=== PATIENT | female | born 1965 | race Caucasian/White ===

== ENCOUNTER 2018-10-17 04:33 | Inpatient (IN) | payer BC ==
[2018-10-17] MEDS ORDERED: SODIUM CHLORIDE 0.9% 1,000 ML IV STA (04:45)
[2018-10-17] MEDS ORDERED: ASPIRIN 81 MG PO STA (04:45)
--- NOTE | 2018-10-17 04:46 | ED ---
General Adult HPI - General Chief complaint: Chest Pain Stated complaint: chest pain Time Seen by Provider: 10/17/18 04:44 Source: patient Mode of arrival: ambulatory Limitations: no limitations - History of Present Illness Initial comments: Thao is a 53-year-old female who presents to the emergency department today for evaluation of sudden onset of abdominal pain, chest pain, nausea and vomiting. She reports she has been in her usual state of health, she woke suddenly this morning of severe stabbing epigastric abdominal pain which radiates through to her back and into her chest, is 10 out of 10 in intensity associated with nausea, vomiting and a sensation of shortness of breath due to pain with breathing. She has never experienced anything like this in the past. She has no known cardiac history. - Related Data Home Medications Medication Instructions Recorded Confirmed Escitalopram [Lexapro] 20 mg PO DAILY 10/17/18 10/17/18 Magnesium 200 mg PO DAILY 10/17/18 10/17/18 [place]-3 Fatty Acids/Fish Oil [Fish 1 tab PO DAILY 10/17/18 10/17/18 Oil 1,000 mg Softgel] Turmeric Root Extract [Turmeric] 500 mg PO DAILY 10/17/18 10/17/18 traZODone HCL 50 mg PO HS PRN 10/17/18 10/17/18 Allergies Allergy/AdvReac Type Severity Reaction Status Date / Time acetaminophen [From Percocet] AdvReac Vomiting Verified 10/17/18 08:24 oxycodone [From Percocet] AdvReac Vomiting Verified 10/17/18 08:24 Review of Systems ROS Statement: Those systems with pertinent positive or pertinent negative responses have been documented in the HPI. ROS Other: All systems not noted in ROS Statement are negative. Past Medical History Additional Past Medical History / Comment(s): cpap at night History of Any Multi-Drug Resistant Organisms: None Reported Past Surgical History: Adenoidectomy, Appendectomy, Orthopedic Surgery Additional Past Surgical History / Comment(s): finger surgery, Smoking Status: Current every day smoker Past Alcohol Use History: None Reported Past Drug Use History: None Reported General Exam - General Exam Comments Initial Comments: Physical Exam GENERAL: Patient in severe pain, hunched over, heaving HENT: Normocephalic, Atraumatic. EYES: PERRL, EOMI PULMONARY: Tachypnea CARDIOVASCULAR: There is a regular rate and rhythm without any murmurs gallops or rubs. ABDOMEN: Tenderness to palpation in the epigastrium and right upper quadrant SKIN: Skin is clear with no lesions or rashes and otherwise unremarkable. : Deferred NEUROLOGIC: Patient is alert and oriented x3. Moving all extremities spontaneously MUSCULOSKELETAL: Normal extremities with adequate strength and full range of motion. No lower extremity swelling or edema. No calf tenderness. PSYCHIATRIC: Normal psychiatric evaluation. Limitations: no limitations Limitations: no limitations Course Vital Signs 10/17/18 10/17/18 10/17/18 04:36 06:10 07:03 Pulse Rate 66 78 78 Respiratory 20 18 16 Rate Blood Pressure 111/67 118/87 129/83 O2 Sat by Pulse 95 99 96 Oximetry 10/17/18 07:50 Pulse Rate 74 Respiratory 18 Rate Blood Pressure 120/60 O2 Sat by Pulse 98 Oximetry EKG Findings - EKG Comments: EKG Findings:: EKG obtained therefore 30 9 AM, rate is 66, rhythm sinus, there is normal axis, normal intervals, WI 140, QRS 86, QTC is 434. There are no acute ST elevations or depressions there is no evidence of acute ischemia or infarction. Medical Decision Making - Medical Decision Making was seen and evaluated immediately upon arrival to the emergency department, patient is in acute distress, retching, holding her stomach, complains of pain from her epigastrium through her chest with associated nausea , vomiting and shortness of breath Cardiac as well as abdominal labs ordered Labs consistent with acute pancreatitis Additional IV fluids, IV narcotics, antiemetics ordered US was ordered and revealed no dilatation of the common bile duct and no evidence of acute cholecystitis Patient care was discussed with Dr. Rodriguez who accepts the admission for acute pancreatitis, requests lipid panel and triglycerides to be evaluated, holds statin medications, consult GI Winkelman orders placed - Lab Data Result diagrams: 10/17/18 04:47 10/17/18 05:51 Lab Results 10/17/18 10/17/18 10/17/18 Range/Units 04:47 04:47 04:47 WBC 14.7 H (3.8-10.6) k/uL RBC 5.20 (3.80-5.40) m/uL Hgb 14.7 (11.4-16.0) gm/dL Hct 45.9 (34.0-46.0) % MCV 88.2 (80.0-100.0) fL MCH 28.3 (25.0-35.0) pg MCHC 32.1 (31.0-37.0) g/dL RDW 14.3 (11.5-15.5) % Plt Count 334 (150-450) k/uL Neutrophils % 81 % Lymphocytes % 12 % Monocytes % 4 % Eosinophils % 1 % Basophils % 0 % Neutrophils # 11.9 H (1.3-7.7) k/uL Lymphocytes # 1.8 (1.0-4.8) k/uL Monocytes # 0.6 (0-1.0) k/uL Eosinophils # 0.2 (0-0.7) k/uL Basophils # 0.0 (0-0.2) k/uL PT 10.2 (9.0-12.0) sec INR 0.9 (<1.2) APTT 22.4 (22.0-30.0) sec D-Dimer 0.79 H (<0.60) mg/L FEU Sodium (137-145) mmol/L Potassium (3.5-5.1) mmol/L Chloride (98-107) mmol/L Carbon Dioxide (22-30) mmol/L Anion Gap mmol/L BUN (7-17) mg/dL Creatinine (0.52-1.04) mg/dL Est GFR (CKD-EPI)AfAm (>60 ml/min/1.73 sqM) Est GFR (CKD-EPI)NonAf (>60 ml/min/1.73 sqM) Glucose (74-99) mg/dL Calcium (8.4-10.2) mg/dL Magnesium (1.6-2.3) mg/dL Total Bilirubin (0.2-1.3) mg/dL AST (14-36) U/L ALT (9-52) U/L Alkaline Phosphatase (38-126) U/L Total Creatine Kinase (30-135) U/L CK-MB (CK-2) (0.0-2.4) ng/mL CK-MB (CK-2) Rel Index Troponin I (0.000-0.034) ng/mL NT-Pro-B Natriuret Pep 70 pg/mL Total Protein (6.3-8.2) g/dL Albumin (3.5-5.0) g/dL Triglycerides (<150) mg/dL Cholesterol (<200) mg/dL LDL Cholesterol, Calc (0-99) mg/dL HDL Cholesterol (40-60) mg/dL Amylase (30-110) U/L Lipase (23-300) U/L 10/17/18 10/17/18 10/17/18 Range/Units 05:51 05:51 05:51 WBC (3.8-10.6) k/uL RBC (3.80-5.40) m/uL Hgb (11.4-16.0) gm/dL Hct (34.0-46.0) % MCV (80.0-100.0) fL MCH (25.0-35.0) pg MCHC (31.0-37.0) g/dL RDW (11.5-15.5) % Plt Count (150-450) k/uL Neutrophils % % Lymphocytes % % Monocytes % % Eosinophils % % Basophils % % Neutrophils # (1.3-7.7) k/uL Lymphocytes # (1.0-4.8) k/uL Monocytes # (0-1.0) k/uL Eosinophils # (0-0.7) k/uL Basophils # (0-0.2) k/uL PT (9.0-12.0) sec INR (<1.2) APTT (22.0-30.0) sec D-Dimer (<0.60) mg/L FEU Sodium 141 (137-145) mmol/L Potassium (3.5-5.1) mmol/L Chloride 110 H (98-107) mmol/L Carbon Dioxide 24 (22-30) mmol/L Anion Gap 7 mmol/L BUN 17 (7-17) mg/dL Creatinine 0.56 (0.52-1.04) mg/dL Est GFR (CKD-EPI)AfAm >90 (>60 ml/min/1.73 sqM) Est GFR (CKD-EPI)NonAf >90 (>60 ml/min/1.73 sqM) Glucose 158 H (74-99) mg/dL Calcium 8.2 L (8.4-10.2) mg/dL Magnesium 1.8 (1.6-2.3) mg/dL Total Bilirubin 0.4 (0.2-1.3) mg/dL AST 38 H (14-36) U/L ALT 42 (9-52) U/L Alkaline Phosphatase 123 (38-126) U/L Total Creatine Kinase 75 (30-135) U/L CK-MB (CK-2) 0.5 (0.0-2.4) ng/mL CK-MB (CK-2) Rel Index 0.7 Troponin I <0.012 (0.000-0.034) ng/mL NT-Pro-B Natriuret Pep pg/mL Total Protein 6.7 (6.3-8.2) g/dL Albumin 3.6 (3.5-5.0) g/dL Triglycerides 69 (<150) mg/dL Cholesterol 156 (<200) mg/dL LDL Cholesterol, Calc 94 (0-99) mg/dL HDL Cholesterol 48 (40-60) mg/dL Amylase 3082 H* (30-110) U/L Lipase >68869 H (23-300) U/L Disposition Clinical Impression: Acute pancreatitis Disposition: ADMITTED IP TO THIS HOSP Referrals: Vera Laureano MD [Primary Care Provider] - 1-2 days
[2018-10-17] MEDS: ONDANSETRON 4 MG/2 ML VIAL IVP STA ×2 (04:56→07:54)
[2018-10-17 05:08] LABS: Basophils % (A) 0 %; Eosinophils # (A) 0.2 k/uL (0-0.7); Eosinophils % (A) 1 %; HCT 45.9 % (34.0-46.0); HGB 14.7 gm/dL (11.4-16.0); Lymphocytes # (A) 1.8 k/uL (1.0-4.8); Lymphocytes % (A) 12 %; MCH 28.3 pg (25.0-35.0); MCHC 32.1 g/dL (31.0-37.0); MCV 88.2 fL (80.0-100.0); Mean Platelet Volume 6.8; Monocytes # (A) 0.6 k/uL (0-1.0); Monocytes % (A) 4 %; Neutrophils # (A) 11.9 k/uL (1.3-7.7); Neutrophils % (A) 81 %; Platelet Count 334 k/uL (150-450); RDW 14.3 % (11.5-15.5); WBC 14.7 k/uL (3.8-10.6)
--- NOTE | 2018-10-17 05:17 | XR ---
EXAM: XR Chest, 2 Views CLINICAL HISTORY: ITS.REASON XR Reason: Chest Pain TECHNIQUE: Frontal and lateral views of the chest. COMPARISON: No relevant prior studies available. FINDINGS: Lungs: Unremarkable. No consolidation. Pleural space: Unremarkable. No pneumothorax. Heart: Unremarkable. No cardiomegaly. Mediastinum: Unremarkable. Bones/joints: Unremarkable. IMPRESSION: No acute radiographic findings.
[2018-10-17 05:47] LABS: INR 0.9 (<1.2); Partial Thromboplastin Time 22.4 sec (22.0-30.0); Prothrombin Time 10.2 sec (9.0-12.0)
[2018-10-17 06:05] LABS: D-Dimer 0.79 mg/L FEU (<0.60)
[2018-10-17] MEDS ORDERED: MORPHINE SULFATE 4 MG/ML SYRINGE IVP STA (06:05)
[2018-10-17 06:21] LABS: ALT 42 U/L (9-52); AST 38 U/L (14-36); Albumin 3.6 g/dL (3.5-5.0); Alkaline Phosphatase 123 U/L (38-126); Anion Gap 7 mmol/L; Blood Urea Nitrogen 17 mg/dL (7-17); Calcium 8.2 mg/dL (8.4-10.2); Carbon Dioxide 24 mmol/L (22-30); Chloride 110 mmol/L (98-107); Glucose 158 mg/dL (74-99); Magnesium 1.8 mg/dL (1.6-2.3); Sodium 141 mmol/L (137-145); Total Bilirubin 0.4 mg/dL (0.2-1.3); Total Protein 6.7 g/dL (6.3-8.2)
[2018-10-17 06:24] LABS: Creatine Kinase 75 U/L (30-135)
[2018-10-17 06:37] LABS: Creatine Kinase MB 0.5 ng/mL (0.0-2.4); Troponin I <0.012 ng/mL (0.000-0.034)
[2018-10-17 06:52] LABS: Amylase 3082 U/L (30-110); Lipase >20000 U/L (23-300)
[2018-10-17] MEDS ORDERED: SODIUM CHLORIDE 0.9% 2,000 ML IV ONE (07:03)
[2018-10-17] MEDS ORDERED: HYDROmorphone 1 MG/ML 1 ML SYRINGE IVP PRN (07:03)
--- NOTE | 2018-10-17 07:44 | US ---
EXAMINATION TYPE: US gallbladder DATE OF EXAM: 10/17/2018 COMPARISON: NONE CLINICAL HISTORY: Pain. chest heaviness, generalized abd pain EXAM MEASUREMENTS: Liver Length: 15.8 cm Gallbladder Wall: 0.3 cm CBD: 0.6 cm Right Kidney: 9.6 x 4.2 x 4.6 cm Technically difficult study due to midline bowel gas and body habitus. Pancreas: limited visualization due to midline bowel gas Liver: wnl Gallbladder: no obvious stones seen Evidence for sonographic Stapleton's sign: Yes CBD: wnl Right Kidney: No hydronephrosis or masses seen IMPRESSION: Suboptimal study but no shadowing mobile gallstones or ultrasound evidence for acute chol ecystitis.
[2018-10-17] MEDS ORDERED: NALOXONE 0.4 MG/ML 1 ML VIAL IV PRN (08:29)
[2018-10-17] MEDS ORDERED: ONDANSETRON 4 MG/2 ML VIAL IVP PRN (08:29)
[2018-10-17 08:30] LABS: Cholesterol 156 mg/dL (<200); HDL Cholesterol 48 mg/dL (40-60); LDL Cholesterol,Calculated 94 mg/dL (0-99); Triglycerides 69 mg/dL (<150)
[2018-10-17] MEDS: MORPHINE SULFATE 4 MG/ML SYRINGE IV PRN ×3 (10:47→18:40)
[2018-10-17] MEDS: SODIUM CHLORIDE 0.9% 1,000 ML IV SCH ×2 (10:49→13:16)
[2018-10-17] MEDS: PANTOPRAZOLE 40 MG/10 ML VIAL IV SCH (10:50)
[2018-10-17] MEDS ORDERED: IOPAMIDOL-300 CONTRAST 30 ML VIAL (ORAL USE) PO PRN (12:11)
[2018-10-17] MEDS ORDERED: INFLUENZA VACCINE (6 MOS+) 60 MCG/0.5 ML SYRINGE IM ONE (13:28)
[2018-10-17] MEDS ORDERED: PROCHLORPERAZINE SUPPOSITORY 25 MG SUPP RECTAL PRN (13:29)
--- NOTE | 2018-10-17 13:37 | P.CONS ---
History of Present Illness - Reason for Consult Consult date: 10/17/18 pancreatitis Requesting physician: Dahiana Rodriguez - Chief Complaint abdominal pain - History of Present Illness 53-year-old female with a past medical history of GERD, sleep apnea, anxiety, depression presents with acute chest epigastric abdominal pain that started earlier today. Patient describes it as "like a heart attack". Sharp in nature radiating to her backside and upper abdomen. No history of this type of pain. Denies fever chills hematemesis hematochezia or melena. Intermittent nausea and emesis. White count 14.7. Hemoglobin 14.7. BUN 17. Creatinine 0.5. D- dimer 0.7. Lipase greater than 20,000. Amylase 3082. LFTs within normal limits. Triglycerides 69. No changes in medications. No history of autoimmune disorders. No history of alcoholism. No history of peptic ulcer disease. Patient has been Nursing some mild indigestion for the last few weeks preceding this pain. EGD few years ago in [place] described as a possible esophageal dilation she is unsure. CT abdomen and pelvis has been ordered results are pending. Ultrasound of the abdomen no evidence of cholelithiasis. CBD 0.6 cm. Limited visualization of the pancreas due to midline bowel gas. Liver within normal limits. No evidence of acute cholecystitis. Review of Systems Constitutional: Denies fever, chills, sweats, weight gain, or loss. HEENT: Negative for migraines, blurred vision or loss, earaches, drainage, tinnitus, oral mucosal lesions, dysphagia, or odynophagia. CARDIAC: Negative for chest pain, arrhythmias, or palpitation. RESPIRATORY: Negative for shortness of breath, hemoptysis, cough, or sputum production. GI: See HPI for pertinent findings. : Negative for hematuria, urgency, frequency, polyuria, or dysuria. GYNc: Denies possibility of . Negative vaginal discharge. MUSCULOSKELETAL: Negative for muscle aches, swelling, arthritis, and arthralgias. NEUROLOGIC: Negative for stroke or TIA. ENDOCRINE: Negative for thyroid problems. SKIN: Negative for rash or itching. PSYCHIATRIC: Negative history for depression and anxiety Past Medical History Past Medical History: GERD/Reflux, Osteoarthritis (OA), Pneumonia, Sleep Apnea/ CPAP/BIPAP Additional Past Medical History / Comment(s): Cpap at night, occasional sinus problems, lungs have scar tissue thought d/t previous pneumonias, bronchitis,. dysphagia at times. History of Any Multi-Drug Resistant Organisms: None Reported Past Surgical History: Adenoidectomy, Appendectomy, Orthopedic Surgery Additional Past Surgical History / Comment(s): EGD, colonoscopies x 2-normal, D& C, R middle finger surgery, Past Anesthesia/Blood Transfusion Reactions: Motion Sickness Smoking Status: Never smoker - Past Family History Mother Family Medical History: Dementia Additional Family Medical History / Comment(s): Mother is . Father Family Medical History: Rheumatoid Arthritis (RA) Additional Family Medical History / Comment(s): Father is . He had pulmonary fibrosis. Medications and Allergies Home Medications Medication Instructions Recorded Confirmed Type Escitalopram [Lexapro] 20 mg PO DAILY 10/17/18 10/17/18 History Magnesium 200 mg PO DAILY 10/17/18 10/17/18 History [place]-3 Fatty Acids/Fish Oil [Fish 1 tab PO DAILY 10/17/18 10/17/18 History Oil 1,000 mg Softgel] Turmeric Root Extract [Turmeric] 500 mg PO DAILY 10/17/18 10/17/18 History traZODone HCL 50 mg PO HS PRN 10/17/18 10/17/18 History Allergies Allergy/AdvReac Type Severity Reaction Status Date / Time acetaminophen [From Percocet] AdvReac Vomiting Verified 10/17/18 08:24 oxycodone [From Percocet] AdvReac Vomiting Verified 10/17/18 08:24 Physical Exam Vitals: Vital Signs Temp Pulse Pulse Resp BP BP Pulse Ox 10/17/18 12:03 98.5 F 83 18 122/75 98 10/17/18 10:54 82 18 120/68 98 10/17/18 07:50 74 18 120/60 98 10/17/18 07:03 78 16 129/83 96 10/17/18 06:10 78 18 118/87 99 10/17/18 04:36 66 20 111/67 95 Intake and Output 10/16/18 10/17/18 10/17/18 22:59 06:59 14:59 Other: Voiding Method Toilet Weight 97.522 kg General appearance: The patient is alert, oriented, in no acute distress. HET: Head is normocephalic and atraumatic. Pupils are equal and reactive. Oropharynx is clear without lesions. Neck: Supple without lymphadenopathy. Trachea midline. Heart: S1 S2. Regular rate and rhythm. Lungs: No crackles or wheezes are heard. Abdomen: Soft, moderate tenderness in epigastrium and bilateral upper abdomen with mild guarding no rebound, nondistended with bowel sounds. No peritoneal signs. No palpable organomegaly or masses. Extremities: Normal skin color and turgor. No cyanosis, rash, ulceration, clubbing, or edema. Radial and pedal pulses are 2/4 bilaterally. Neurological: No focal deficits. Strength and sensation are grossly intact. Results CBC & Chem 7: 10/18/18 07:19 10/18/18 07:19 Labs: Abnormal Lab Results - Last 24 Hours (Table) 10/17/18 10/17/18 10/17/18 Range/Units 04:47 04:47 05:51 WBC 14.7 H (3.8-10.6) k/uL Neutrophils # 11.9 H (1.3-7.7) k/uL D-Dimer 0.79 H (<0.60) mg/L FEU Chloride 110 H (98-107) mmol/L Glucose 158 H (74-99) mg/dL Calcium 8.2 L (8.4-10.2) mg/dL AST 38 H (14-36) U/L Amylase 3082 H* (30-110) U/L Lipase >91272 H (23-300) U/L CT scan - abdomen: pending US - abdomen: report reviewed (Dr. Joseph) Assessment and Plan (1) Acute pancreatitis Narrative/Plan: Severe acute pancreatitis. First episode etiology unclear possible biliary pancreatitis possible peptic ulcer disease possible autoimmune. Current Visit: Yes Status: Acute Code(s): K85.90 - ACUTE PANCREATITIS WITHOUT NECROSIS OR INFECTION, UNSP SNOMED Code(s): 172479616 Plan: 1. CT abdomen and pelvis. IgG subclass 1-4. ENZO. 2. IV hydration 200 mL an hour. 3. GI prophylaxis Protonix 40 mg IV daily. Antiemetics. Nothing by mouth except medications. 4. Inpatient EGD discussed pending CT results and biochemical improvement of pancreatic enzymes. CBC CMP amylase lipase in a.m. Thank you for this kind referral and the opportunity to participate in the care of your patient. This consultation was discussed with Dr. Joseph. The impression and plan of care have been directed as dictated.
--- NOTE | 2018-10-17 18:20 | P.HPIM ---
History of Present Illness H&P Date: 10/17/18 Chief Complaint: Abdominal pain left flank This is a pleasant 53-year-old lady patient of Dr. Larueano for which she comes in from [place]. He is to establish a Dr. Laureano 11/17/2018. Patient was admitted to the emergency room secondary to abdominal pain, epigastric and left flank area for the past several hours. Pain started at 12:00 early this morning , accompanied by nausea, and vomiting, thereafter the abdominal pain started patient had no sick contacts, patient does not drink alcohol routinely, however she came from [place] first week of September, stayed there for 2 days. Patient was drinking alcohol beverages at that time, and was well when he came in. Patient felt weak when she came back from [place], however the abdominal pain started on the this morning. Patient denies any melena hematochezia, patient denies any history of previous gallbladder stones, no history of pancreatitis in the past. Patient was seen in the emergency room with evaluation significant for lipase over 20,000 liver function test shows normal alkaline phosphatase 123 AST slightly high at 38 ALT normal 40 to be early normal 0.4 triglyceride normal on 69 calcium of 8.2. Ultrasound of the abdomen suboptimal study, no gallbladder stones, negative positive for Stapleton sign, liver within normal limit , common bile duct 0.6 cm Review of Systems Constitutional: Reports as per HPI, Denies anorexia, Denies chills, Denies chronic headaches, Denies chronic pain, Denies daytime sleepiness, Denies fatigue, Denies fever, Denies lethargy, Denies malaise, Denies night sweats, Denies poor appetite, Denies sweats, Denies weakness, Denies weight gain, Denies weight loss Ears, nose, mouth and throat: Reports as per HPI, Denies ant. neck pain, Denies bleeding gums, Denies dental pain, Denies dysphagia, Denies epistaxis, Denies headache, Denies hoarseness, Denies mouth pain, Denies nasal congestion, Denies nasal discharge, Denies neck fullness/pressure, Denies neck lump, Denies nose pain, Denies odynophagia, Denies post-nasal drip, Denies sinus pain, Denies sinus pressure, Denies swelling in mouth, Denies swelling in throat, Denies sore throat, Denies vertigo, Denies voice changes Cardiovascular: Reports as per HPI, Denies chest pain, Denies claudication, Denies decreased exercise tolerance, Denies dyspnea on exertion, Denies edema, Denies high blood pressure, Denies irregular heart beat, Denies leg edema, Denies lightheadedness, Denies orthopnea, Denies palpitations, Denies paroxysmal nocturnal dyspnea, Denies phlebitis, Denies rapid heart beat, Denies shortness of breath, Denies syncope Respiratory: Reports as per HPI, Denies congestion, Denies cough, Denies cough with sputum, Denies dyspnea, Denies excessive sputum, Denies hemoptysis, Denies home oxygen, Denies pain, Denies pain on inspiration, Denies pleurisy, Denies respiratory infections, Denies sleep apnea, Denies snoring, Denies wheezing Gastrointestinal: Reports as per HPI, Reports abdominal pain, Reports bloating, Reports nausea, Reports vomiting, Denies belching, Denies BRBPR, Denies change in bowel habits, Denies coffee ground emesis, Denies constipation, Denies diarrhea, Denies dyspepsia, Denies early satiety, Denies excessive gas, Denies heartburn, Denies hematemesis, Denies hematochezia, Denies indigestion, Denies jaundice, Denies lactose intolerance, Denies loss of appetite, Denies melena Genitourinary: Reports as per HPI, Denies abnormal vaginal bleeding, Denies decreased libido, Denies difficulty conceiving, Denies difficulty voiding, Denies dysmenorrhea, Denies dyspareunia, Denies dysuria, Denies flank pain, Denies genital sores, Denies hematuria, Denies hot flashes, Denies incomplete emptying, Denies kidney stones, Denies menorrhagia, Denies mixed incontinence, Denies nocturia, Denies pelvic pain, Denies post void dribbling, Denies , Denies prolapse symptoms, Denies stress incontinence, Denies urge incontinence , Denies urgency, Denies urinary frequency, Denies vaginal discharge, Denies vaginal dryness, Denies vaginal itching, Denies vaginal odor Menstruation: Reports as per HPI, Denies amenorrhea, Denies amenorrhea on BC, Denies currently menstrual, Denies cycle < 21 days, Denies cycle > 35 days, Denies cycle variable, Denies menses 1-7 days, Denies menses 8 or > days, Denies menses variable, Denies period heavy, Denies period light, Denies period normal, Denies period spotting, Denies post hysterectomy, Denies postmenopausal , Denies premenarcheal Musculoskeletal: Reports as per HPI, Denies arm numbness/tingling, Denies atrophy, Denies fractures, Denies frequent falls, Denies gait dysfunction, Denies hot joints, Denies leg numbness/tingling, Denies limitation of motion, Denies loss of height, Denies low back pain, Denies morning stiffness, Denies muscle cramps, Denies muscle weakness, Denies myalgias, Denies neck pain, Denies neck stiffness, Denies prior amputations, Denies redness of joints, Denies shooting arm pain, Denies shooting leg pain Integumentary: Reports as per HPI, Denies acne, Denies boils, Denies brittle nails, Denies change in hair/nails, Denies color changes, Denies darkening of skin, Denies depigmentation, Denies dryness, Denies foot/leg ulcers, Denies growths, Denies hirsutism, Denies lesions, Denies onychomycosis, Denies pruritus , Denies rash, Denies sores, Denies striae, Denies unusual bruising, Denies wounds Neurological: Reports as per HPI, Denies aphasia, Denies ataxia, Denies balance difficulties, Denies burning pain, Denies change in mentation, Denies change in smell/taste, Denies change in speech, Denies confusion, Denies convulsions, Denies double vision, Denies gait dysfunction, Denies head injury, Denies headaches, Denies hearing difficulties, Denies lack of coordination, Denies loss of vision, Denies memory loss, Denies migraines, Denies motor disturbance, Denies numbness, Denies paralysis, Denies paresthesias, Denies seizures, Denies sensory deficit, Denies spasticity, Denies syncope, Denies tic, Denies tingling , Denies transient paralysis, Denies tremors, Denies vertigo, Denies weakness, Denies visual changes Psychiatric: Reports as per HPI Endocrine: Reports as per HPI Hematologic/Lymphatic: Reports as per HPI Allergic/Immunologic: Reports as per HPI Past Medical History Past Medical History: GERD/Reflux, Osteoarthritis (OA), Pneumonia, Sleep Apnea/ CPAP/BIPAP Additional Past Medical History / Comment(s): Cpap at night, occasional sinus problems, lungs have scar tissue thought d/t previous pneumonias, bronchitis,. dysphagia at times. History of Any Multi-Drug Resistant Organisms: None Reported Past Surgical History: Adenoidectomy, Appendectomy, Orthopedic Surgery Additional Past Surgical History / Comment(s): EGD, colonoscopies x 2-normal, D& C, R middle finger surgery, Past Anesthesia/Blood Transfusion Reactions: Motion Sickness Smoking Status: Never smoker - Past Family History Mother Family Medical History: Dementia Additional Family Medical History / Comment(s): Mother is . Father Family Medical History: Rheumatoid Arthritis (RA) Additional Family Medical History / Comment(s): Father is . He had pulmonary fibrosis. Medications and Allergies Home Medications Medication Instructions Recorded Confirmed Type Escitalopram [Lexapro] 20 mg PO DAILY 10/17/18 10/17/18 History Magnesium 200 mg PO DAILY 10/17/18 10/17/18 History [place]-3 Fatty Acids/Fish Oil [Fish 1 tab PO DAILY 10/17/18 10/17/18 History Oil 1,000 mg Softgel] Turmeric Root Extract [Turmeric] 500 mg PO DAILY 10/17/18 10/17/18 History traZODone HCL 50 mg PO HS PRN 10/17/18 10/17/18 History Allergies Allergy/AdvReac Type Severity Reaction Status Date / Time acetaminophen [From Percocet] AdvReac Vomiting Verified 10/17/18 08:24 oxycodone [From Percocet] AdvReac Vomiting Verified 10/17/18 08:24 Physical Exam Vitals: Vital Signs Temp Pulse Pulse Pulse Resp BP BP 10/17/18 15:00 97.8 F 83 16 10/17/18 12:03 98.5 F 83 18 122/75 10/17/18 10:54 82 18 120/68 10/17/18 07:50 74 18 120/60 10/17/18 07:03 78 16 129/83 10/17/18 06:10 78 18 118/87 10/17/18 04:36 66 20 111/67 BP Pulse Ox 10/17/18 15:00 105/66 93 L 10/17/18 12:03 98 10/17/18 10:54 98 10/17/18 07:50 98 10/17/18 07:03 96 10/17/18 06:10 99 10/17/18 04:36 95 Intake and Output 10/17/18 10/17/18 10/17/18 06:59 14:59 22:59 Other: Voiding Method Toilet # Voids 0 # Bowel Movements 0 Weight 97.522 kg - Constitutional General appearance: average body habitus, cooperative, no acute distress, obese - EENT Eyes: anicteric sclerae, EOMI, PERRLA ENT: NA/AT, normal oropharynx - Neck Neck: no lymphadenopathy, normal ROM, no other, no rigidity, no stridor, no thyromegaly - Respiratory Respiratory: bilateral: CTA - Cardiovascular Rhythm: regular Heart sounds: normal: S1, S2 Abnormal Heart Sounds: no systolic murmur, no diastolic murmur, no rub, no S3 Gallop, no S4 Gallop, no click, no other - Gastrointestinal General gastrointestinal: normal bowel sounds, soft - Integumentary Integumentary: decreased turgor, normal - Neurologic Neurologic: CNII-XII intact - Musculoskeletal Musculoskeletal: gait normal, strength equal bilaterally - Psychiatric Psychiatric: A&O x's 3, appropriate affect, intact judgment & insight Results CBC & Chem 7: 10/17/18 04:47 10/17/18 05:51 Labs: Abnormal Lab Results - Last 24 Hours (Table) 10/17/18 10/17/18 10/17/18 Range/Units 04:47 04:47 05:51 WBC 14.7 H (3.8-10.6) k/uL Neutrophils # 11.9 H (1.3-7.7) k/uL D-Dimer 0.79 H (<0.60) mg/L FEU Chloride 110 H (98-107) mmol/L Glucose 158 H (74-99) mg/dL Calcium 8.2 L (8.4-10.2) mg/dL AST 38 H (14-36) U/L Amylase 3082 H* (30-110) U/L Lipase >06015 H (23-300) U/L Laboratory Results WBC 14.7 k/uL (3.8-10.6) H 10/17/18 04:47 RBC 5.20 m/uL (3.80-5.40) 10/17/18 04:47 Hgb 14.7 gm/dL (11.4-16.0) 10/17/18 04:47 Hct 45.9 % (34.0-46.0) 10/17/18 04:47 MCV 88.2 fL (80.0-100.0) 10/17/18 04:47 MCH 28.3 pg (25.0-35.0) 10/17/18 04:47 MCHC 32.1 g/dL (31.0-37.0) 10/17/18 04:47 RDW 14.3 % (11.5-15.5) 10/17/18 04:47 Plt Count 334 k/uL (150-450) 10/17/18 04:47 Neutrophils % 81 % 10/17/18 04:47 Lymphocytes % 12 % 10/17/18 04:47 Monocytes % 4 % 10/17/18 04:47 Eosinophils % 1 % 10/17/18 04:47 Basophils % 0 % 10/17/18 04:47 Neutrophils # 11.9 k/uL (1.3-7.7) H 10/17/18 04:47 Lymphocytes # 1.8 k/uL (1.0-4.8) 10/17/18 04:47 Monocytes # 0.6 k/uL (0-1.0) 10/17/18 04:47 Eosinophils # 0.2 k/uL (0-0.7) 10/17/18 04:47 Basophils # 0.0 k/uL (0-0.2) 10/17/18 04:47 PT 10.2 sec (9.0-12.0) 10/17/18 04:47 INR 0.9 (<1.2) 10/17/18 04:47 APTT 22.4 sec (22.0-30.0) 10/17/18 04:47 D-Dimer 0.79 mg/L FEU (<0.60) H 10/17/18 04:47 Sodium 141 mmol/L (137-145) 10/17/18 05:51 Potassium mmol/L (3.5-5.1) 10/17/18 05:51 Chloride 110 mmol/L (98-107) H 10/17/18 05:51 Carbon Dioxide 24 mmol/L (22-30) 10/17/18 05:51 Anion Gap 7 mmol/L 10/17/18 05:51 BUN 17 mg/dL (7-17) 10/17/18 05:51 Creatinine 0.56 mg/dL (0.52-1.04) 10/17/18 05:51 Est GFR (CKD-EPI)AfAm >90 (>60 ml/min/1.73 sqM) 10/17/18 05:51 Est GFR (CKD-EPI)NonAf >90 (>60 ml/min/1.73 sqM) 10/17/18 05:51 Glucose 158 mg/dL (74-99) H 10/17/18 05:51 Calcium 8.2 mg/dL (8.4-10.2) L 10/17/18 05:51 Magnesium 1.8 mg/dL (1.6-2.3) 10/17/18 05:51 Total Bilirubin 0.4 mg/dL (0.2-1.3) 10/17/18 05:51 AST 38 U/L (14-36) H 10/17/18 05:51 ALT 42 U/L (9-52) 10/17/18 05:51 Alkaline Phosphatase 123 U/L (38-126) 10/17/18 05:51 Total Creatine Kinase 75 U/L (30-135) 10/17/18 05:51 CK-MB (CK-2) 0.5 ng/mL (0.0-2.4) 10/17/18 05:51 CK-MB (CK-2) Rel Index 0.7 10/17/18 05:51 Troponin I <0.012 ng/mL (0.000-0.034) 10/17/18 05:51 NT-Pro-B Natriuret Pep 70 pg/mL 10/17/18 04:47 Total Protein 6.7 g/dL (6.3-8.2) 10/17/18 05:51 Albumin 3.6 g/dL (3.5-5.0) 10/17/18 05:51 Triglycerides 69 mg/dL (<150) 10/17/18 05:51 Cholesterol 156 mg/dL (<200) 10/17/18 05:51 LDL Cholesterol, Calc 94 mg/dL (0-99) 10/17/18 05:51 HDL Cholesterol 48 mg/dL (40-60) 10/17/18 05:51 Amylase 3082 U/L (30-110) H* 10/17/18 05:51 Lipase >77571 U/L (23-300) H 10/17/18 05:51 Thrombosis Risk Factor Assmnt - DVT/VTE Prophylaxis DVT/VTE Prophylaxis: Low risk, early ambulation encouraged - Choose All That Apply Any of the Below Risk Factors Present?: Yes Each Factor Represents 1 point: Age 41-60 years, Obesity (BMI >25) Other Risk Factors: No Other congenital or acquired thrombophilia - If yes, enter type in comment: No Thrombosis Risk Factor Assessment Total Risk Factor Score: 2 Thrombosis Risk Factor Assessment Level: Low Risk Assessment and Plan Plan: 1. Acute pancreatitis, with first episode, no history of gallbladder stones to pass, common bile duct is not dilated, etiology could be finalized and spontaneous [id number] however passage of gallbladder stone cannot be ruled out. Patient is not on any statin, lipid panel is normal Patient was in consultation by Dr. Whitaker GI, CAT scan of the abdomen and pelvis to be done, follow-up lipase, and patient would be made nothing by mouth. Patient will be screened also for coxsackievirus as well as CMV virus for viral etiology of pancreatitis. 2. Obstructive sleep apnea on CPAP machine 3. Obesity, BMI 32 4. Mild elevation of liver function tests, possibly related to IBARRA patient would need hepatitis panel for completion of workup GI prophylaxis omeprazole IV DVT prophylaxis early ambulation Dysthymia on Celexa no changes made
--- NOTE | 2018-10-17 18:38 | CT ---
EXAMINATION TYPE: CT abdomen pelvis w con DATE OF EXAM: 10/17/2018 COMPARISON: None HISTORY: Nausea, vomiting and epigastric pain. CT DLP: 1661.7 mGycm Automated exposure control for dose reduction was used. TECHNIQUE: Helical acquisition of images was performed from the lung bases through the pelvis. CONTRAST: Performed without Oral Contrast and with IV Contrast, patient injected with 100ml mL of Isovue 300. FINDINGS: There is subsegmental atelectasis at the lung bases. There is mild pleural thickening at the lung bas es. Heart size is normal. There is no pericardial effusion. Liver and spleen appear normal. Bile ducts are not dilated. Gallbladder measures 4 cm. There is fat s tranding in the upper abdomen around the pancreas. There is small amount of fluid in the right anteri or pararenal space. There is no adrenal mass. Kidneys show satisfactory contrast opacification. There is no hydronephrosi s. Ureters are not dilated. There is no retroperitoneal adenopathy. There is no intestinal wall thick ening. There are no dilated loops. Bladder distends smoothly. There is no inguinal hernia. There is no free fluid in the pelvis. There is no mesenteric edema or adenopathy. The bony structures show 15% anterior wedging of L1 that appears old. I see no acute fracture. The [place] pelvis is intact. IMPRESSION: THERE IS PLEURAL THICKENING AND ATELECTASIS AT THE LUNG BASES. FLUID AND FAT STRANDING AROUND THE ENTIRE PANCREAS CONSISTENT WITH PANCREATITIS.
[2018-10-17] MEDS: HYDROmorphone 1 MG/ML 1 ML SYRINGE IVP PRN (21:55)
[2018-10-18] MEDS: SODIUM CHLORIDE 0.9% 1,000 ML IV SCH ×3 (00:35→20:06)
[2018-10-18] MEDS: HYDROmorphone 1 MG/ML 1 ML SYRINGE IVP PRN ×4 (02:02→12:22)
[2018-10-18] MEDS: ONDANSETRON 4 MG/2 ML VIAL IVP PRN ×2 (02:18→20:12)
[2018-10-18 07:39] LABS: Basophils % (A) 0 %; Eosinophils # (A) 0.2 k/uL (0-0.7); Eosinophils % (A) 1 %; HCT 38.9 % (34.0-46.0); HGB 12.2 gm/dL (11.4-16.0); Hypochromasia Slight; Lymphocytes % (A) 7 %; MCH 28.7 pg (25.0-35.0); MCHC 31.4 g/dL (31.0-37.0); MCV 91.4 fL (80.0-100.0); Mean Platelet Volume 6.3; Monocytes # (A) 0.9 k/uL (0-1.0); Monocytes % (A) 7 %; Neutrophils # (A) 12.1 k/uL (1.3-7.7); Neutrophils % (A) 84 %; Platelet Count 273 k/uL (150-450); RBC 4.25 m/uL (3.80-5.40); RDW 14.4 % (11.5-15.5); WBC 14.3 k/uL (3.8-10.6)
[2018-10-18 07:50] LABS: ALT 29 U/L (9-52); AST 29 U/L (14-36); Albumin 2.8 g/dL (3.5-5.0); Alkaline Phosphatase 65 U/L (38-126); Anion Gap 6 mmol/L; Blood Urea Nitrogen 7 mg/dL (7-17); Carbon Dioxide 23 mmol/L (22-30); Chloride 112 mmol/L (98-107); Glucose 107 mg/dL (74-99); Potassium 4.4 mmol/L (3.5-5.1); Sodium 141 mmol/L (137-145); Total Bilirubin 0.7 mg/dL (0.2-1.3); Total Protein 5.7 g/dL (6.3-8.2)
[2018-10-18] MEDS: ESCITALOPRAM 20 MG TAB PO SCH (07:51)
[2018-10-18] MEDS: PANTOPRAZOLE 40 MG/10 ML VIAL IV SCH (07:51)
[2018-10-18 08:03] LABS: Amylase 555 U/L (30-110); Lipase 2985 U/L (23-300)
--- NOTE | 2018-10-18 11:27 | P.PN ---
Subjective Progress Note Date: 10/18/18 Principal diagnosis: Acute severe pancreatitis Feels much better today. Lipase decreased to 2000 range. Afebrile. Abdominal pain improved. CT reported pancreatitis no evidence of biliary tree abnormalities. LFTs normal. Objective - Vital Signs Vital signs: Vital Signs Temp 96.1 F L 10/18/18 06:39 Pulse 82 10/18/18 06:39 Resp 14 10/18/18 06:39 BP 108/58 10/18/18 06:39 Pulse Ox 92 L 10/18/18 06:39 Intake & Output 10/17/18 10/18/18 10/18/18 18:59 06:59 18:59 Other: Voiding Method Toilet Toilet # Voids 0 1 # Bowel Movements 0 0 - Exam General appearance: The patient is alert, oriented, in no acute distress. HET: Head is normocephalic and atraumatic. Pupils are equal and reactive. Oropharynx is clear without lesions. Neck: Supple without lymphadenopathy. Trachea midline. Heart: S1 S2. Regular rate and rhythm. Lungs: No crackles or wheezes are heard. Abdomen: Soft, mild tenderness in the bilateral upper abdomen, nondistended with bowel sounds. No peritoneal signs. No palpable organomegaly or masses. Extremities: Normal skin color and turgor. No cyanosis, rash, ulceration, clubbing, or edema. Radial and pedal pulses are 2/4 bilaterally. Neurological: No focal deficits. Strength and sensation are grossly intact. - Labs CBC & Chem 7: 10/18/18 07:19 10/18/18 07:19 Labs: Abnormal Lab Results - Last 24 Hours (Table) 10/18/18 10/18/18 Range/Units 07:19 07:19 WBC 14.3 H (3.8-10.6) k/uL Neutrophils # 12.1 H (1.3-7.7) k/uL Chloride 112 H (98-107) mmol/L Creatinine 0.48 L (0.52-1.04) mg/dL Glucose 107 H (74-99) mg/dL Calcium 8.0 L (8.4-10.2) mg/dL Total Protein 5.7 L (6.3-8.2) g/dL Albumin 2.8 L (3.5-5.0) g/dL Amylase 555 H* (30-110) U/L Lipase 2985 H (23-300) U/L Assessment and Plan (1) Acute pancreatitis Narrative/Plan: Severe acute pancreatitis with clinical improvement. First episode etiology unclear. Current Visit: Yes Status: Acute Code(s): K85.90 - ACUTE PANCREATITIS WITHOUT NECROSIS OR INFECTION, UNSP SNOMED Code(s): 668336554 Plan: 1. CT abdomen and pelvis result reviewed by Dr. Joseph. IgG subclass 1-4. ENZO pending. CMV negative. 2. Continue IV hydration.. 3. GI prophylaxis Protonix 40 mg IV daily. Antiemetics. Will allow ice chips and popsicles Jell-O. 4. CBC amylase lipase in a.m. We'll continue to follow. Assessment and plan a care discussed with Dr. Joseph
--- NOTE | 2018-10-18 12:22 | P.PN ---
Subjective Progress Note Date: 10/18/18 This is a pleasant 53-year-old lady patient of Dr. Laureano for which she comes in from [place]. He is to establish a Dr. Laureano 11/17/2018. Patient was admitted to the emergency room secondary to abdominal pain, epigastric and left flank area for the past several hours. Pain started at 12:00 early this morning , accompanied by nausea, and vomiting, thereafter the abdominal pain started patient had no sick contacts, patient does not drink alcohol routinely, however she came from [place] first week of September, stayed there for 2 days. Patient was drinking alcohol beverages at that time, and was well when he came in. Patient felt weak when she came back from [place], however the abdominal pain started on the this morning. Patient denies any melena hematochezia, patient denies any history of previous gallbladder stones, no history of pancreatitis in the past. Patient was seen in the emergency room with evaluation significant for lipase over 20,000 liver function test shows normal alkaline phosphatase 123 AST slightly high at 38 ALT normal 40 to be early normal 0.4 triglyceride normal on 69 calcium of 8.2. Ultrasound of the abdomen suboptimal study, no gallbladder stones, negative positive for Stapleton sign, liver within normal limit , common bile duct 0.6 cm 10/18, abdominal pain is significantly better, some nausea no vomiting, no fever no melena hematochezia no bowel movement today. okay no fever no chills lipase level 3000 Clear liquid diet today. Objective - Vital Signs Vital signs: Vital Signs Temp 96.1 F L 10/18/18 06:39 Pulse 82 10/18/18 06:39 Resp 14 10/18/18 06:39 BP 108/58 10/18/18 06:39 Pulse Ox 92 L 10/18/18 06:39 Intake & Output 10/17/18 10/18/18 10/18/18 18:59 06:59 18:59 Other: Voiding Method Toilet Toilet # Voids 0 1 1 # Bowel Movements 0 0 - Constitutional General appearance: Present: cooperative, no acute distress, obese - EENT Eyes: Present: anicteric sclerae, EOMI, PERRLA, dentition normal ENT: Present: NA/AT, normal oropharynx - Neck Neck: Present: normal ROM - Respiratory Respiratory: bilateral: CTA, negative: diminished, dullness, rales, rhonchi, wheezing - Cardiovascular Rhythm: regular Heart sounds: normal: S1, S2 Abnormal Heart Sounds: Absent: systolic murmur, diastolic murmur, rub, S3 Gallop , S4 Gallop, click, other - Gastrointestinal General gastrointestinal: Present: soft, tenderness (The gastric left upper) Localized gastrointestinal: tender: RLQ, guarding: RLQ - Neurologic Neurologic: Present: CNII-XII intact - Musculoskeletal Musculoskeletal: Present: gait normal, strength equal bilaterally - Labs CBC & Chem 7: 10/18/18 07:19 10/18/18 07:19 Labs: Abnormal Lab Results - Last 24 Hours (Table) 10/18/18 10/18/18 Range/Units 07:19 07:19 WBC 14.3 H (3.8-10.6) k/uL Neutrophils # 12.1 H (1.3-7.7) k/uL Chloride 112 H (98-107) mmol/L Creatinine 0.48 L (0.52-1.04) mg/dL Glucose 107 H (74-99) mg/dL Calcium 8.0 L (8.4-10.2) mg/dL Total Protein 5.7 L (6.3-8.2) g/dL Albumin 2.8 L (3.5-5.0) g/dL Amylase 555 H* (30-110) U/L Lipase 2985 H (23-300) U/L Laboratory Results WBC 14.3 k/uL (3.8-10.6) H 10/18/18 07:19 RBC 4.25 m/uL (3.80-5.40) 10/18/18 07:19 Hgb 12.2 gm/dL (11.4-16.0) 10/18/18 07:19 Hct 38.9 % (34.0-46.0) 10/18/18 07:19 MCV 91.4 fL (80.0-100.0) 10/18/18 07:19 MCH 28.7 pg (25.0-35.0) 10/18/18 07:19 MCHC 31.4 g/dL (31.0-37.0) 10/18/18 07:19 RDW 14.4 % (11.5-15.5) 10/18/18 07:19 Plt Count 273 k/uL (150-450) 10/18/18 07:19 Neutrophils % 84 % 10/18/18 07:19 Lymphocytes % 7 % 10/18/18 07:19 Monocytes % 7 % 10/18/18 07:19 Eosinophils % 1 % 10/18/18 07:19 Basophils % 0 % 10/18/18 07:19 Neutrophils # 12.1 k/uL (1.3-7.7) H 10/18/18 07:19 Lymphocytes # 1.0 k/uL (1.0-4.8) 10/18/18 07:19 Monocytes # 0.9 k/uL (0-1.0) 10/18/18 07:19 Eosinophils # 0.2 k/uL (0-0.7) 10/18/18 07:19 Basophils # 0.0 k/uL (0-0.2) 10/18/18 07:19 Hypochromasia Slight 10/18/18 07:19 PT 10.2 sec (9.0-12.0) 10/17/18 04:47 INR 0.9 (<1.2) 10/17/18 04:47 APTT 22.4 sec (22.0-30.0) 10/17/18 04:47 D-Dimer 0.79 mg/L FEU (<0.60) H 10/17/18 04:47 Sodium 141 mmol/L (137-145) 10/18/18 07:19 Potassium 4.4 mmol/L (3.5-5.1) 10/18/18 07:19 Chloride 112 mmol/L (98-107) H 10/18/18 07:19 Carbon Dioxide 23 mmol/L (22-30) 10/18/18 07:19 Anion Gap 6 mmol/L 10/18/18 07:19 BUN 7 mg/dL (7-17) 10/18/18 07:19 Creatinine 0.48 mg/dL (0.52-1.04) L 10/18/18 07:19 Est GFR (CKD-EPI)AfAm >90 (>60 ml/min/1.73 sqM) 10/18/18 07:19 Est GFR (CKD-EPI)NonAf >90 (>60 ml/min/1.73 sqM) 10/18/18 07:19 Glucose 107 mg/dL (74-99) H 10/18/18 07:19 Calcium 8.0 mg/dL (8.4-10.2) L 10/18/18 07:19 Magnesium 1.8 mg/dL (1.6-2.3) 10/17/18 05:51 Total Bilirubin 0.7 mg/dL (0.2-1.3) 10/18/18 07:19 AST 29 U/L (14-36) 10/18/18 07:19 ALT 29 U/L (9-52) 10/18/18 07:19 Alkaline Phosphatase 65 U/L (38-126) 10/18/18 07:19 Total Creatine Kinase 75 U/L (30-135) 10/17/18 05:51 CK-MB (CK-2) 0.5 ng/mL (0.0-2.4) 10/17/18 05:51 CK-MB (CK-2) Rel Index 0.7 10/17/18 05:51 Troponin I <0.012 ng/mL (0.000-0.034) 10/17/18 05:51 NT-Pro-B Natriuret Pep 70 pg/mL 10/17/18 04:47 Total Protein 5.7 g/dL (6.3-8.2) L 10/18/18 07:19 Albumin 2.8 g/dL (3.5-5.0) L 10/18/18 07:19 Triglycerides 69 mg/dL (<150) 10/17/18 05:51 Cholesterol 156 mg/dL (<200) 10/17/18 05:51 LDL Cholesterol, Calc 94 mg/dL (0-99) 10/17/18 05:51 HDL Cholesterol 48 mg/dL (40-60) 10/17/18 05:51 Amylase 555 U/L (30-110) H* 10/18/18 07:19 Lipase 2985 U/L (23-300) H 10/18/18 07:19 CMV IgG Ab Non-Reactive (Non-Reactive) 10/17/18 05:51 CMV IgM Ab Non-Reactive (Non-Reactive) 10/17/18 05:51 Assessment and Plan Plan: 1. Acute pancreatitis, with first episode, no history of gallbladder stones to pass, common bile duct is not dilated, etiology could be finalized and spontaneous [id number] however passage of gallbladder stone cannot be ruled out. Patient is not on any statin, lipid panel is normal Patient was in consultation by Dr. Whitaker GI, CAT scan of the abdomen and pelvis to be done, follow-up lipase, and patient would be made nothing by mouth. Patient will be screened also for coxsackievirus as well as CMV virus for viral etiology of pancreatitis. Clear liquid diet started October 18 CMV titer negative 2. Obstructive sleep apnea on CPAP machine 3. Obesity, BMI 32 4. Mild elevation of liver function tests, possibly related to IBARRA patient would need hepatitis panel for completion of workup GI prophylaxis omeprazole IV DVT prophylaxis early ambulation Dysthymia on Celexa no changes made
[2018-10-18] MEDS: MORPHINE SULFATE 4 MG/ML SYRINGE IV PRN ×2 (16:10→20:12)
[2018-10-18 16:39] LABS: Hepatitis A Antibody IgM Non-Reactive (Non-Reactive); Hepatitis B Core IgM Non-Reactive (Non-Reactive)
[2018-10-18] MEDS: traZODone HCL 50 MG TAB PO PRN (22:40)
[2018-10-19] MEDS: MORPHINE SULFATE 4 MG/ML SYRINGE IV PRN ×3 (00:20→09:10)
[2018-10-19] MEDS: SODIUM CHLORIDE 0.9% 1,000 ML IV SCH ×2 (03:13→14:46)
[2018-10-19] MEDS: ONDANSETRON 4 MG/2 ML VIAL IVP PRN ×3 (03:13→19:21)
[2018-10-19 08:08] LABS: Basophils % (A) 0 %; Eosinophils # (A) 0.2 k/uL (0-0.7); Eosinophils % (A) 1 %; HGB 11.7 gm/dL (11.4-16.0); Lymphocytes # (A) 1.3 k/uL (1.0-4.8); Lymphocytes % (A) 8 %; MCH 28.6 pg (25.0-35.0); MCHC 31.6 g/dL (31.0-37.0); MCV 90.5 fL (80.0-100.0); Mean Platelet Volume 6.6; Monocytes # (A) 0.9 k/uL (0-1.0); Monocytes % (A) 5 %; Neutrophils # (A) 13.6 k/uL (1.3-7.7); Neutrophils % (A) 84 %; Platelet Count 259 k/uL (150-450); RBC 4.09 m/uL (3.80-5.40); RDW 14.4 % (11.5-15.5); WBC 16.2 k/uL (3.8-10.6)
[2018-10-19 08:27] LABS: ALT 25 U/L (9-52); AST 21 U/L (14-36); Albumin 2.6 g/dL (3.5-5.0); Alkaline Phosphatase 66 U/L (38-126); Amylase 141 U/L (30-110); Anion Gap 5 mmol/L; Blood Urea Nitrogen 7 mg/dL (7-17); Calcium 8.1 mg/dL (8.4-10.2); Carbon Dioxide 25 mmol/L (22-30); Chloride 108 mmol/L (98-107); Glucose 109 mg/dL (74-99); Lipase 374 U/L (23-300); Potassium 3.9 mmol/L (3.5-5.1); Sodium 138 mmol/L (137-145); Total Bilirubin 0.7 mg/dL (0.2-1.3); Total Protein 5.4 g/dL (6.3-8.2)
[2018-10-19] MEDS: ESCITALOPRAM 20 MG TAB PO SCH (09:10)
[2018-10-19] MEDS: PANTOPRAZOLE 40 MG/10 ML VIAL IV SCH (09:10)
[2018-10-19 10:46] LABS: IgG Subclass 4 10.6 mg/dL (3.0-175.0)
--- NOTE | 2018-10-19 12:28 | P.PN ---
Subjective This is a pleasant 53-year-old lady patient of Dr. Laureano for which she comes in from [place]. He is to establish a Dr. Laureano 11/17/2018. Patient was admitted to the emergency room secondary to abdominal pain, epigastric and left flank area for the past several hours. Pain started at 12:00 early this morning , accompanied by nausea, and vomiting, thereafter the abdominal pain started patient had no sick contacts, patient does not drink alcohol routinely, however she came from [place] first week of September, stayed there for 2 days. Patient was drinking alcohol beverages at that time, and was well when he came in. Patient felt weak when she came back from [place], however the abdominal pain started on the this morning. Patient denies any melena hematochezia, patient denies any history of previous gallbladder stones, no history of pancreatitis in the past. Patient was seen in the emergency room with evaluation significant for lipase over 20,000 liver function test shows normal alkaline phosphatase 123 AST slightly high at 38 ALT normal 40 to be early normal 0.4 triglyceride normal on 69 calcium of 8.2. Ultrasound of the abdomen suboptimal study, no gallbladder stones, negative positive for Stapleton sign, liver within normal limit , common bile duct 0.6 cm 10/18, abdominal pain is significantly better, some nausea no vomiting, no fever no melena hematochezia no bowel movement today. okay no fever no chills lipase level 3000 Clear liquid diet today. 10/19: Patient evaluated today, still having some abdominal pain, but reports is better. Denies any nausea or vomiting, is tolerating a clear liquid diet, advance to full liquids today. Amylase 141, lipase 374 down significantly from yesterday, hepatitis panel and ENZO are negative. Will discontinue Dilaudid and switch to oral [place] with morphine for severe pain. Objective - Vital Signs Vital signs: Vital Signs Temp 98.9 F 10/19/18 06:35 Pulse 79 10/19/18 06:35 Resp 16 10/19/18 06:35 BP 116/56 10/19/18 06:35 Pulse Ox 91 L 10/19/18 06:35 Intake & Output 10/18/18 10/19/18 10/19/18 18:59 06:59 18:59 Other: Voiding Method Toilet # Voids 1 2 - Exam - Constitutional General appearance: Present: cooperative, no acute distress, obese - EENT Eyes: Present: anicteric sclerae, EOMI, PERRLA, dentition normal ENT: Present: NA/AT, normal oropharynx - Neck Neck: Present: normal ROM - Respiratory Respiratory: bilateral: CTA, negative: diminished, dullness, rales, rhonchi, wheezing - Cardiovascular Rhythm: regular Heart sounds: normal: S1, S2 Abnormal Heart Sounds: Absent: systolic murmur, diastolic murmur, rub, S3 Gallop , S4 Gallop, click, other - Gastrointestinal General gastrointestinal: Present: soft, tenderness (The gastric left upper) Localized gastrointestinal: tender: RLQ, guarding: RLQ - Neurologic Neurologic: Present: CNII-XII intact - Musculoskeletal Musculoskeletal: Present: gait normal, strength equal bilaterally - Labs CBC & Chem 7: 10/19/18 07:46 10/19/18 07:46 Labs: Abnormal Lab Results - Last 24 Hours (Table) 10/19/18 10/19/18 Range/Units 07:46 07:46 WBC 16.2 H (3.8-10.6) k/uL Neutrophils # 13.6 H (1.3-7.7) k/uL Chloride 108 H (98-107) mmol/L Creatinine 0.49 L (0.52-1.04) mg/dL Glucose 109 H (74-99) mg/dL Calcium 8.1 L (8.4-10.2) mg/dL Total Protein 5.4 L (6.3-8.2) g/dL Albumin 2.6 L (3.5-5.0) g/dL Amylase 141 H (30-110) U/L Lipase 374 H (23-300) U/L Assessment and Plan Plan: 1. Acute pancreatitis, with first episode, no history of gallbladder stones to pass, common bile duct is not dilated, etiology could be finalized and spontaneous [id number] however passage of gallbladder stone cannot be ruled out. Patient is not on any statin, lipid panel is normal Patient was in consultation by Dr. Whitaker GI, CAT scan of the abdomen and pelvis to be done, follow-up lipase, and patient would be made nothing by mouth. Patient will be screened also for coxsackievirus as well as CMV virus for viral etiology of pancreatitis. Clear liquid diet started [place] 21 CMV titer negative 2. Obstructive sleep apnea on CPAP machine 3. Obesity, BMI 32 4. Mild elevation of liver function tests, possibly related to IBARRA patient would need hepatitis panel for completion of workup GI prophylaxis omeprazole IV DVT prophylaxis early ambulation Dysthymia on Celexa no changes made The above impression and plan of care have been discussed and directed by signing physician. Viry Knox nurse practitioner acting as scribe for signing physician.
[2018-10-19] MEDS: HYDROcodone/APAP 7.5-325MG 1 EACH TAB PO PRN ×2 (13:38→19:21)
--- NOTE | 2018-10-19 14:09 | CONS ---
CONSULTATION DATE OF DICTATION: October 19, 2018 The patient is a 53-year-old white female admitted to the hospital with acute severe pancreatitis. She presents with severe epigastric pain for the last 1 week duration. Noted to have elevated amylase and lipase consistent with acute pancreatitis. She was noted to have normal serum transaminases. Ultrasound of the abdomen and gallbladder did not show any evidence of gallstones and CBD was within normal limits. Amylase and lipase are gradually improving. She still complains of epigastric pain, able to tolerate ice chips, some nausea but no emesis. No fever, chills, or night sweats. PHYSICAL EXAMINATION: She appears comfortable in no apparent distress. Vital signs stable. Blood pressure 112/65, pulse rate 87, temperature 98.7. HEENT examination unremarkable. Conjunctivae pink. Sclerae anicteric. Oral cavity no lesions. NECK: No jugular venous distention or lymph node enlargement. Chest was clear to auscultation. HEART: Regular rate and rhythm. ABDOMEN: Soft. There was tenderness in the epigastric area. Bowel sounds are positive. Extremities: No pedal edema. Skin no rashes. NEUROLOGIC: Alert and oriented x3. No focal deficits. LABS: From today WBC 10.2, hemoglobin 11.7, platelets are normal. Amylase is 141 and lipase is 374. ALT, AST, T-bilirubin and alkaline phosphatase are within normal limits. ENZO is negative. Fasting triglycerides are 69. IMPRESSION: 1. Acute pancreatitis, first episode, etiology unclear. No history of gallstones. No history of alcoholism. ENZO as well as IgG4 levels are normal. Serum amylase and lipase are gradually improving and clinically patient is also improving. 2. Leukocytosis, probably related to acute pancreatitis. No evidence of . RECOMMENDATIONS: 1. Start with a clear liquid diet. 2. Continue with pain management. 3. Repeat labs in the morning and will follow her closely during the hospital stay. Thank you for this consultation. MMODL / IJN: [id number] /
[2018-10-19 15:00] LABS: Appearance,Urine Clear (Clear); Bilirubin,Urine Negative (Negative); Blood,Urine Negative (Negative); Color,Urine Yellow; Glucose,Urine (UA) Negative (Negative); Ketones,Urine 3+ (Negative); Leukocyte Esterase,Urine Negative (Negative); Nitrite,Urine Negative (Negative); PH, Urine 5.5 (5.0-8.0); Protein,Urine Trace (Negative); Specific Gravity,Urine 1.017 (1.001-1.035); Urobilinogen,Urine <2.0 mg/dL (<2.0)
[2018-10-20] MEDS: ONDANSETRON 4 MG/2 ML VIAL IVP PRN ×3 (00:55→18:54)
[2018-10-20] MEDS: traZODone HCL 50 MG TAB PO PRN ×2 (00:55→22:08)
[2018-10-20] MEDS: HYDROcodone/APAP 7.5-325MG 1 EACH TAB PO PRN ×4 (00:55→22:06)
[2018-10-20] MEDS: SODIUM CHLORIDE 0.9% 1,000 ML IV SCH ×2 (00:56→10:56)
[2018-10-20] MEDS: MORPHINE SULFATE 4 MG/ML SYRINGE IV PRN (05:47)
[2018-10-20 07:21] LABS: Basophils % (A) 0 %; Eosinophils # (A) 0.1 k/uL (0-0.7); Eosinophils % (A) 1 %; HCT 36.8 % (34.0-46.0); HGB 11.1 gm/dL (11.4-16.0); Lymphocytes # (A) 1.2 k/uL (1.0-4.8); Lymphocytes % (A) 7 %; MCH 27.1 pg (25.0-35.0); MCHC 30.3 g/dL (31.0-37.0); MCV 89.7 fL (80.0-100.0); Mean Platelet Volume 6.3; Monocytes # (A) 1.1 k/uL (0-1.0); Monocytes % (A) 6 %; Neutrophils # (A) 14.2 k/uL (1.3-7.7); Neutrophils % (A) 84 %; Platelet Count 308 k/uL (150-450); RDW 14.2 % (11.5-15.5); WBC 16.9 k/uL (3.8-10.6)
[2018-10-20 07:28] LABS: ALT 24 U/L (9-52); AST 20 U/L (14-36); Albumin 2.6 g/dL (3.5-5.0); Alkaline Phosphatase 86 U/L (38-126); Amylase 46 U/L (30-110); Anion Gap 5 mmol/L; Blood Urea Nitrogen 7 mg/dL (7-17); Calcium 8.3 mg/dL (8.4-10.2); Carbon Dioxide 29 mmol/L (22-30); Chloride 106 mmol/L (98-107); Glucose 95 mg/dL (74-99); Lipase 123 U/L (23-300); Potassium 3.9 mmol/L (3.5-5.1); Sodium 140 mmol/L (137-145); Total Bilirubin 0.8 mg/dL (0.2-1.3); Total Protein 5.5 g/dL (6.3-8.2)
[2018-10-20] MEDS: ESCITALOPRAM 20 MG TAB PO SCH (08:28)
[2018-10-20] MEDS: PANTOPRAZOLE 40 MG/10 ML VIAL IV SCH (08:29)
[2018-10-20] MEDS ORDERED: MORPHINE SULFATE 2 MG/ML SYRINGE IV PRN (11:34)
--- NOTE | 2018-10-20 13:41 | P.PN ---
Subjective This is a pleasant 53-year-old lady patient of Dr. Laureano for which she comes in from [place]. He is to establish a Dr. Laureano 11/17/2018. Patient was admitted to the emergency room secondary to abdominal pain, epigastric and left flank area for the past several hours. Pain started at 12:00 early this morning , accompanied by nausea, and vomiting, thereafter the abdominal pain started patient had no sick contacts, patient does not drink alcohol routinely, however she came from [place] first week of September, stayed there for 2 days. Patient was drinking alcohol beverages at that time, and was well when he came in. Patient felt weak when she came back from [place], however the abdominal pain started on the this morning. Patient denies any melena hematochezia, patient denies any history of previous gallbladder stones, no history of pancreatitis in the past. Patient was seen in the emergency room with evaluation significant for lipase over 20,000 liver function test shows normal alkaline phosphatase 123 AST slightly high at 38 ALT normal 40 to be early normal 0.4 triglyceride normal on 69 calcium of 8.2. Ultrasound of the abdomen suboptimal study, no gallbladder stones, negative positive for Stapleton sign, liver within normal limit , common bile duct 0.6 cm 10/18, abdominal pain is significantly better, some nausea no vomiting, no fever no melena hematochezia no bowel movement today. okay no fever no chills lipase level 3000 Clear liquid diet today. 10/19: Patient evaluated today, still having some abdominal pain, but reports is better. Denies any nausea or vomiting, is tolerating a clear liquid diet, advance to full liquids today. Amylase 141, lipase 374 down significantly from yesterday, hepatitis panel and ENZO are negative. Will discontinue Dilaudid and switch to oral [place] with morphine for severe pain. 10/20: Patient reports abdominal pain is better, but is still requiring morphine every 4 hours with [place]. She denies any nausea vomiting, she is tolerating a full liquid diet, does not want to advanced today. Will decrease morphine to 2 mg every 6 hours and increase [place] to every 4 hours. She was encouraged to ambulate in the halls today. Amylase 46, lipase 123. Objective - Vital Signs Vital signs: Vital Signs Temp 98.6 F 10/20/18 06:15 Pulse 76 10/20/18 06:15 Resp 18 10/20/18 06:15 BP 136/80 10/20/18 06:15 Pulse Ox 92 L 10/20/18 06:15 Intake & Output 10/19/18 10/20/18 10/20/18 18:59 06:59 18:59 Intake Total 1200 240 Balance 1200 240 Intake: Oral 1200 240 Other: # Voids 2 1 - Exam - Constitutional General appearance: Present: cooperative, no acute distress, obese - EENT Eyes: Present: anicteric sclerae, EOMI, PERRLA, dentition normal ENT: Present: NA/AT, normal oropharynx - Neck Neck: Present: normal ROM - Respiratory Respiratory: bilateral: CTA, negative: diminished, dullness, rales, rhonchi, wheezing - Cardiovascular Rhythm: regular Heart sounds: normal: S1, S2 Abnormal Heart Sounds: Absent: systolic murmur, diastolic murmur, rub, S3 Gallop , S4 Gallop, click, other - Gastrointestinal General gastrointestinal: Present: soft, tenderness (The gastric left upper) Localized gastrointestinal: tender: RLQ, guarding: RLQ - Neurologic Neurologic: Present: CNII-XII intact - Musculoskeletal Musculoskeletal: Present: gait normal, strength equal bilaterally - Labs CBC & Chem 7: 10/20/18 06:48 10/20/18 06:48 Labs: Abnormal Lab Results - Last 24 Hours (Table) 10/19/18 10/20/18 10/20/18 Range/Units 14:04 06:48 06:48 WBC 16.9 H (3.8-10.6) k/uL Hgb 11.1 L (11.4-16.0) gm/dL MCHC 30.3 L (31.0-37.0) g/dL Neutrophils # 14.2 H (1.3-7.7) k/uL Monocytes # 1.1 H (0-1.0) k/uL Calcium 8.3 L (8.4-10.2) mg/dL Total Protein 5.5 L (6.3-8.2) g/dL Albumin 2.6 L (3.5-5.0) g/dL Urine Protein Trace H (Negative) Urine Ketones 3+ H (Negative) Assessment and Plan Plan: 1. Acute pancreatitis, with first episode, no history of gallbladder stones to pass, common bile duct is not dilated, etiology could be finalized and spontaneous [id number] however passage of gallbladder stone cannot be ruled out. Patient is not on any statin, lipid panel is normal Patient was in consultation by Dr. Whitaker GI, CAT scan of the abdomen and pelvis to be done, follow-up lipase, and patient would be made nothing by mouth. Patient will be screened also for coxsackievirus as well as CMV virus for viral etiology of pancreatitis. Full liquid diet 2. Obstructive sleep apnea on CPAP machine 3. Obesity, BMI 32 4. Mild elevation of liver function tests, possibly related to IBARRA patient would need hepatitis panel for completion of workup GI prophylaxis omeprazole IV DVT prophylaxis early ambulation Dysthymia on Celexa no changes made The above impression and plan of care have been discussed and directed by signing physician. Viry Knox nurse practitioner acting as scribe for signing physician.
--- NOTE | 2018-10-20 14:15 | PN ---
PROGRESS NOTE DATE OF SERVICE: October 20, 2018 Patient is a 53-year-old pleasant white female admitted to hospital with acute pancreatitis. She presented with abdominal pain, nausea, vomiting, and elevated amylase and lipase. The etiology of pancreatitis is unclear. Ultrasound showed no gallstones and she has no history of alcohol use. She is doing better. Still has some epigastric discomfort. Still nauseated. On a clear liquid diet, tolerating well. No fever, chills. PHYSICAL EXAMINATION: Blood pressure 126/76, pulse 76, temperature 98.6. HEENT examination unremarkable. Conjunctivae pink. Sclerae anicteric. Oral cavity no lesions. Neck: No jugular venous distention or lymph node enlargement. Chest was clear to auscultation. HEART: Regular rate and rhythm. ABDOMEN: Soft. There was tenderness in the epigastric area. Bowel sounds are positive. EXTREMITIES: No pedal edema. Skin no rashes. NEUROLOGIC: Alert and oriented x3. No focal deficits. LABS: WBC 16.9, hemoglobin 11.1, platelets normal. AST, ALT, total bilirubin and alkaline phosphatase are all within normal limits. Amylase and lipase normalized at 46 and 123. IMPRESSION: 1. Acute pancreatitis, first episode. Unclear etiology, gradually improving. Still has some epigastric pain. 2. Persistent leukocytosis, probably related to inflammation from acute pancreatitis. RECOMMENDATION: 1. Continue with clear liquids today. 2. Decrease pain medications as tolerated. 3. Repeat CBC in the morning. 4. If her labs improve tomorrow, we can advance diet as tolerated and hopefully she can be discharged home in 1-2 days. Thank you for this consultation. MMODL / IJN: [id number] /
[2018-10-21] MEDS: HYDROcodone/APAP 7.5-325MG 1 EACH TAB PO PRN ×5 (04:52→21:44)
[2018-10-21] MEDS: ONDANSETRON 4 MG/2 ML VIAL IVP PRN ×2 (04:52→21:44)
[2018-10-21] MEDS: PANTOPRAZOLE 40 MG/10 ML VIAL IV SCH (08:25)
[2018-10-21] MEDS: ESCITALOPRAM 20 MG TAB PO SCH (08:25)
[2018-10-21 11:42] LABS: HCT 34.1 % (34.0-46.0); HGB 10.8 gm/dL (11.4-16.0); MCH 28.3 pg (25.0-35.0); MCHC 31.7 g/dL (31.0-37.0); MCV 89.4 fL (80.0-100.0); Mean Platelet Volume 6.7; Platelet Count 360 k/uL (150-450); RBC 3.81 m/uL (3.80-5.40); RDW 14.3 % (11.5-15.5); WBC 14.5 k/uL (3.8-10.6)
[2018-10-21 11:54] LABS: ALT 26 U/L (9-52); AST 24 U/L (14-36); Albumin 2.7 g/dL (3.5-5.0); Alkaline Phosphatase 103 U/L (38-126); Amylase 31 U/L (30-110); Anion Gap 6 mmol/L; Blood Urea Nitrogen 7 mg/dL (7-17); Calcium 8.5 mg/dL (8.4-10.2); Carbon Dioxide 32 mmol/L (22-30); Chloride 102 mmol/L (98-107); Glucose 102 mg/dL (74-99); Lipase 122 U/L (23-300); Potassium 4.1 mmol/L (3.5-5.1); Sodium 140 mmol/L (137-145); Total Bilirubin 0.8 mg/dL (0.2-1.3); Total Protein 5.5 g/dL (6.3-8.2)
--- NOTE | 2018-10-21 11:58 | PN ---
PROGRESS NOTE DATE OF SERVICE: 10/21/2018 Patient is a 53-year-old pleasant white female admitted to the hospital with acute severe pancreatitis. She is gradually improving. Her abdominal pain is improving. Nausea is better. On a full liquid diet, tolerating well. She states that she had a low-grade fever last time, however, it was not documented. This morning, temperature was 98.4. PHYSICAL EXAMINATION: On physical examination, appears comfortable, in no apparent distress. Vital signs are stable. Temperature 97.7, blood pressure 120/75, pulse rate 78. HEENT examination unremarkable. Conjunctivae pink. Sclerae anicteric. Oral cavity, no lesions. NECK; No JVD or lymph node enlargement. CHEST: Clear to auscultation. HEART: Regular rate and rhythm. ABDOMEN: Soft. There was still mild tenderness noted, but much improved since yesterday. The rest of the abdomen was benign. EXTREMITIES: No pedal edema. SKIN: No rashes. NEURO: Alert and oriented x3. No focal deficits. LABS: No labs are available from today. IMPRESSION: 1. Acute severe pancreatitis, gradually improving. 2. Leukocytosis. Repeat CBC still pending from today. RECOMMENDATIONS: 1. Continue to advance diet as tolerated. 2. Ambulate patient. 3. If her labs have improved and leukocytosis resolved, she can be discharged home in 1 to 2 days with an outpatient followup. Thank you for this consultation. ZACH / LAKSHMI: [id number] /
--- NOTE | 2018-10-21 14:33 | P.PN ---
Subjective Progress Note Date: 10/21/18 This is a pleasant 53-year-old lady patient of Dr. Laureano for which she comes in from [place]. He is to establish a Dr. Laureano 11/17/2018. Patient was admitted to the emergency room secondary to abdominal pain, epigastric and left flank area for the past several hours. Pain started at 12:00 early this morning , accompanied by nausea, and vomiting, thereafter the abdominal pain started patient had no sick contacts, patient does not drink alcohol routinely, however she came from [place] first week of September, stayed there for 2 days. Patient was drinking alcohol beverages at that time, and was well when he came in. Patient felt weak when she came back from [place], however the abdominal pain started on the this morning. Patient denies any melena hematochezia, patient denies any history of previous gallbladder stones, no history of pancreatitis in the past. Patient was seen in the emergency room with evaluation significant for lipase over 20,000 liver function test shows normal alkaline phosphatase 123 AST slightly high at 38 ALT normal 40 to be early normal 0.4 triglyceride normal on 69 calcium of 8.2. Ultrasound of the abdomen suboptimal study, no gallbladder stones, negative positive for Stapleton sign, liver within normal limit , common bile duct 0.6 cm 10/18, abdominal pain is significantly better, some nausea no vomiting, no fever no melena hematochezia no bowel movement today. okay no fever no chills lipase level 3000 Clear liquid diet today. 10/19: Patient evaluated today, still having some abdominal pain, but reports is better. Denies any nausea or vomiting, is tolerating a clear liquid diet, advance to full liquids today. Amylase 141, lipase 374 down significantly from yesterday, hepatitis panel and ENZO are negative. Will discontinue Dilaudid and switch to oral [place] with morphine for severe pain. 10/20: Patient reports abdominal pain is better, but is still requiring morphine every 4 hours with [place]. She denies any nausea vomiting, she is tolerating a full liquid diet, does not want to advanced today. Will decrease morphine to 2 mg every 6 hours and increase [place] to every 4 hours. She was encouraged to ambulate in the halls today. Amylase 46, lipase 123. patient states abdominal pain is better but continues to take [place] every 3- 4 hours with morphine intermittently. Patient would like to try advancing her diet. Since leukocytosis is still elevated would like to get a repeat CT to rule out necrotizing pancreatitis. Patient had a low-grade fever last night with night sweats. We will advance to low-fat diet continue [place] at the current dose ROS Constitutional: Denies chills, endorses fever, Denies lethargy, Denies malaise, Denies poor appetite, Denies weakness, Denies weight loss Eyes: denies decreased vision, denies diplopia, denies discharge, denies pain Ears: deny: decreased hearing Ears, nose, mouth and throat: Denies dental pain, Denies headache, Denies nasal discharge, Denies nose pain Cardiovascular: Denies chest pain, Denies decreased exercise tolerance, Denies edema, Denies high blood pressure, Denies irregular heart beat, Denies palpitations, Denies paroxysmal nocturnal dyspnea, Denies rapid heart beat, Denies shortness of breath Respiratory: Denies congestion, Denies cough, Denies cough with sputum, Denies dyspnea, Denies home oxygen, Denies wheezing Gastrointestinal: endorses abdominal pain, Denies change in bowel habits, Denies coffee ground emesis, Denies early satiety, Denies excessive gas, Denies heartburn, Denies hematemesis, Denies hematochezia, Denies loss of appetite, Denies nausea, Denies vomiting Neurological: Denies balance difficulties, Denies change in speech, Denies double vision, Denies gait dysfunction, Denies loss of vision, Denies motor disturbance, Denies numbness, Denies paralysis, Denies paresthesias, Denies seizures Objective - Vital Signs Vital signs: Vital Signs Temp 97.7 F 10/21/18 08:23 Pulse 70 10/21/18 08:23 Resp 18 10/21/18 08:23 BP 120/75 10/21/18 08:23 Pulse Ox 91 L 10/21/18 08:23 Intake & Output 10/20/18 10/21/18 10/21/18 18:59 06:59 18:59 Intake Total 240 100 Balance 240 100 Weight 97.522 kg Intake: Oral 240 100 Other: Voiding Method Toilet # Voids 2 1 - Exam - Exam - Constitutional General appearance: Present: cooperative, no acute distress, obese - EENT Eyes: Present: anicteric sclerae, EOMI, PERRLA, dentition normal ENT: Present: NA/AT, normal oropharynx - Neck Neck: Present: normal ROM - Respiratory Respiratory: bilateral: CTA, negative: diminished, dullness, rales, rhonchi, wheezing - Cardiovascular Rhythm: regular Heart sounds: normal: S1, S2 Abnormal Heart Sounds: Absent: systolic murmur, diastolic murmur, rub, S3 Gallop , S4 Gallop, click, other - Gastrointestinal General gastrointestinal: Present: soft, tenderness (The gastric left upper) Localized gastrointestinal: tender: RLQ, guarding: RLQ - Neurologic Neurologic: Present: CNII-XII intact - Musculoskeletal Musculoskeletal: Present: gait normal, strength equal bilaterally - Labs CBC & Chem 7: 10/21/18 10:58 10/21/18 10:58 Labs: Abnormal Lab Results - Last 24 Hours (Table) 10/21/18 10/21/18 Range/Units 10:58 10:58 WBC 14.5 H (3.8-10.6) k/uL Hgb 10.8 L (11.4-16.0) gm/dL Carbon Dioxide 32 H (22-30) mmol/L Glucose 102 H (74-99) mg/dL Total Protein 5.5 L (6.3-8.2) g/dL Albumin 2.7 L (3.5-5.0) g/dL Assessment and Plan Plan: 1. Acute pancreatitis, with first episode, no history of gallbladder stones to pass, common bile duct is not dilated, etiology could be finalized and spontaneous [id number] however passage of gallbladder stone cannot be ruled out. Patient is not on any statin, lipid panel is normal Patient was in consultation by Dr. Whitaker GI, CAT scan of the abdomen and pelvis beat ordered. Advance diet as tolerated continue fluids. Lipase normalized. Pain control with [place] and morphine no cause identified for pancreatitis 2. Obstructive sleep apnea on CPAP machine 3. Obesity, BMI 32 4. Mild elevation of liver function tests, possibly related to IBARRA patient would need hepatitis panel for completion of workup GI prophylaxis omeprazole IV DVT prophylaxis early ambulation Dysthymia on Celexa no changes made
[2018-10-21] MEDS: IOPAMIDOL-300 CONTRAST 30 ML VIAL (ORAL USE) PO PRN ×2 (14:59→15:55)
--- NOTE | 2018-10-21 16:55 | CT ---
EXAMINATION TYPE: CT abdomen pelvis w con DATE OF EXAM: 10/21/2018 COMPARISON: 10/17/2018 HISTORY: 53-year-old female Generalized abdominal pain. TECHNIQUE: Contiguous axial scanning of the abdomen and pelvis following administration of 100 ml Iso gerry 300 IV contrast. Delayed images through the kidneys and coronal/sagittal reconstructions perform ed. CT DLP: 1791.4 mGycm Automated exposure control for dose reduction was used. FINDINGS: Heart normal size without pericardial effusion. [id number] effusions with adjacent atelectasis . Liver enlarged measuring 20.8 cm. No focal liver lesion. Gallbladder mildly hydropic measuring 4.1 cm wide likely due to fasting state. No surrounding inflamm ation. No biliary ductal dilatation. Portal venous system appears grossly patent though the phase of imaging causes some limitation in assessment. No arterial pseudoaneurysm is identified. Adrenal glands, kidneys, spleen appear within normal limits. There is adequate enhancement of the pancreatic parenchyma with moderate to severe surrounding fat st randing and edematous change, 10/17/2018. No focal fluid collection has formed at this time. Scattered mildly enlarged mesenteric lymph nodes measuring up to 9 mm likely reactive. No dilated small bowel, free fluid, or free air. Mild to moderate bilateral flank edema is noted. Oral contrast has progressed to the mid transverse colon. Mild to moderate stool burden. No pericolon ic inflammatory change. Bladder not distended. Pelvic phleboliths. Uterus and ovaries are visualized. Trace pelvic free fluid . No pelvic lymphadenopathy. Bones: Mild degenerative changes of the hips and left SI joint. Superior endplate Schmorl's node and endplate deformity of L1 has a chronic appearance. IMPRESSION: 1. CONTINUED ACUTE INTERSTITIAL PANCREATITIS NOW WITH INCREASED, MODERATE TO SEVERE SURROUNDING INFLA MMATORY CHANGES. NO DEVITALIZATION OF THE PANCREATIC PARENCHYMA TO SUGGEST NECROSIS AND NO FOCAL FLUI D COLLECTION FORMATION AT THIS TIME. FOLLOW-UP RECOMMENDED. 2. MILD TO MODERATE BILATERAL FLANK EDEMA AND NEW SMALL TO MODERATE PLEURAL EFFUSIONS. SOME SCATTERED MILDLY ENLARGED MESENTERIC LYMPH NODES MEASURING UP TO 9 MM ARE LIKELY REACTIVE. 3. HEPATOMEGALY (20.8 CM).
[2018-10-21] MEDS: traZODone HCL 50 MG TAB PO PRN (21:44)
[2018-10-22 00:34] VITALS: RESP 20; TEMP 98.2
[2018-10-22] MEDS: HYDROcodone/APAP 7.5-325MG 1 EACH TAB PO PRN ×3 (03:17→12:49)
[2018-10-22 06:31] VITALS: BP 112/74; PULSE 69
[2018-10-22] MEDS: ESCITALOPRAM 20 MG TAB PO SCH (07:41)
[2018-10-22] MEDS: PANTOPRAZOLE 40 MG/10 ML VIAL IV SCH (07:41)
[2018-10-22 10:36] LABS: Basophils % (A) 0 %; Eosinophils # (A) 0.3 k/uL (0-0.7); Eosinophils % (A) 2 %; HCT 38.5 % (34.0-46.0); HGB 12.3 gm/dL (11.4-16.0); Lymphocytes # (A) 1.3 k/uL (1.0-4.8); Lymphocytes % (A) 10 %; MCHC 32.1 g/dL (31.0-37.0); MCV 90.3 fL (80.0-100.0); Mean Platelet Volume 6.4; Monocytes % (A) 7 %; Neutrophils # (A) 10.9 k/uL (1.3-7.7); Neutrophils % (A) 80 %; Platelet Count 361 k/uL (150-450); RBC 4.26 m/uL (3.80-5.40); RDW 14.1 % (11.5-15.5); WBC 13.7 k/uL (3.8-10.6)
[2018-10-22 10:55] LABS: ALT 31 U/L (9-52); AST 32 U/L (14-36); Albumin 2.9 g/dL (3.5-5.0); Alkaline Phosphatase 127 U/L (38-126); Anion Gap 6 mmol/L; Blood Urea Nitrogen 6 mg/dL (7-17); Calcium 8.5 mg/dL (8.4-10.2); Carbon Dioxide 35 mmol/L (22-30); Chloride 100 mmol/L (98-107); Glucose 103 mg/dL (74-99); Potassium 3.8 mmol/L (3.5-5.1); Sodium 141 mmol/L (137-145); Total Bilirubin 0.8 mg/dL (0.2-1.3); Total Protein 6.1 g/dL (6.3-8.2)
--- NOTE | 2018-10-22 13:27 | PN ---
PROGRESS NOTE Patient is a 50-year-old pleasant white female admitted to hospital with acute pancreatitis. She is gradually improving. This morning she states that her abdominal pain has improved. She is taking Dime Box every 5 hours. No nausea, no vomiting. Tolerating liquids and tolerating low-fat diet reasonably well. She still has some discomfort in the epigastric area. Last night she did have a repeat CT scan of the abdomen and pelvis to rule out necrotizing pancreatitis. The CT of the abdomen did show continued acute interstitial pancreatitis which was slightly increased from the prior CT scan, but no evidence of necrosis or focal fluid collections. Moderate bilateral pleural effusions also seen. PHYSICAL EXAMINATION: She appears comfortable, no apparent distress. Vital signs stable. Blood pressure 132/76, pulse is 75, temperature 98.2. HEENT examination unremarkable. Conjunctivae pink. Sclerae anicteric. Oral cavity no lesions. No JVD or lymph node enlargement. Chest was clear to auscultation. Heart revealed regular rate and rhythm. Abdomen is soft. Mild tenderness in the epigastric area. Bowel sounds are positive. No organomegaly. Extremities: No pedal edema or skin rashes. Neuro: Alert and oriented x3. No focal deficits. LABS: From today are still pending. Yesterday the white count was 14.9. IMPRESSION: Acute moderate to severe pancreatitis, which is gradually improving. Repeat CT scan done last night showed interstitial pancreatitis. No evidence of necrotizing pancreatitis or focal fluid collection. The patient has been getting pain medications every 5 hours, but overall she is gradually improving. RECOMMENDATIONS: 1. Repeat labs from today are still pending. We will await the results. 2. Continue with low-fat diet. 3. Increase ambulation. 4. Discussed with the patient the CT scan findings. 5. If white count is normal, she can be discharged home today or tomorrow with outpatient follow up in a week. Thank you for this consultation. MMODL / IJN: [id number] /
--- NOTE | 2018-10-22 15:10 | P.DS ---
Providers Date of admission: 10/17/18 08:31 Attending physician: Dahiana Rodriguez Consults: 10/17/18 08:29 Consult Physician Urgent Consulting Provider: Radhika Nava Consult Reason/Comments: acute pancreatitis Do you want consulting provider notified?: Yes Primary care physician: Vera Laureano [facility] Course: This is a pleasant 53-year-old lady patient of Dr. Laureano for which she comes in from [place]. He is to establish a Dr. Laureano 11/17/2018. Patient was admitted to the emergency room secondary to abdominal pain, epigastric and left flank area for the past several hours. Pain started at 12:00 early this morning , accompanied by nausea, and vomiting, thereafter the abdominal pain started patient had no sick contacts, patient does not drink alcohol routinely, however she came from [place] first week of September, stayed there for 2 days. Patient was drinking alcohol beverages at that time, and was well when he came in. Patient felt weak when she came back from [place], however the abdominal pain started on the this morning. Patient denies any melena hematochezia, patient denies any history of previous gallbladder stones, no history of pancreatitis in the past. Patient was seen in the emergency room with evaluation significant for lipase over 20,000 liver function test shows normal alkaline phosphatase 123 AST slightly high at 38 ALT normal 40 to be early normal 0.4 triglyceride normal on 69 calcium of 8.2. Ultrasound of the abdomen suboptimal study, no gallbladder stones, negative positive for Stapleton sign, liver within normal limit , common bile duct 0.6 cm 10/18, abdominal pain is significantly better, some nausea no vomiting, no fever no melena hematochezia no bowel movement today. okay no fever no chills lipase level 3000 Clear liquid diet today. 10/19: Patient evaluated today, still having some abdominal pain, but reports is better. Denies any nausea or vomiting, is tolerating a clear liquid diet, advance to full liquids today. Amylase 141, lipase 374 down significantly from yesterday, hepatitis panel and ENZO are negative. Will discontinue Dilaudid and switch to oral [place] with morphine for severe pain. 10/20: Patient reports abdominal pain is better, but is still requiring morphine every 4 hours with [place]. She denies any nausea vomiting, she is tolerating a full liquid diet, does not want to advanced today. Will decrease morphine to 2 mg every 6 hours and increase [place] to every 4 hours. She was encouraged to ambulate in the halls today. Amylase 46, lipase 123. /24 patient states abdominal pain is better but continues to take [place] every 3- 4 hours with morphine intermittently. Patient would like to try advancing her diet. Since leukocytosis is still elevated would like to get a repeat CT to rule out necrotizing pancreatitis. Patient had a low-grade fever last night with night sweats. We will advance to low-fat diet continue [place] at the current dose 10/22 patient examined at bedside is able to mobilize without any difficulty continuous [address] [place] [address] abdomen assessed suggestive of severe inflammation of the pancreas but no necrotic pancreas or abscesses seen no fluid collection seen. Patient is tolerating low-fat diet. would like to be discharged home with follow-up with Dr. Bentley PINEDA Constitutional: Denies chills, Denies fever, Denies lethargy, Denies malaise, Denies poor appetite, Denies weakness, Denies weight loss Cardiovascular: Denies chest pain, Denies decreased exercise tolerance, Denies edema, Denies high blood pressure, Denies irregular heart beat, Denies palpitations, Denies paroxysmal nocturnal dyspnea, Denies rapid heart beat, Denies shortness of breath Respiratory: Denies congestion, Denies cough, Denies cough with sputum, Denies dyspnea, Denies home oxygen, Denies wheezing Gastrointestinal: Endorses abdominal pain, Denies change in bowel habits, Denies coffee ground emesis, Denies early satiety, Denies excessive gas, Denies heartburn, Denies hematemesis, Denies hematochezia, Denies loss of appetite, Denies nausea, Denies vomiting Neurological: Denies balance difficulties, Denies change in speech, Denies double vision, Denies gait dysfunction, Denies loss of vision, Denies motor disturbance, Denies numbness, Denies paralysis, Denies paresthesias, Denies seizures Endocrine: Denies excessive sweating, Denies excessive thirst, Denies high blood sugars, Denies palpitations Discharge diagnosis 1. Acute pancreatitis, unknown etiology 2. Obstructive sleep apnea on CPAP machine 3. Obesity, BMI 32 4. Mild elevation of liver function tests, possibly related to IBARRA Position home with self-care CC a copy of discharge to Dr. Laureano Patient Condition at Discharge: Fair Plan - Discharge Summary Discharge Rx Participant: No New Discharge Prescriptions: New HYDROcodone/APAP 5-325MG [[place] 5] 1 each PO Q8HR PRN #9 tab PRN Reason: Pain Continue Turmeric Root Extract [Turmeric] 500 mg PO DAILY Magnesium 200 mg PO DAILY traZODone HCL 50 mg PO HS PRN PRN Reason: SLEEP Escitalopram [Lexapro] 20 mg PO DAILY [place]-3 Fatty Acids/Fish Oil [Fish Oil 1,000 mg Softgel] 1 tab PO DAILY Discharge Medication List Escitalopram [Lexapro] 20 mg PO DAILY 10/17/18 [History] Magnesium 200 mg PO DAILY 10/17/18 [History] [place]-3 Fatty Acids/Fish Oil [Fish Oil 1,000 mg Softgel] 1 tab PO DAILY [History] Turmeric Root Extract [Turmeric] 500 mg PO DAILY 10/17/18 [History] traZODone HCL 50 mg PO HS PRN 10/17/18 [History] HYDROcodone/APAP 5-325MG [[place] 5] 1 each PO Q8HR PRN #9 tab 10/22/18 [Rx] Follow up Appointment(s)/Referral(s): Vera Larueano MD [Primary Care Provider] - 1-2 days Radhika Nava MD [STAFF PHYSICIAN] - 1 Week Patient Instructions/Handouts: Pancreatitis (DC) Discharge Disposition: HOME SELF-CARE
== END 2018-10-22 14:12 | disposition home or self-care (01) | DRG 439 ==
LOC: EC 04:33 → 4MS4W 08:31
PROVIDERS: ADMIT Family Medicine; ATTEND Family Medicine
DX: K85.90 Acute pancreatitis without necrosis or infection, unspecified (principal); J90 Pleural effusion, not elsewhere classified; K75.81 Nonalcoholic steatohepatitis (NASH); R13.10 Dysphagia, unspecified; Z23 Encounter for immunization; G47.33 Obstructive sleep apnea (adult) (pediatric); F34.1 Dysthymic disorder; K21.9 Gastro-esophageal reflux disease without esophagitis; M19.90 Unspecified osteoarthritis, unspecified site; E66.9 Obesity, unspecified; Z68.32 Body mass index [BMI] 32.0-32.9, adult; Z79.899 Other long term (current) drug therapy; Z99.89 Dependence on other enabling machines and devices; Z87.01 Personal history of pneumonia (recurrent); Z90.49 Acquired absence of other specified parts of digestive tract; Z88.5 Allergy status to narcotic agent; Z81.8 Family history of other mental and behavioral disorders; Z82.61 Family history of arthritis
CPT/HCPCS: 36415; 71046; 74177; 76705; 80053; 80061; 80074; 81003; 82150; 82550; 82553; 82787; 83690; 83735; 83880; 84484; 85025; 85027; 85379; 85610; 85730; 86038; 86644; 86645; 86658; 93005; 96361; 96374; 96375; 96376; 99285

== ENCOUNTER → 2018-10-31 | Outpatient (CLI) | payer BC ==
--- NOTE | 2018-11-01 11:44 | ECHOF ---
Referral Reason:Pericardial effusion I31.3 MEASUREMENTS -------- HEIGHT: 170.2 cm WEIGHT: 98.0 kg BP: 159/91 RVIDd: 3.1 cm (< 3.3) IVSd: 1.1 cm (0.6 - 1.1) LVIDd: 4.4 cm (3.9 - 5.3) LVPWd: 1.1 cm (0.6 - 1.1) IVSs: 1.5 cm LVIDs: 2.9 cm LVPWs: 1.5 cm LA Diam: 3.3 cm (2.7 - 3.8) LAESV Index (A-L): 21.18 ml/m Ao Diam: 2.7 cm (2.0 - 3.7) AV Cusp: 2.1 cm (1.5 - 2.6) MV EXCURSION: 19.132 mm (> 18.000) MV EF SLOPE: 117 mm/s (70 - 150) EPSS: 0.2 cm MV E Wil: 0.99 m/s MV DecT: 257 ms MV A Wil: 0.78 m/s MV E/A Ratio: 1.27 RAP: 5.00 mmHg RVSP: 22.99 mmHg FINDINGS -------- Sinus rhythm. This was a technically good study. The left ventricular size is normal. There is borderline concentric left ventricular hypertrophy. Overall left ventricular systolic function is normal with, an EF between 60 - 65 %. The right ventricle is normal in size. Normal LA size by volume 22+/-6 ml/m2. The right atrium is normal in size. There is mild aortic valve sclerosis. There is trace mitral regurgitation. Mild tricuspid regurgitation present. Right ventricular systolic pressure is normal at < 35 mmHg. Trace/mild (physiologic) pulmonic regurgitation. The aortic root size is normal. Normal inferior vena cava with normal inspiratory collapse consistent with estimated right atrial pre ssure of 5 mmHg. There is no pericardial effusion. CONCLUSIONS -------- 1. Sinus rhythm. 2. This was a technically good study. 3. The left ventricular size is normal. 4. There is borderline concentric left ventricular hypertrophy. 5. Overall left ventricular systolic function is normal with, an EF between 60 - 65 %. 6. The right ventricle is normal in size. 7. Normal LA size by volume 22+/-6 ml/m2. 8. The right atrium is normal in size. 9. There is mild aortic valve sclerosis. 10. There is trace mitral regurgitation. 11. Mild tricuspid regurgitation present. 12. Right ventricular systolic pressure is normal at < 35 mmHg. 13. Trace/mild (physiologic) pulmonic regurgitation. 14. The aortic root size is normal. 15. Normal inferior vena cava with normal inspiratory collapse consistent with estimated right atrial pressure of 5 mmHg. 16. There is no pericardial effusion. SHREDDING FLOOR EQUIPMENT OPERATOR: Mimi Bustamante RDCS
== END ==
LOC: RADECHMAIN 14:51
PROVIDERS: ATTEND Family Medicine
DX: I07.1 Rheumatic tricuspid insufficiency (principal); I37.1 Nonrheumatic pulmonary valve insufficiency
CPT/HCPCS: 93306

== ENCOUNTER → 2018-12-16 | Outpatient (CLI) | payer BC ==
[2018-12-16 14:35] LABS: HCT 41.9 % (34.0-46.0); HGB 13.5 gm/dL (11.4-16.0); MCH 28.6 pg (25.0-35.0); MCHC 32.3 g/dL (31.0-37.0); MCV 88.5 fL (80.0-100.0); Mean Platelet Volume 6.4; Platelet Count 281 k/uL (150-450); RBC 4.73 m/uL (3.80-5.40); WBC 5.5 k/uL (3.8-10.6)
[2018-12-16 14:46] LABS: ALT 27 U/L (9-52); AST 24 U/L (14-36); Alkaline Phosphatase 78 U/L (38-126); Anion Gap 6 mmol/L; Blood Urea Nitrogen 11 mg/dL (7-17); Calcium 9.4 mg/dL (8.4-10.2); Carbon Dioxide 29 mmol/L (22-30); Chloride 101 mmol/L (98-107); Glucose 85 mg/dL (74-99); Potassium 4.9 mmol/L (3.5-5.1); Sodium 136 mmol/L (137-145); Total Bilirubin 0.6 mg/dL (0.2-1.3)
--- NOTE | 2018-12-19 00:45 | MR ---
MR scan of the abdomen. History pancreatitis. Comparison CT scan 10/21/2018. FINDINGS: Multiplanar multi echo imaging of the abdomen was performed without and with IV contrast. The contras t was gadolinium 10 milliliters. FINDINGS: There is a 1 cm cyst in the posterior right lobe of the liver. The bile ducts are not dilated. Gallbl adder appears normal. Pancreas has normal signal pattern. Pancreatic duct appears normal. There is no evidence of a pancreatic mass. Spleen appears normal. There are very small bilateral pleural effusio ns. There is no pericardial effusion. There is no adrenal mass. Kidneys show satisfactory contrast opacification. There is no hydronephrosi s. There is no retroperitoneal adenopathy. There is no sign of ascites. There is normal contrast enha ncement of the portal vein and splenic and superior mesenteric vein. IMPRESSION: Normal pancreas. The pleural effusions evident on the old CT scan are essentially clear. There is jamey aring of the fluid around the pancreas compared to old exam. No evidence of pancreatitis.
== END | disposition home or self-care (01) ==
LOC: RADMRIMAIN 12:31
PROVIDERS: ATTEND Internal Medicine
DX: Z09 Encounter for follow-up examination after completed treatment for conditions other than malignant neoplasm (principal); Z87.19 Personal history of other diseases of the digestive system
CPT/HCPCS: 80053; 85027; 74183; A9585

== ENCOUNTER → 2019-04-05 | Outpatient (CLI) | payer BC ==
[2019-04-05 08:59] LABS: Basophils # (A) 0.1 k/uL (0-0.2); Basophils % (A) 1 %; Eosinophils # (A) 0.1 k/uL (0-0.7); Eosinophils % (A) 2 %; HCT 42.7 % (34.0-46.0); HGB 13.6 gm/dL (11.4-16.0); Lymphocytes # (A) 1.8 k/uL (1.0-4.8); Lymphocytes % (A) 31 %; MCH 28.4 pg (25.0-35.0); MCHC 31.9 g/dL (31.0-37.0); MCV 88.7 fL (80.0-100.0); Monocytes # (A) 0.4 k/uL (0-1.0); Monocytes % (A) 7 %; Neutrophils # (A) 3.2 k/uL (1.3-7.7); Neutrophils % (A) 57 %; Platelet Count 353 k/uL (150-450); RBC 4.81 m/uL (3.80-5.40); RDW 14.9 % (11.5-15.5); WBC 5.6 k/uL (3.8-10.6)
[2019-04-05 13:02] LABS: Erythrocyte Sedimentation Rate 21 mm/hr (0-20)
[2019-04-05 16:50] LABS: Iron Saturation 17.72 (12.00-45.00); Rheumatoid Factor 6 IU/mL (0-15)
[2019-04-05 16:52] LABS: Albumin/Globulin Ratio 1.6 (1.60-3.17); Anion Gap 5.7 mmol/L (4.00-12.00); Calcium 9.1 mg/dL (8.7-10.3); Carbon Dioxide 29.3 mmol/L (21.6-31.8); Globulin 2.5 g/dL (1.6-3.3); LDL Cholesterol,Calculated 84.6 mg/dL (0.0-131.0); Potassium 4.6 mmol/L (3.5-5.5); Total Bilirubin 0.4 mg/dL (0.2-1.2); Total Protein 6.5 g/dL (6.2-8.2); VLDL Calculation 31.4 mg/dL (5.00-40.00)
[2019-04-05 16:59] LABS: T4, Free (Free Thyroxine) 1.1 ng/dL (0.80-1.80); Vitamin D 25 Hydroxy 38.7 ng/mL (30.0-100.0)
[2019-04-05 17:00] LABS: Folate, Serum 6.4 ng/mL
[2019-04-05 21:43] LABS: Hemoglobin A1C 5.8 % (4.0-6.0)
[2019-04-08 12:58] LABS: Lyme IgG/IgM 0.05 Index
== END | disposition home or self-care (01) ==
LOC: LABWHC1 08:07
PROVIDERS: ATTEND Internal Medicine
DX: I31.3 Pericardial effusion (noninflammatory) (principal); F33.9 Major depressive disorder, recurrent, unspecified; G47.33 Obstructive sleep apnea (adult) (pediatric)
CPT/HCPCS: 36415; 80053; 80061; 82306; 82550; 82607; 82728; 82746; 83036; 83540; 83550; 84439; 84443; 85025; 85652; 86038; 86431; 86618

== ENCOUNTER 2019-04-24 09:00 | Day surgery (SDC) | payer BC ==
[2019-04-22 13:11] VITALS: BMI 32.6
[~2019-04-24 09:00] MED LIST: LACTATED RINGERS 1,000 ML IV SCH; LIDOCAINE 1% 20 ML VIAL (10MG/ML) FOR IV START INTRADERMA PRN
[2019-04-24 09:34] VITALS: TEMP 98.3
[2019-04-24] MEDS ORDERED: MIDAZOLAM 2 MG/2 ML VIAL ONE (10:08)
[2019-04-24] MEDS ORDERED: fentaNYL (PF) 50 MCG/ML 2 ML AMP ONE (10:08)
[2019-04-24] MEDS ORDERED: PROPOFOL 10 MG/ML 20 ML VIAL IV ONE (10:08)
[2019-04-24 10:33] VITALS: RESP 16
--- NOTE | 2019-04-24 10:34 | P.PCN ---
Date of Procedure: 04/24/19 Description of Procedure: BRIEF HISTORY: 54-year-old female who presents for outpatient EGD. Patient was initially seen in the hospital when she presented with acute uncomplicated pancreatitis. Ultrasound abdomen and gallbladder that time did not show any evidence of gallstones or CBD abnormality. She underwent MRI of the abdomen and follow-up which was negative for any abnormalities. After the episode she continued to have frequent nausea which she is still complaining of. She will use Zofran as needed for breakthrough nausea and is on omeprazole daily with ranitidine at night. She intermittently has episodes of abdominal pain described as burning in sensation without radiation. PROCEDURE PERFORMED: Esophagogastroduodenoscopy with biopsy. PREOPERATIVE DIAGNOSIS: GERD, nausea and vomiting. ESTIMATED BLOOD LOSS: Minimal. IV sedation per anesthesia. PROCEDURE: After informed consent was obtained, the patient was brought into the endoscopy unit. IV sedation was administered by Anesthesia under continuous monitoring. Initially the Olympus GIF-190 video endoscope was inserted into the mouth. Esophagus intubated without any difficulty. It was gradually advanced into the stomach and duodenum and carefully examined. The bulb and the second part of the duodenum appeared grossly normal, there were focal patches of erythema in the bulb suggestive of mild to moderate duodenitis with biopsies taken. The scope at this time was withdrawn to the stomach, adequately insufflated with air, and upon careful examination, mucosa of the antrum, body, cardia and the fundus appeared normal, except for some patchy erythema in the antrum and body suggestive of mild gastritis with biopsies. The scope was then withdrawn into the esophagus. The GE junction was located at 37 cm from the incisors and biopsy. The esophagus appeared normal. There were no erosions or ulcerations seen and the patient tolerated the procedure well. IMPRESSION: 1. Mild to moderate duodenitis, biopsied. 2. Mild gastritis antrum and body, biopsied. 3. GE junction biopsies. RECOMMENDATIONS: The findings of this examination were discussed with the patient and her friend. We'll continue treatment of GERD with omeprazole daily and Zantac at night. Await pathology from biopsies. Follow up with gastroenterology in 2-4 weeks for further symptom management. Continue Zofran as needed for nausea. Avoid NSAID use.
[2019-04-24 10:50] VITALS: BP 109/66; PULSE 53
== END 2019-04-24 11:35 | disposition home or self-care (01) ==
LOC: ORWHC2ENDO 09:00
PROVIDERS: ATTEND Internal Medicine
DX: K29.80 Duodenitis without bleeding (principal); K29.50 Unspecified chronic gastritis without bleeding; K31.9 Disease of stomach and duodenum, unspecified; K21.9 Gastro-esophageal reflux disease without esophagitis; G47.33 Obstructive sleep apnea (adult) (pediatric); Z87.19 Personal history of other diseases of the digestive system; Z79.891 Long term (current) use of opiate analgesic; Z79.899 Other long term (current) drug therapy; Z88.5 Allergy status to narcotic agent; Z90.89 Acquired absence of other organs; Z98.890 Other specified postprocedural states
CPT/HCPCS: 88305; 43239; J2250; J3010; J2704

== ENCOUNTER → 2019-10-30 | Outpatient (CLI) | payer BC ==
--- NOTE | 2019-10-30 09:15 | BD ---
EXAMINATION TYPE: Axial Bone Density DATE OF EXAM: 10/30/2019 COMPARISON: NONE CLINICAL HISTORY: M 85.9 Height: 67.75 Weight: 221 FRAX RISK QUESTIONS: Alcohol (3 or more units per day): no Family History (Parent hip fracture): no Glucocorticoids (More than 3mos): no (Ex: prednisone, prednisolone, methylprednisolone, dexamethasone, and hydrocortisone). History of Fracture in Adulthood: no Secondary Osteoporosis: 1. Type 1 Diabetes: no 2. Hyperthyroidism: no 3. Menopause before 45: no 4. Malnutrition: no 5. Chronic liver disease: no Rheumatoid Arthritis: no Current Tobacco Use: no RISK FACTORS HISTORY OF: Family History of Osteoporosis: not to knowledge of patient Active: yes Diet low in dairy products/other sources of calcium: no Postmenopausal woman: yes Take estrogen and/or progesterone medications: no How long: hormonal contraceptives for 6 months Lost more than 2 inches in height since high school: no Frequent falls: no Poor Health: no, fair health Hyperparathyroidism: no Adrenal Insufficiency: no MEDICATIONS: Prednisone or other steroids: no Thyroid Medications: no Osteoporosis Medications: no Additional Medications: none to note Additional History: pancreatitis one year ago EXAM MEASUREMENTS: Bone mineral densitometry was performed using the Moven System. Bone mineral density as measured about the Lumbar spine is: ----- L1-L4(G/cm2): 1.067 T Score Values are as follows: ----- L2: -0.5 ----- L3: -1.4 ----- L4: -0.7 ----- L1-L4: -0.9 Bone mineral density BASELINE Bone mineral density about the R hip (g/cm2): 0.787 Bone mineral density about the L hip (g/cm2): 0.766 T Score values are as follows: -----R Neck: -1.8 -----L Neck: -2.0 -----R Total: -1.5 -----L Total: -1.7 Bone mineral density BASELINE IMPRESSION: Osteopenia (T Score between -2.5 and -1). There is slightly increased risk of fracture and the patient may be considered for treatment. Re-Screen 2-5 years. NOTE: T-SCORE=SD OF THE YOUNG ADULT MEAN.
--- NOTE | 2019-11-17 09:38 | MM ---
Reason for exam: screening (asymptomatic). Last mammogram was performed 2 years and 5 months ago. History: Patient is postmenopausal and is nulliparous. Took hormonal contraceptives for 6 months. Physical Findings: A clinical breast exam by your physician is recommended on an annual basis and results should be correlated with mammographic findings. MG Screening Mammo w CAD Bilateral CC and MLO view(s) were taken. Prior study comparison: May 25, 2017, mammogram, performed at [place]. May 04, 2015, mammogram, performed at [place]. There are scattered fibroglandular densities. There is no discrete abnormality. No significant changes when compared with prior studies. ASSESSMENT: Negative, BI-RAD 1 RECOMMENDATION: Routine screening mammogram of both breasts in 1 year.
== END | disposition home or self-care (01) ==
LOC: RADMAMWWP 07:33
PROVIDERS: ATTEND Internal Medicine
DX: Z12.31 Encounter for screening mammogram for malignant neoplasm of breast (principal); M85.80 Other specified disorders of bone density and structure, unspecified site
CPT/HCPCS: 77067; 77080

== ENCOUNTER → 2019-12-18 | Outpatient (CLI) | payer BC ==
--- NOTE | 2019-12-19 07:38 | CT ---
EXAMINATION TYPE: CT abdomen w con DATE OF EXAM: 12/18/2019 COMPARISON: 10/21/18 HISTORY: Other chronic pancreatitis CT DLP: 1410 mGycm CONTRAST: CT scan of the abdomen is performed without Oral Contrast and with IV Contrast, patient injected with 100 ml mL of Isovue 370. FINDINGS: LUNG BASES-: No visible nodule. No infiltrate. LIVER/GB: No calcified gallstones. Hepatic steatosis. Stable hyperdense lesion measuring 1.2 cm pos terior segment right hepatic lobe medially is felt to reflect hemangioma. No space occupying hepatic lesion. Biliary tree is of normal caliber. PANCREAS: No inflammation. No distinct mass. SPLEEN: No splenic enlargement. No lesion seen. ADRENALS: No nodule. No thickening. KIDNEYS/BLADDER: No hydronephrosis. No nephrolithiasis. No distinct renal mass. Urinary bladder g rossly unremarkable. BOWEL: Visualized bowel loops are of normal caliber. LYMPH NODES: No greater than 1cm abdominal or pelvic lymph nodes are appreciated. AORTA: No significant abnormality. OSSEOUS STRUCTURES: No significant abnormality is seen. OTHER: No significant additional abnormality is seen. IMPRESSION: 1. No evidence of pancreatitis at this time. 2. Hepatic steatosis. 3. Stable hemangioma of the liver.
== END | disposition home or self-care (01) ==
LOC: RADCTMAIN 12:47
PROVIDERS: ATTEND Internal Medicine
DX: K76.0 Fatty (change of) liver, not elsewhere classified (principal); D18.03 Hemangioma of intra-abdominal structures
CPT/HCPCS: 74160; Q9967

== ENCOUNTER → 2020-11-10 | Outpatient (CLI) | payer OTHER ==
--- NOTE | 2020-11-11 14:12 | MM ---
Reason for exam: screening (asymptomatic). Last mammogram was performed 1 year ago. History: Patient is postmenopausal and is nulliparous. Took hormonal contraceptives for 6 months. Physical Findings: A clinical breast exam by your physician is recommended on an annual basis and results should be correlated with mammographic findings. MG Screening Mammo w CAD Bilateral CC and MLO view(s) were taken. Prior study comparison: October 30, 2019, bilateral MG screening mammo w CAD. May 25, 2017, mammogram, performed at [place]. There are scattered fibroglandular densities. No significant changes when compared with prior studies. ASSESSMENT: Negative, BI-RAD 1 RECOMMENDATION: Routine screening mammogram of both breasts in 1 year.
== END | disposition home or self-care (01) ==
LOC: RADMAMWWP 11:10
PROVIDERS: ATTEND Internal Medicine
DX: Z12.31 Encounter for screening mammogram for malignant neoplasm of breast (principal)
CPT/HCPCS: 77067

== ENCOUNTER → 2021-02-25 | Outpatient (CLI) | payer OTHER ==
--- NOTE | 2021-02-25 11:45 | XR ---
EXAMINATION TYPE: XR pelvis AP view DATE OF EXAM: 02/25/2021 CLINICAL HISTORY: pain TECHNIQUE: Single view the pelvis is submitted. FINDINGS: No evidence for fracture, dislocation or bony lesion. Joint spaces are well-preserved. S I joints appear symmetric. IMPRESSION: 1. No acute fracture or dislocation seen. ICD 10 NO FRACTURE, INITIAL EVALUATION
--- NOTE | 2021-02-25 11:50 | XR ---
EXAMINATION TYPE: XR lumbosacral spine min 4V DATE OF EXAM: 02/25/2021 CLINICAL HISTORY: pain COMPARISON: NONE TECHNIQUE: Frontal, lateral, and oblique images of the lumbar spine are obtained. FINDINGS: There are 5 lumbar type vertebral bodies identified. The lumbar spine shows satisfactory alignment without evidence of acute fracture or dislocation. Vertebral body heights are within normal limits. Moderate degenerative narrowing L4-5 and L5-S1. The overlying soft tissue appears unremark able. IMPRESSION: No acute fracture or dislocation is seen in the lumbar spine.ICD 10 NO FRACTURE, INITIAL EVALUATION
== END | disposition home or self-care (01) ==
LOC: RADXRMAIN 10:08
PROVIDERS: ATTEND Internal Medicine
DX: M54.5 Low back pain (principal)
CPT/HCPCS: 72110; 72170

== ENCOUNTER 2021-06-12 10:24 | Inpatient (IN) | payer OTHER ==
[2021-06-12] MEDS ORDERED: KETOROLAC 15 MG/ML 1 ML VIAL IVP STA (10:53)
[2021-06-12] MEDS ORDERED: SODIUM CHLORIDE 0.9% 2,000 ML IV STA (10:53)
[2021-06-12] MEDS ORDERED: HYDROmorphone 0.5 MG/0.5 ML SYRINGE IVP STA (10:53)
[2021-06-12] MEDS ORDERED: ONDANSETRON 4 MG/2 ML VIAL IVP STA (10:53)
[2021-06-12 11:08] LABS: Basophils # (A) 0.1 k/uL (0-0.2); Basophils % (A) 1 %; Eosinophils # (A) 0.1 k/uL (0-0.7); Eosinophils % (A) 1 %; HCT 43.9 % (34.0-46.0); HGB 14.1 gm/dL (11.4-16.0); Lymphocytes # (A) 1.1 k/uL (1.0-4.8); Lymphocytes % (A) 9 %; MCH 29.1 pg (25.0-35.0); MCHC 32.2 g/dL (31.0-37.0); MCV 90.6 fL (80.0-100.0); Mean Platelet Volume 6.9; Monocytes # (A) 0.6 k/uL (0-1.0); Monocytes % (A) 5 %; Neutrophils # (A) 9.8 k/uL (1.3-7.7); Neutrophils % (A) 83 %; Platelet Count 403 k/uL (150-450); RBC 4.85 m/uL (3.80-5.40); RDW 14.3 % (11.5-15.5); WBC 11.8 k/uL (3.8-10.6)
[2021-06-12 11:19] LABS: ALT 24 U/L (4-34); AST 35 U/L (14-36); African American GFR (CKD) >90 (>60 ml/min/1.73 sqM); Albumin 4.2 g/dL (3.5-5.0); Alkaline Phosphatase 139 U/L (38-126); Anion Gap 9 mmol/L; Blood Urea Nitrogen 11 mg/dL (7-17); Carbon Dioxide 26 mmol/L (22-30); Chloride 106 mmol/L (98-107); Glucose 114 mg/dL (74-99); Non-African American GFR(CKD) >90 (>60 ml/min/1.73 sqM); Sodium 141 mmol/L (137-145); Total Bilirubin 0.2 mg/dL (0.2-1.3); Total Protein 7.1 g/dL (6.3-8.2)
[2021-06-12 11:40] LABS: Amylase 1378 U/L (30-110)
[2021-06-12 11:53] LABS: Potassium 4.6 mmol/L (3.5-5.1)
[2021-06-12 11:56] LABS: Lipase 14668 U/L (23-300)
[2021-06-12] MEDS ORDERED: ONDANSETRON 4 MG/2 ML VIAL IVP PRN (12:36)
[2021-06-12] MEDS ORDERED: NALOXONE 0.4 MG/ML 1 ML VIAL IV PRN (12:36)
--- NOTE | 2021-06-12 12:36 | ED ---
Abdominal Pain HPI - General Chief Complaint: Abdominal Pain Stated Complaint: pancreatitis pain Time Seen by Provider: 06/12/21 10:41 Source: patient, RN notes reviewed Mode of arrival: ambulatory Limitations: no limitations - History of Present Illness Initial Comments: This a 56-year-old female presents emergency Department chief complaint abdominal pain. Patient states started last night has greatly worsened. She states the mid abdomen does admit to nausea vomiting. Patient states that she has a history of pancreatitis feels very similar. She's had no prior cholecystectomy. No fevers or chills no chest pain she states that they were unsure what causing the past. - Related Data Home Medications Medication Instructions Recorded Confirmed DULoxetine HCL [Cymbalta] 90 mg PO HS 04/24/19 06/12/21 Alendronate Sodium [Fosamax] 70 mg PO FR 06/12/21 06/12/21 Bladderwrack 1 tab PO DAILY 06/12/21 06/12/21 Calcium Carbonate 500 mg PO DAILY 06/12/21 06/12/21 Cholecalciferol [Vitamin D3 (25 25 mcg PO DAILY 06/12/21 06/12/21 Mcg = 1000 Iu)] Cod Liver Oil 1 cap PO DAILY 06/12/21 06/12/21 Cyanocobalamin (Vitamin B-12) 1,000 mcg PO DAILY 06/12/21 06/12/21 [Vitamin B-12] Cyclobenzaprine [Flexeril] 5 mg PO HS PRN 06/12/21 06/12/21 Docusate [Colace] 100 mg PO HS 06/12/21 06/12/21 Famotidine 40 mg PO HS 06/12/21 06/12/21 Folic Acid 0.8 mg PO DAILY 06/12/21 06/12/21 Niacin 500 mg PO DAILY 06/12/21 06/12/21 Omeprazole 40 mg PO DAILY 06/12/21 06/12/21 Zolpidem [Ambien] 5 mg PO HS PRN 06/12/21 06/12/21 Allergies Allergy/AdvReac Type Severity Reaction Status Date / Time oxycodone [From Percocet] AdvReac Vomiting Verified 06/12/21 11:57 Review of Systems ROS Statement: Those systems with pertinent positive or pertinent negative responses have been documented in the HPI. ROS Other: All systems not noted in ROS Statement are negative. Past Medical History Past Medical History: GERD/Reflux, Osteoarthritis (OA), Pneumonia, Sleep A pnea/CPAP/BIPAP Additional Past Medical History / Comment(s): Cpap at night, occasional sinus problems, lungs have scar tissue thought d/t previous pneumonias, bronchitis,. dysphagia at times, hx acute pancreatitis. History of Any Multi-Drug Resistant Organisms: None Reported Past Surgical History: Adenoidectomy, Appendectomy, Orthopedic Surgery Additional Past Surgical History / Comment(s): EGD, colonoscopies x 2-normal, D&C, R middle finger surgery, Past Anesthesia/Blood Transfusion Reactions: Motion Sickness Past Psychological History: Anxiety, Depression Smoking Status: Never smoker Past Alcohol Use History: None Reported Past Drug Use History: None Reported - Past Family History Mother Family Medical History: Dementia Additional Family Medical History / Comment(s): Mother is hx alzheimers Father Family Medical History: Respiratory Disorder, Rheumatoid Arthritis (RA) Additional Family Medical History / Comment(s): Father is . He had pulmonary fibrosis. General Exam Limitations: no limitations General appearance: alert, in no apparent distress Head exam: Present: atraumatic, normocephalic, normal inspection Respiratory exam: Present: normal lung sounds bilaterally. Absent: respiratory distress, wheezes, rales, rhonchi, stridor Cardiovascular Exam: Present: regular rate, normal rhythm, normal heart sounds. Absent: systolic murmur, diastolic murmur, rubs, gallop, clicks GI/Abdominal exam: Present: soft, tenderness, normal bowel sounds. Absent: distended, guarding, rebound, rigid Back exam: Absent: CVA tenderness (R), CVA tenderness (L) Neurological exam: Present: alert Skin exam: Present: warm, dry, intact, normal color. Absent: rash Course Vital Signs 06/12/21 06/12/21 10:33 12:25 Temperature 98.1 F Pulse Rate 74 79 Respiratory 18 18 Rate Blood Pressure 119/63 118/70 O2 Sat by Pulse 96 98 Oximetry Medical Decision Making - Medical Decision Making Patient has evidence of acute pancreatitis. Case discussed with Dr. Laureano who requests GI and surgery consult along with CT of abdomen and pelvis. - Lab Data Result diagrams: 06/12/21 10:57 06/12/21 10:57 Lab Results 06/12/21 06/12/2121 Range/Units 10:57 10:57 10:57 WBC 11.8 H (3.8-10.6) k/uL RBC 4.85 (3.80-5.40) m/uL Hgb 14.1 (11.4-16.0) gm/dL Hct 43.9 (34.0-46.0) % MCV 90.6 (80.0-100.0) fL MCH 29.1 (25.0-35.0) pg MCHC 32.2 (31.0-37.0) g/dL RDW 14.3 (11.5-15.5) % Plt Count 403 (150-450) k/uL MPV 6.9 Neutrophils % 83 % Lymphocytes % 9 % Monocytes % 5 % Eosinophils % 1 % Basophils % 1 % Neutrophils # 9.8 H (1.3-7.7) k/uL Lymphocytes # 1.1 (1.0-4.8) k/uL Monocytes # 0.6 (0-1.0) k/uL Eosinophils # 0.1 (0-0.7) k/uL Basophils # 0.1 (0-0.2) k/uL Sodium 141 (137-145) mmol/L Potassium 4.6 (3.5-5.1) mmol/L Chloride 106 (98-107) mmol/L Carbon Dioxide 26 (22-30) mmol/L Anion Gap 9 mmol/L BUN 11 (7-17) mg/dL Creatinine 0.63 (0.52-1.04) mg/dL Est GFR (CKD-EPI)AfAm >90 (>60 ml/min/1.73 sqM) Est GFR (CKD-EPI)NonAf >90 (>60 ml/min/1.73 sqM) Glucose 114 H (74-99) mg/dL Plasma Lactic Acid Ebenezer 1.3 (0.7-2.0) mmol/L Calcium 9.0 (8.4-10.2) mg/dL Total Bilirubin 0.2 (0.2-1.3) mg/dL AST 35 (14-36) U/L ALT 24 (4-34) U/L Alkaline Phosphatase 139 H (38-126) U/L Total Protein 7.1 (6.3-8.2) g/dL Albumin 4.2 (3.5-5.0) g/dL Amylase 1378 H* (30-110) U/L Lipase 27366 H (23-300) U/L Disposition Clinical Impression: Acute pancreatitis Disposition: ADMITTED IP TO THIS HOSP Condition: Fair Referrals: Vera Laureano MD [Primary Care Provider] - 1-2 days
[2021-06-12 12:37] LABS: Appearance,Urine Cloudy (Clear); Bacteria,Urine Rare /hpf; Bilirubin,Urine Negative (Negative); Blood,Urine Negative (Negative); Color,Urine Yellow; Glucose,Urine (UA) Negative (Negative); Ketones,Urine Negative (Negative); Leukocyte Esterase,Urine Trace (Negative); Mucus,Urine Rare /hpf; Nitrite,Urine Negative (Negative); PH, Urine 7.5 (5.0-8.0); Protein,Urine Trace (Negative); RBC,Urine 1 /hpf (0-5); Specific Gravity,Urine 1.024 (1.001-1.035); Squamous Epithelial Cell,Urine 3 /hpf (0-4); Urobilinogen,Urine <2.0 mg/dL (<2.0); WBC,Urine 3 /hpf (0-5)
[2021-06-12] MEDS: SODIUM CHLORIDE 0.9% 1,000 ML IV SCH (12:59)
--- NOTE | 2021-06-12 14:17 | CT ---
EXAMINATION TYPE: CT abdomen pelvis w con DATE OF EXAM: 06/12/2021 HISTORY: acute pancreatitis CT DLP: 1556.4mGycm Automated Exposure Control for Dose Reduction was Utilized. CONTRAST: CT scan of the abdomen and pelvis is performed with IV Contrast, patient injected with 100 mL of Isov ue 300. COMPARISON: 12/18/2019 FINDINGS: LUNG BASES: No significant abnormality is appreciated. INCLUDED CARDIAC STRUCTURES: Unremarkable LIVER: No significant abnormality is appreciated. GALLBLADDER : No significant abnormality is appreciated. BILIARY TREE: No abnormal biliary tree dilation. PANCREAS: Mild heterogeneous appearance to the pancreatic parenchyma in the head. Mild fat stranding around the pancreatic head and body. Mild fat stranding around the second segment of the duodenum. Mi ldly prominent main pancreatic duct. Small amount of fluid in the right anterior pararenal space, no loculated fluid collection around the pancreas. Prominent retroperitoneal lymph nodes SPLEEN: No significant abnormality is seen. ADRENALS: No significant abnormality is seen. KIDNEYS AND URETERS: No significant abnormality is seen. URINARY BLADDER: No significant abnormality is appreciated. ESOPHAGUS: No significant abnormality is seen. STOMACH: No significant abnormality is seen. SMALL BOWEL: Fluid-filled distended proximal small bowel the upper abdomen. LARGE BOWEL: No intestinal obstruction. No diverticulosis or evidence of acute diverticulitis. APPENDIX: Not definitely identified. No secondary evidence of acute appendicitis. HERNIAS: No significant abnormality is seen. UTERUS/ADNEXA: No gross abnormality seen. PERITONEUM/MESENTRY: No pneumoperitoneum or ascites. LYMPH NODES: Prominent retroperitoneal lymph nodes likely reactive. MAJOR VASCULAR STRUCTURES: Nonaneurysmal aorta. Unremarkable inferior vena cava. OSSEOUS STRUCTURES: Stable fracture deformity L1 vertebral body. No acute osseous abnormality. No agg ressive osseous lesion. Severe narrowing of the intervertebral spaces at L4-5 and L5-S1. Mild facet j oint arthropathy in the lumbar spine. IMPRESSION: 1. Findings suspicious for acute pancreatitis, clinical correlation for necrotizing pancreatitis uday mmended. No loculated peripancreatic fluid collection at this time. There is nonloculated small amoun t of fluid in the retroperitoneum likely reactive. Prominent retroperitoneal lymph nodes likely react maximilian as well appear 2. Mild distention of the upper abdomen small bowel likely reactive and likely suggests ileus.
[2021-06-12] MEDS ORDERED: CYCLOBENZAPRINE 5 MG TAB PO PRN (15:46)
[2021-06-12] MEDS ORDERED: ZOLPIDEM 5 MG TAB PO PRN (15:46)
--- NOTE | 2021-06-12 15:59 | P.HPIM ---
History of Present Illness H&P Date: 06/12/21 Chief Complaint: Acute pancreatitis. HISTORY OF PRESENT ILLNESS: This is a 56-year-old female one of my patient with a previous medical history significant for recurrent pancreatitis, history of GERD with esophagitis, history of possible necrosis, degenerative disc disease of lumbar spine, insomnia, major depressive disorder, patient presented to the emergency d [facility] today after she woke up at around 4:00 in the morning with increased abdominal pain located in the epigastric area radiating to the back associated with nausea but no vomiting patient has not had a bowel movement in quite sometimes, patient is aware of her symptoms and she knew that she is having another flareup of her pancreatitis patient has not been drinking any alcohol at this time, however she did have a birthday cake yesterday with a lot of frosting, patient also did have popcorn which was a bit greasy according to her, patient was seen in the ER and had a laboratory evaluation that showed an elevated white count and significantly elevated lipase at 14,000, amylase is elevated as well, patient underwent computed tomography scan of the abdomen with contrast that suggest pancreatitis could not rule out necrotizing pancreatitis at this time, patient was admitted to the floor she was kept on nothing per mouth GI consultation as well as surgical consultation, started the patient on IV fluid in the form of normal saline at 120 5C an hour, ultrasound of the abdomen, we will follow-up with the patient very closely. REVIEW OF SYSTEMS: Constitutional: No documented fever, no chills, no night sweats. No weight change. No weakness, fatigue or lethargy. No daytime sleepiness. HEENT: No headache. No blurred vision or double vision, no loss of vision. No loss of Hearing, no ringing in the ears, no dizziness. No nasal drainage or congestion. No epistaxis. No sore throat. Lungs: No shortness of breath, no cough, no sputum production. No wheezing. Reports dyspnea with activity. Cardiovascular: No chest pain, no lower extremity edema. No palpitations. No paroxysmal nocturnal dyspnea. No orthopnea. No lightheadedness or dizziness. No syncopal episodes. Abdominal: Reports abdominal pain. positive for nausea,no vomiting. No diarr hea. positive for constipation. No bloody or tarry stools reports no loss of appetite. Genitourinary: No dysuria, increased frequency, urgency. No urinary retention. Musculoskeletal: No myalgias. No muscle weakness, no gait dysfunction, no frequent falls. No back pain. No neck pain. Integumentary: No wounds, no lesions. No rash or pruritus. No unusual bruising. No change in hair or nails. Neurologic: No aphasia. No facial droop. No change in mentation. No head injury. No headache. No paralysis. No paresthesia. Psychiatric: positive for depression. No anxiety. No mood swings. Endocrine: No abnormal blood sugars. No weight change. PAST MEDICAL HISTORY: Recurrent pancreatitis. GERD. Depression. Osteoporosis Degenerative disc disease of the lumbar spine. Obesity with obstructive sleep apnea. PAST SURGICAL HISTORY: Adenoidectomy. EGD with with colonoscopy. Right middle finger surgery. Appendectomy. D&C. SOCIAL HISTORY: Patient denies a history of smoking, she denies any history of drinking at this time, she has no drug use or abuse. FAMILY HISTORY: father at age of 82 from old age and he also had history of hypertension, mother at age of 80 from dementia, patient has 2 brothers and one sister no major medical problems. PHYSICAL EXAMINATION: General: 56-year-old female laying down in bed in mild distress. HEENT: Head is atraumatic, normocephalic, pupils were equal round reactive to light and recommendation, extraocular muscle movement were intact, sclera nonicteric, conjunctivae were pale, mucous membranes of the mouth are somewhat dry. Neck: Supple, no JVP, normal carotid upstroke bilaterally, no lymphadenopathy. Chest: Decreased breath sounds at the bases, few rhonchi, no expiratory wheezes, no chest wall tenderness, no intercostal retractions. Heart: First heart sound is normal, second heart sounds normal there is no gallop or murmur. Abdomen: Soft, moderate tenderness in the right upper quadrant and midepigastric area positive bowel sounds. No unusual bruising. Extremities: There is no edema no calf tenderness DP +2 bilaterally. Neurologic examination: Patient is awake alert and oriented X3, cranial nerves II-12 appear grossly intact, muscle power were 5 out of 5 in upper extremities and 5 out of 5 in bilateral lower extremities, deep tendon reflexes normal bilaterally. ASSESSMENT AND PLAN: 1. Acute pancreatitis this is a second episode of acute pancreatitis a computed tomography scan of the abdomen with contrast did show evidence of changes suggestive of pancreatitis and rule out necrotizing pancreatitis, keep the patient nothing per mouth, continue IV fluid resuscitation, continue Dilaudid 0.5 mg 1 mg IV push every 3 hours as needed, GI consultation, ultrasound of the abdomen, general surgery consultation, continue patient on nothing per mouth for now, follow-up with the patient very closely, repeat labs tomorrow morning per 2. Leukocytosis likely related to acute pancreatitis repeat CBC tomorrow morning. 3. GERD with esophagitis. Continue Protonix 40 mg IV push every 24 hours, continue Pepcid 40 mg at bedtime. 4. Osteoporosis. Discontinue alendronate for now. 5. Depressive disorder. Continue Cymbalta 90 mg at bedtime. 6. Insomnia. Continue zolpidem 5 mg at the time. 7. DVT prophylaxis. Continue patient on heparin 5000 units subcutaneously every 8 hours, continue with bilateral knee-high DANIKA hose. 8. GI prophylaxis. Continue patient on Protonix 40 mg IV push every 24 hours along with Pepcid. 9. Admit to inpatient. Estimated length of stay 2 midnights. 10. Patient is full code. Past Medical History Past Medical History: GERD/Reflux, Osteoarthritis (OA), Pneumonia, Sleep Apnea/CPAP/BIPAP Additional Past Medical History / Comment(s): Cpap at night, occasional sinus problems, lungs have scar tissue thought d/t previous pneumonias, bronchitis,. dysphagia at times, hx acute pancreatitis. History of Any Multi-Drug Resistant Organisms: None Reported Past Surgical History: Adenoidectomy, Appendectomy, Orthopedic Surgery Additional Past Surgical History / Comment(s): EGD, colonoscopies x 2-normal, D&C, R middle finger surgery, Past Anesthesia/Blood Transfusion Reactions: Motion Sickness Past Psychological History: Anxiety, Depression Smoking Status: Never smoker Past Alcohol Use History: None Reported Past Drug Use History: None Reported - Past Family History Mother Family Medical History: Dementia Additional Family Medical History / Comment(s): Mother is hx alzheimers Father Family Medical History: Respiratory Disorder, Rheumatoid Arthritis (RA) Additional Family Medical History / Comment(s): Father is . He had pulmonary fibrosis. Medications and Allergies Home Medications Medication Instructions Recorded Confirmed Type DULoxetine HCL [Cymbalta] 90 mg PO HS 04/24/19 06/12/21 History Alendronate Sodium [Fosamax] 70 mg PO FR 06/12/21 06/12/21 History Bladderwrack 1 tab PO DAILY 06/12/21 06/12/21 History Calcium Carbonate 500 mg PO DAILY 06/12/21 06/12/21 History Cholecalciferol [Vitamin D3 (25 25 mcg PO DAILY 06/12/21 06/12/21 History Mcg = 1000 Iu)] Cod Liver Oil 1 cap PO DAILY 06/12/21 06/12/21 History Cyanocobalamin (Vitamin B-12) 1,000 mcg PO DAILY 06/12/21 06/12/21 History [Vitamin B-12] Cyclobenzaprine [Flexeril] 5 mg PO HS PRN 06/12/21 06/12/21 History Docusate [Colace] 100 mg PO HS 06/12/21 06/12/21 History Famotidine 40 mg PO HS 06/12/21 06/12/21 History Folic Acid 0.8 mg PO DAILY 06/12/21 06/12/21 History Niacin 500 mg PO DAILY 06/12/21 06/12/21 History Omeprazole 40 mg PO DAILY 06/12/21 06/12/21 History Zolpidem [Ambien] 5 mg PO HS PRN 06/12/21 06/12/21 History Allergies Allergy/AdvReac Type Severity Reaction Status Date / Time oxycodone [From Percocet] AdvReac Vomiting Verified 06/12/21 13:56 Physical Exam Vitals: Vital Signs Temp Pulse Resp BP Pulse Ox 06/12/21 12:25 79 18 118/70 98 06/12/21 10:33 98.1 F 74 18 119/63 96 Intake and Output 06/11/21 06/12/21 06/12/21 22:59 06:59 14:59 Other: Weight 97.522 kg Results CBC & Chem 7: 06/12/21 10:57 06/12/21 10:57 Labs: Abnormal Lab Results - Last 24 Hours (Table) 06/12/21 06/12/21 06/12/21 Range/Units 10:57 10:57 10:57 WBC 11.8 H (3.8-10.6) k/uL Neutrophils # 9.8 H (1.3-7.7) k/uL Glucose 114 H (74-99) mg/dL Alkaline Phosphatase 139 H (38-126) U/L Amylase 1378 H* (30-110) U/L Lipase 56199 H (23-300) U/L Urine Appearance Cloudy H (Clear) Urine Protein Trace H (Negative) Ur Leukocyte Esterase Trace H (Negative) Urine Bacteria Rare H (None) /hpf Urine Mucus Rare H (None) /hpf
[2021-06-12] MEDS: HEPARIN SODIUM,PORCINE/PF 5,000 UNIT/0.5 ML SYRINGE SQ SCH ×2 (17:45→23:45)
[2021-06-12] MEDS: ONDANSETRON 4 MG/2 ML VIAL IVP PRN (17:45)
--- NOTE | 2021-06-12 17:45 | P.GSCN ---
History of Present Illness Consult date: 06/12/21 History of present illness: CHIEF COMPLAINT: Pancreatitis HISTORY OF PRESENT ILLNESS: The patient is a 56-year-old female presented acutely to the emergency room last night due to severe epigastric abdominal pain. She reports past history of pancreatitis 4 years ago. She had not seen any general surgeons prior for this event. No reports of prior cholecystectomy. She reports eating cake with heavy frosting prior to her abdominal pain. Since admission, abdominal pain has improved but still moderate. General surgery is consulted for her pancreatitis and abdominal pain. PAST MEDICAL HISTORY: See list and reviewed PAST SURGICAL HISTORY: See list and reviewed MEDICATIONS: See list and reviewed ALLERGIES: See list and reviewed SOCIAL HISTORY: See list and reviewed FAMILY HISTORY: See list and reviewed REVIEW OF ORGAN SYSTEMS: CONSTITUTIONAL: No fevers or chills. No recent weight loss. BMI 34.1 EYES: Denies any trouble with vision. No glasses. HEENT: No difficulties with hearing. No nosebleeds. No difficulty swallowing. RESPIRATORY: Denies pneumonia. Denies any troubles with breathing or dyspnea on exertion. CARDIOVASCULAR: Denies any chest pain, palpitations, or recent heart attacks. GASTROINTESTINAL: Has gastroesophageal reflux disease. Has chronic constipation. GENITOURINARY: Denies any blood in urine or increased urinary frequency. NEUROLOGICAL: Denies any numbness or tingling along the distal extremities. No seizure disorders or headaches. MUSCULOSKELETAL: Denies any back pain, stiffness or joint arthritis. SKIN: No current skin cancer. No rash. PSYCHIATRIC: Has depressive disorder. ENDOCRINE: Denies current thyroid disorders. Denies any blood sugar glucose intolerance. HEME/LYMPHATIC: Denies any lumps and bumps around the neck. No recent deep venous thrombosis. ALLERGY/IMMUNOLOGY: No immunoglobulin therapy. No immune deficiencies. BREAST: Denies current breast lumps, pain or nipple discharge. PHYSICAL EXAM: VITALS: Reviewed CONSTITUTIONAL: Well developed and in no acute distress. EYES: Conjuctivae without sclera icterus. Extraocular movements grossly intact. HEAD, EARS, NOSE, THROAT: Moist buccal mucosa. Head is atraumatic, normocephalic. Hears conversational speech. No nasal drainage. NECK: Supple. No gross JV distention. No thyroidomegaly. RESPIRATORY: Non-labored respirations and equal bilateral excursions. No gross wheezes. CARDIOVASCULAR: Regular rate and rhythm. Extremities without moderate edema. Palpable 2+ radial pulses. ABDOMEN: LYMPH: No gross neck lymphadenopathy. MUSCULOSKELETAL: Nail and fingers with good capillary refill. SKIN: Warm and well perfused with good skin turgor. NEUROLOGIC: Cranial nerves II through XII grossly intact. Sensation upper and extremities intact. No focal or lateralizing signs. PSYCH: Appropriate affect. Alert and oriented to person, place and time. Displays appropriate insight. CLINCAL LABS: Reviewed. WBC elevated 11.8. Lipase elevated at 14,000. Amylase elevated at over 1300. IMAGING: Independently reviewed CT of the abdomen and pelvis with inflammatory changes along the head of the pancreas including inflammatory changes about the gallbladder. This is my independent interpretation. RADIOLOGY: Report reviewed of the CT of the abdomen and pelvis confirms inflammatory changes along the head and body of the pancreas with questionable necrotizing pancreatitis. Additionally features of ileus. RECORDS: Gallbladder ultrasound from 2018 independent review demonstrates less than 1 cm gallstone along the dependent portion of the gallbladder. This is my independent interpretation. ASSESSMENT: 1. Acute pancreatitis PLAN: 1. Recommend nothing by mouth at this time except ice chips 2. Recommend bowel rest 3. Recommend right upper quadrant ultrasound for recent assessment of gallstones. 4. Care plan described in detail for which all questions were addressed. 5. For gallstone induced pancreatitis, inpatient cholecystectomy described. Thank you for this kind consultation. Past Medical History Past Medical History: GERD/Reflux, Osteoarthritis (OA), Pneumonia, Sleep Apnea/CPAP/BIPAP Additional Past Medical History / Comment(s): Cpap at night, occasional sinus problems, lungs have scar tissue thought d/t previous pneumonias, bronchitis,. dysphagia at times, hx acute pancreatitis. History of Any Multi-Drug Resistant Organisms: None Reported Past Surgical History: Adenoidectomy, Appendectomy, Orthopedic Surgery Additional Past Surgical History / Comment(s): EGD, colonoscopies x 2-normal, D&C, R middle finger surgery, Past Anesthesia/Blood Transfusion Reactions: Motion Sickness Past Psychological History: Anxiety, Depression Smoking Status: Never smoker Past Alcohol Use History: None Reported Past Drug Use History: None Reported - Past Family History Mother Family Medical History: Dementia Additional Family Medical History / Comment(s): Mother is hx alzheimers Father Family Medical History: Respiratory Disorder, Rheumatoid Arthritis (RA) Additional Family Medical History / Comment(s): Father is . He had pulmonary fibrosis. Medications and Allergies Home Medications Medication Instructions Recorded Confirmed Type DULoxetine HCL [Cymbalta] 90 mg PO HS 04/24/19 06/12/21 History Alendronate Sodium [Fosamax] 70 mg PO FR 06/12/21 06/12/21 History Bladderwrack 1 tab PO DAILY 06/12/21 06/12/21 History Calcium Carbonate 500 mg PO DAILY 06/12/21 06/12/21 History Cholecalciferol [Vitamin D3 (25 25 mcg PO DAILY 06/12/21 06/12/21 History Mcg = 1000 Iu)] Cod Liver Oil 1 cap PO DAILY 06/12/21 06/12/21 History Cyanocobalamin (Vitamin B-12) 1,000 mcg PO DAILY 06/12/21 06/12/21 History [Vitamin B-12] Cyclobenzaprine [Flexeril] 5 mg PO HS PRN 06/12/21 06/12/21 History Docusate [Colace] 100 mg PO HS 06/12/21 06/12/21 History Famotidine 40 mg PO HS 06/12/21 06/12/21 History Folic Acid 0.8 mg PO DAILY 06/12/21 06/12/21 History Niacin 500 mg PO DAILY 06/12/21 06/12/21 History Omeprazole 40 mg PO DAILY 06/12/21 06/12/21 History Zolpidem [Ambien] 5 mg PO HS PRN 06/12/21 06/12/21 History Allergies Allergy/AdvReac Type Severity Reaction Status Date / Time oxycodone [From Percocet] AdvReac Vomiting Verified 06/12/21 13:56 Surgical - Exam Vital Signs Temp Pulse Resp BP Pulse Ox 98.1 F 74 18 119/63 96 06/12/21 10:33 06/12/21 10:33 06/12/21 10:33 06/12/21 10:33 06/12/21 10:33 Results - Labs 06/12/21 10:57 06/12/21 10:57 Abnormal Lab Results - Last 24 Hours (Table) 06/12/21 06/12/21 06/12/21 Range/Units 10:57 10:57 10:57 WBC 11.8 H (3.8-10.6) k/uL Neutrophils # 9.8 H (1.3-7.7) k/uL Glucose 114 H (74-99) mg/dL Alkaline Phosphatase 139 H (38-126) U/L Amylase 1378 H* (30-110) U/L Lipase 82989 H (23-300) U/L Urine Appearance Cloudy H (Clear) Urine Protein Trace H (Negative) Ur Leukocyte Esterase Trace H (Negative) Urine Bacteria Rare H (None) /hpf Urine Mucus Rare H (None) /hpf Diabetes panel 06/12/21 Range/Units 10:57 Sodium 141 (137-145) mmol/L Potassium 4.6 (3.5-5.1) mmol/L Chloride 106 (98-107) mmol/L Carbon Dioxide 26 (22-30) mmol/L BUN 11 (7-17) mg/dL Creatinine 0.63 (0.52-1.04) mg/dL Glucose 114 H (74-99) mg/dL Calcium 9.0 (8.4-10.2) mg/dL AST 35 (14-36) U/L ALT 24 (4-34) U/L Alkaline Phosphatase 139 H (38-126) U/L Total Protein 7.1 (6.3-8.2) g/dL Albumin 4.2 (3.5-5.0) g/dL Calcium panel 06/12/21 Range/Units 10:57 Calcium 9.0 (8.4-10.2) mg/dL Albumin 4.2 (3.5-5.0) g/dL Pituitary panel 06/12/21 Range/Units 10:57 Sodium 141 (137-145) mmol/L Potassium 4.6 (3.5-5.1) mmol/L Chloride 106 (98-107) mmol/L Carbon Dioxide 26 (22-30) mmol/L BUN 11 (7-17) mg/dL Creatinine 0.63 (0.52-1.04) mg/dL Glucose 114 H (74-99) mg/dL Calcium 9.0 (8.4-10.2) mg/dL Adrenal panel 06/12/21 Range/Units 10:57 Sodium 141 (137-145) mmol/L Potassium 4.6 (3.5-5.1) mmol/L Chloride 106 (98-107) mmol/L Carbon Dioxide 26 (22-30) mmol/L BUN 11 (7-17) mg/dL Creatinine 0.63 (0.52-1.04) mg/dL Glucose 114 H (74-99) mg/dL Calcium 9.0 (8.4-10.2) mg/dL Total Bilirubin 0.2 (0.2-1.3) mg/dL AST 35 (14-36) U/L ALT 24 (4-34) U/L Alkaline Phosphatase 139 H (38-126) U/L Total Protein 7.1 (6.3-8.2) g/dL Albumin 4.2 (3.5-5.0) g/dL Assessment and Plan (1) Acute pancreatitis Current Visit: Yes Status: Acute Code(s): K85.90 - ACUTE PANCREATITIS WITHOUT NECROSIS OR INFECTION, UNSP SNOMED Code(s): 637391043
[2021-06-12] MEDS: HYDROmorphone 1 MG/ML 1 ML SYRINGE IVP PRN ×3 (17:46→23:49)
--- NOTE | 2021-06-12 17:54 | US ---
EXAMINATION TYPE: US abdomen complete DATE OF EXAM: 06/12/2021 COMPARISON: NONE CLINICAL HISTORY: Acute pancreatitis. pancreatitis, and pain EXAM MEASUREMENTS: Liver Length: 17.6 cm Gallbladder Wall: 0.2 cm CBD: 0.6 cm Spleen: N/A Right Kidney: 9.1 x 3.8 x 4.3 cm Left Kidney: N/A patient is full of bowel gas and in pain when any pressure applied to abdomen, this all limits exam . Pancreas: areas seen appear wnl Liver: difficult to penetrate due to bowel gas and habitus, intercostal imagaing only Gallbladder: wnl Evidence for sonographic Stapleton's sign: no CBD: wnl Spleen: obscured by bowel gas, limited by patient's pain with pressure Right Kidney: wnl Left Kidney: obscured by bowel gas, limited by patient's pain with pressure Upper IVC: wnl Abd Aorta: distal portion obscured by bowel IMPRESSION: Left kidney not seen. No evidence of renal obstruction. No gallstones or dilated ducts.
[2021-06-12] MEDS: FAMOTIDINE 20 MG TAB PO SCH (20:43)
[2021-06-12] MEDS: DOCUSATE 100 MG CAP PO SCH (20:43)
[2021-06-12] MEDS: DULoxetine HCL 30 MG CAPSULE.DR PO SCH (20:43)
[2021-06-13] MEDS: SODIUM CHLORIDE 0.9% 1,000 ML IV SCH ×3 (03:01→21:00)
[2021-06-13] MEDS: HYDROmorphone 1 MG/ML 1 ML SYRINGE IVP PRN ×4 (04:27→22:50)
[2021-06-13 06:08] LABS: Basophils % (A) 0 %; Eosinophils % (A) 1 %; HCT 39.2 % (34.0-46.0); HGB 12.8 gm/dL (11.4-16.0); Lymphocytes # (A) 1.1 k/uL (1.0-4.8); Lymphocytes % (A) 13 %; MCH 29.6 pg (25.0-35.0); MCHC 32.6 g/dL (31.0-37.0); MCV 90.7 fL (80.0-100.0); Mean Platelet Volume 6.4; Monocytes # (A) 0.4 k/uL (0-1.0); Monocytes % (A) 5 %; Neutrophils # (A) 6.7 k/uL (1.3-7.7); Neutrophils % (A) 80 %; Platelet Count 363 k/uL (150-450); RBC 4.32 m/uL (3.80-5.40); RDW 14.8 % (11.5-15.5); WBC 8.3 k/uL (3.8-10.6)
[2021-06-13 06:36] LABS: ALT 19 U/L (4-34); AST 27 U/L (14-36); African American GFR (CKD) >90 (>60 ml/min/1.73 sqM); Albumin 3.3 g/dL (3.5-5.0); Alkaline Phosphatase 78 U/L (38-126); Anion Gap 4 mmol/L; Blood Urea Nitrogen 7 mg/dL (7-17); Calcium 7.7 mg/dL (8.4-10.2); Carbon Dioxide 24 mmol/L (22-30); Chloride 111 mmol/L (98-107); Glucose 121 mg/dL (74-99); Non-African American GFR(CKD) >90 (>60 ml/min/1.73 sqM); Potassium 4.2 mmol/L (3.5-5.1); Sodium 139 mmol/L (137-145); Total Bilirubin 0.3 mg/dL (0.2-1.3); Total Protein 5.9 g/dL (6.3-8.2)
[2021-06-13 06:49] LABS: Amylase 417 U/L (30-110); Lipase 2682 U/L (23-300)
[2021-06-13] MEDS: ONDANSETRON 4 MG/2 ML VIAL IVP PRN ×3 (07:51→20:04)
[2021-06-13] MEDS: PANTOPRAZOLE 40 MG/10 ML VIAL IV SCH (07:51)
[2021-06-13] MEDS: HYDROmorphone 0.5 MG/0.5 ML SYRINGE IVP PRN ×2 (07:51→14:43)
[2021-06-13] MEDS: HEPARIN SODIUM,PORCINE/PF 5,000 UNIT/0.5 ML SYRINGE SQ SCH ×3 (08:00→22:45)
[2021-06-13] MEDS ORDERED: KETOROLAC 15 MG/ML 1 ML VIAL IVP STA (10:03)
[2021-06-13] MEDS: CYANOCOBALAMIN 500 MCG TAB PO SCH (10:14)
[2021-06-13] MEDS: FOLIC ACID 1 MG TAB PO SCH (10:14)
--- NOTE | 2021-06-13 16:30 | P.PN ---
Subjective Progress Note Date: 06/13/21 CHIEF COMPLAINT: Pancreatitis HISTORY OF PRESENT ILLNESS: The patient is a 56-year-old female presented to the hospital with acute pancreatitis. She has had episodes 4 years ago. She denies any alcoholic beverages. Abdominal pain has improved but she still saw along the epigastrium. She is tolerating ice chips. REVIEW OF ORGAN SYSTEMS: No fevers or chills. No chest pain. No shortness of breath. PHYSICAL EXAM: VITALS: Reviewed CONSTITUTIONAL: Well developed and in no acute distress. EYES: Conjuctivae without sclera icterus. Extraocular movements grossly intact. HEAD, EARS, NOSE, THROAT: Moist buccal mucosa. Head is atraumatic, normocephalic. Hears conversational speech. No nasal drainage. NECK: Supple. No gross JV distention. No thyroidomegaly. RESPIRATORY: Non-labored respirations and equal bilateral excursions. No gross wheezes. CARDIOVASCULAR: Regular rate and rhythm. ABDOMEN: Tender epigastrium. No peritonitis. MUSCULOSKELETAL: No clubbing cyanosis or edema. SKIN: Warm and well perfused with good skin turgor. NEUROLOGIC: Cranial nerves II through XII grossly intact. Sensation upper and extremities intact. No focal or lateralizing signs. PSYCH: Appropriate affect. Alert and oriented to person, place and time. Displays appropriate insight. CLINCAL LABS: Reviewed. WBC elevated 11.8, now normal at 8.3. Lipase elevated at 14,000 now down to 2682. Amylase elevated at over 1300, now down to 417 STUDIES: Ultrasound of gallbladder and apparent reviewed without large gallstones identified. This is my independent interpretation. REPORT: Ultrasound report of gallbladder confirms gallbladder wall 2 mm. No radiopaque gallstones identified. ASSESSMENT: 1. Acute pancreatitis PLAN: 1. Findings of her studies including ultrasound of gallbladder reviewed. She has had past ultrasounds with gallstones. 2. Recommend patient's popsicles and she still has tenderness along the abdomen. 3. Options for cholecystectomy were described. Objective - Vital Signs Vital signs: Vital Signs Temp 98.7 F 06/13/21 08:00 Pulse 80 06/13/21 08:00 Resp 18 06/13/21 08:00 BP 118/67 06/13/21 08:00 Pulse Ox 95 06/13/21 08:00 Intake & Output 06/12/21 06/13/21 06/13/21 18:59 06:59 18:59 Intake Total 1375 Balance 1375 Weight 101.6 kg Intake: Intake, IV Titration 1375 Amount Sodium Chloride 0.9% 1, 1375 000 ml @ 125 mls/hr IV . Q8H [facility] Rx#:[id number] Other: Voiding Method Toilet Toilet Toilet # Voids 1 3 - Labs CBC & Chem 7: 06/13/21 05:55 06/13/21 05:55 Labs: Abnormal Lab Results - Last 24 Hours (Table) 06/13/21 Range/Units 05:55 Chloride 111 H (98-107) mmol/L Creatinine 0.47 L (0.52-1.04) mg/dL Glucose 121 H (74-99) mg/dL Calcium 7.7 L (8.4-10.2) mg/dL Total Protein 5.9 L (6.3-8.2) g/dL Albumin 3.3 L (3.5-5.0) g/dL Amylase 417 H* (30-110) U/L Lipase 2682 H (23-300) U/L Assessment and Plan (1) Acute pancreatitis Current Visit: Yes Status: Acute Code(s): K85.90 - ACUTE PANCREATITIS WITHOUT NECROSIS OR INFECTION, UNSP SNOMED Code(s): 297121872
--- NOTE | 2021-06-13 17:51 | P.CONS ---
History of Present Illness - Reason for Consult Consult date: 06/13/21 Acute pancreatitis Requesting physician: Vera Laureano - Chief Complaint Abdominal pain - History of Present Illness This a 56-year-old female with a past medical history of pancreatitis in 2018. Patient had workup and unknown etiology. Patient denies any history of alcohol abuse, no alcohol use, no family history of pancreatitis, in no new medications. She is followed with . She underwent an EGD in 2019 which found mild to moderate duodenitis and mild gastritis. Patient states the pain started as sudden onset 2 days ago associated with nausea but no vomiting. On admission the patient was found to have an amylase of 1378 and lipase of 14,668. LFTs we re essentially normal. Her repeat labs today show total bilirubin 0.3, alkaline phosphatase 78, AST 27, AST 19, amylase 417, lipase 2682. Patient states pain has improved it is now 5 out of 10. She still has some nausea but no vomiting. Looking back patient previously had autoimmune workup which was negative. No current triglyceride ordered. Review of Systems REVIEW OF SYSTEMS: CARDIOPULMONARY: No chest pain or shortness of breath. Gastrointestinal: Right upper quadrant pain. No nausea or vomiting. No hematemesis, coffee-ground emesis. No rectal bleeding, or melena. GENITOURINARY: No dysuria or hematuria. MUSCULOSKELETAL: Reports normal range of motion., Joint pain. SKIN: No rashes. No jaundice. ENDOCRINE: No chills, fevers. No excessive weight gain or loss. No polydipsia or polyuria. PSYCHIATRIC: Unremarkable. NEUROLOGY: No change in mental status. Denies dizziness, headache. ENT: Vision unremarkable. CONSTITUTIONAL: No recent weight loss. No fever, chills, night sweats. Past Medical History Past Medical History: GERD/Reflux, Osteoarthritis (OA), Pneumonia, Sleep Apnea/CPAP/BIPAP Additional Past Medical History / Comment(s): Cpap at night, occasional sinus problems, lungs have scar tissue thought d/t previous pneumonias, bronchitis,. dysphagia at times, hx acute pancreatitis. History of Any Multi-Drug Resistant Organisms: None Reported Past Surgical History: Adenoidectomy, Appendectomy, Orthopedic Surgery Additional Past Surgical History / Comment(s): EGD, colonoscopies x 2-normal, D&C, R middle finger surgery, Past Anesthesia/Blood Transfusion Reactions: Motion Sickness Past Psychological History: Anxiety, Depression Smoking Status: Never smoker Past Alcohol Use History: None Reported Past Drug Use History: None Reported - Past Family History Mother Family Medical History: Dementia Additional Family Medical History / Comment(s): Mother is hx alzheimers Father Family Medical History: Respiratory Disorder, Rheumatoid Arthritis (RA) Additional Family Medical History / Comment(s): Father is . He had pulmonary fibrosis. Medications and Allergies Home Medications Medication Instructions Recorded Confirmed Type DULoxetine HCL [Cymbalta] 90 mg PO HS 04/24/19 06/12/21 History Alendronate Sodium [Fosamax] 70 mg PO FR 06/12/21 06/12/21 History Bladderwrack 1 tab PO DAILY 06/12/21 06/12/21 History Calcium Carbonate 500 mg PO DAILY 06/12/21 06/12/21 History Cholecalciferol [Vitamin D3 (25 25 mcg PO DAILY 06/12/21 06/12/21 History Mcg = 1000 Iu)] Cod Liver Oil 1 cap PO DAILY 06/12/21 06/12/21 History Cyanocobalamin (Vitamin B-12) 1,000 mcg PO DAILY 06/12/21 06/12/21 History [Vitamin B-12] Cyclobenzaprine [Flexeril] 5 mg PO HS PRN 06/12/21 06/12/21 History Docusate [Colace] 100 mg PO HS 06/12/21 06/12/21 History Famotidine 40 mg PO HS 06/12/21 06/12/21 History Folic Acid 0.8 mg PO DAILY 06/12/21 06/12/21 History Niacin 500 mg PO DAILY 06/12/21 06/12/21 History Omeprazole 40 mg PO DAILY 06/12/21 06/12/21 History Zolpidem [Ambien] 5 mg PO HS PRN 06/12/21 06/12/21 History Allergies Allergy/AdvReac Type Severity Reaction Status Date / Time oxycodone [From Percocet] AdvReac Vomiting Verified 06/12/21 13:56 Physical Exam Vitals: Vital Signs Temp Pulse Resp BP Pulse Ox 06/13/21 08:00 98.7 F 80 18 118/67 95 06/13/21 01:32 97.8 F 80 18 109/70 98 06/12/21 19:21 97.8 F 72 18 113/72 97 06/12/21 13:34 98.0 F 81 18 124/76 96 Intake and Output 06/12/21 06/13/21 06/13/21 22:59 06:59 14:59 Intake Total 1375 Balance 1375 Intake: Intake, IV Titration 1375 Amount Sodium Chloride 0.9% 1, 1375 000 ml @ 125 mls/hr IV . Q8H [facility] Rx#:[id number] Other: Voiding Method Toilet Toilet # Voids 1 3 General appearance: The patient is alert, oriented, appears in no acute distress. HET: Head is normocephalic and atraumatic. Conjunctiva pink. Sclera anicteric. Neck: Supple without lymphadenopathy. Trachea midline. Heart: S1 S2. Regular rate and rhythm. Lungs: Clear to auscultation. Abdomen: Soft, right upper quadrant and epigastric tenderness, nondistended with bowel sounds. No guarding or rigidity. Skin: No rashes. No jaundice. Extremities: Normal skin color and turgor. No pedal edema. Neurological: No focal deficits. Alert and oriented 3.. Results CBC & Chem 7: 06/13/21 05:55 06/13/21 05:55 Labs: Abnormal Lab Results - Last 24 Hours (Table) 06/13/21 Range/Units 05:55 Chloride 111 H (98-107) mmol/L Creatinine 0.47 L (0.52-1.04) mg/dL Glucose 121 H (74-99) mg/dL Calcium 7.7 L (8.4-10.2) mg/dL Total Protein 5.9 L (6.3-8.2) g/dL Albumin 3.3 L (3.5-5.0) g/dL Amylase 417 H* (30-110) U/L Lipase 2682 H (23-300) U/L Comments: CT abdomen and pelvis shows Findings suspicious for acute pancreatitis,, clinical correlation for necrotizing pancreatitis recommended. No loculated. Pancreatic fluid collection at this time. There is non-loculated small amount of fluid in the retroperitoneum likely reactive. Prominent retroperitoneal lymph nodes likely reactive as well. Mild distention of the upper abdomen small bowel likely reactive in likely suggests ileus. Abdominal ultrasound shows left kidney not seen. No evidence of renal obstruction. No gallstones or dilated ducts. Assessment and Plan (1) Acute pancreatitis Narrative/Plan: This a 56-year-old female with a previous history of pancreatitis diagnosed in 2018 with unknown etiology. Autoimmune workup was completed with negative IgG4 and negative EDISON. Patient has no history of alcohol abuse, recent medications, or family history of pancreatitis. States pain started pretty abruptly 2-3 days ago associated with nausea but no vomiting. States the pain reminded her of her previous pancreatitis. LFTs are normal, on admission amylase was 1378 now down to 417, lipase 14,668 with a repeat today of 2682. Patient's symptoms are improving states pain is 5 out of 10. Will order triglyceride. Gen. surgery was on consult as well. Current Visit: Yes Status: Acute Code(s): K85.90 - ACUTE PANCREATITIS WITHOUT NECROSIS OR INFECTION, UNSP SNOMED Code(s): 680185128 Plan: 1. May advance to clear liquid diet in moderation 2. Continue aggressive IV hydration 3. Pain medication as needed 4. Antiemetics as needed 5. Triglycerides ordered 6. Repeat lipase tomorrow 7. If patient continues to have recurrent pancreatitis will consider outpatient [facility] Thank you for this consultation, we will continue to follow. Dr. Bianca Nava I agree with the dictator's note, documented as a scribe by Pauline Shane.
--- NOTE | 2021-06-13 18:29 | P.PN ---
Subjective Progress Note Date: 06/13/21 Progress note: 06/13/2021 HISTORY OF PRESENT ILLNESS: This is a 56-year-old female one of my patient with a previous medical history significant for recurrent pancreatitis, history of GERD with e sophagitis, history of possible necrosis, degenerative disc disease of lumbar spine, insomnia, major depressive disorder, patient presented to the emergency department at [facility] today after she woke up at around 4:00 in the morning with increased abdominal pain located in the epigastric area radiating to the back associated with nausea but no vomiting patient has not had a bowel movement in quite sometimes, patient is aware of her symptoms and she knew that she is having another flareup of her pancreatitis patient has not been drinking any alcohol at this time, however she did have a birthday cake yesterday with a lot of frosting, patient also did have popcorn which was a bit greasy according to her, patient was seen in the ER and had a laboratory evaluation that showed an elevated white count and significantly elevated lipase at 14,000, amylase is elevated as well, patient underwent computed tomography scan of the abdomen with contrast that suggest pancreatitis could not rule out necrotizing pancreatitis at this time, patient was admitted to the floor she was kept on nothing per mouth GI consultation as well as surgical consultation, started the patient on IV fluid in the form of normal saline at 120 5C an hour, ultrasound of the abdomen, we will follow-up with the patient very closely. 06/13: patient is laying down in bed she is feeling a bit better today she st arted on a clear liquid diet, she has no chest pain, shortness breath, she has minimal abdominal pain no nausea or vomiting at this time, she has no diarrhea, she was seen earlier by general surgery, ultrasound of the gallbladder did not show evidence of any gallstones at this time patient does not need to go for laparoscopic cholecystectomy at this time, we'll continue with conservative management patient may need to have an EUS as an outpatient REVIEW OF SYSTEMS: Constitutional: No documented fever, no chills, no night sweats. No weight change. No weakness, fatigue or lethargy. No daytime sleepiness. HEENT: No headache. No blurred vision or double vision, no loss of vision. No loss of Hearing, no ringing in the ears, no dizziness. No nasal drainage or congestion. No epistaxis. No sore throat. Lungs: No shortness of breath, no cough, no sputum production. No wheezing. Reports dyspnea with activity. Cardiovascular: No chest pain, no lower extremity edema. No palpitations. No paroxysmal nocturnal dyspnea. No orthopnea. No lightheadedness or dizziness. No syncopal episodes. Abdominal: Reports abdominal pain. positive for nausea,no vomiting. No diarrhea. positive for constipation. No bloody or tarry stools reports no loss of appetite. Genitourinary: No dysuria, increased frequency, urgency. No urinary retention. Musculoskeletal: No myalgias. No muscle weakness, no gait dysfunction, no frequent falls. No back pain. No neck pain. Integumentary: No wounds, no lesions. No rash or pruritus. No unusual bruising. No change in hair or nails. Neurologic: No aphasia. No facial droop. No change in mentation. No head injury. No headache. No paralysis. No paresthesia. Psychiatric: positive for depression. No anxiety. No mood swings. Endocrine: No abnormal blood sugars. No weight change. PHYSICAL EXAMINATION: General: 56-year-old female laying down in bed in mild distress. HEENT: Head is atraumatic, normocephalic, pupils were equal round reactive to light and recommendation, extraocular muscle movement were intact, sclera nonicteric, conjunctivae were pale, mucous membranes of the mouth are somewhat dry. Neck: Supple, no JVP, normal carotid upstroke bilaterally, no lymphadenopathy. Chest: Decreased breath sounds at the bases, few rhonchi, no expiratory wheezes, no chest wall tenderness, no intercostal retractions. Heart: First heart sound is normal, second heart sounds normal there is no gallop or murmur. Abdomen: Soft, moderate tenderness in the right upper quadrant and midepigastric area positive bowel sounds. No unusual bruising. Extremities: There is no edema no calf tenderness DP +2 bilaterally. Neurologic examination: Patient is awake alert and oriented X3, cranial nerves II-12 appear grossly intact, muscle power were 5 out of 5 in upper extremities and 5 out of 5 in bilateral lower extremities, deep tendon reflexes normal bilaterally. ASSESSMENT AND PLAN: 1. Acute pancreatitis this is a second episode of acute pancreatitis a computed tomography scan of the abdomen with contrast did show evidence of changes suggestive of pancreatitis and rule out necrotizing pancreatitis, keep the patient on clear liquid, continue IV fluid resuscitation, continue Dilaudid 0.5 mg 1 mg IV push every 3 hours as needed, GI and surgical consultation appreciated. 2. Leukocytosis likely related to acute pancreatitis repeat CBC tomorrow morning. 3. GERD with esophagitis. Continue Protonix 40 mg IV push every 24 hours, continue Pepcid 40 mg at bedtime. 4. Osteoporosis. Discontinue alendronate for now. 5. Depressive disorder. Continue Cymbalta 90 mg at bedtime. 6. Insomnia. Continue zolpidem 5 mg at the time. 7. DVT prophylaxis. Continue patient on heparin 5000 units subcutaneously every 8 hours, continue with bilateral knee-high DANIKA hose. 8. GI prophylaxis. Continue patient on Protonix 40 mg IV push every 24 hours along with Pepcid. 9. repeat labs tomorrow morning, keep on clear liquid diet. Objective - Vital Signs Vital signs: Vital Signs Temp 98.7 F 06/13/21 08:00 Pulse 80 06/13/21 08:00 Resp 18 06/13/21 08:00 BP 118/67 06/13/21 08:00 Pulse Ox 95 06/13/21 08:00 Intake & Output 06/12/21 06/13/21 06/13/21 18:59 06:59 18:59 Intake Total 1375 Balance 1375 Weight 101.6 kg Intake: Intake, IV Titration 1375 Amount Sodium Chloride 0.9% 1, 1375 000 ml @ 125 mls/hr IV . Q8H [facility] Rx#:[id number] Other: Voiding Method Toilet Toilet Toilet # Voids 1 3 - Labs CBC & Chem 7: 06/13/21 05:55 06/13/21 05:55 Labs: Abnormal Lab Results - Last 24 Hours (Table) 06/12/21 06/12/21 06/12/21 Range/Units 10:57 10:57 10:57 WBC 11.8 H (3.8-10.6) k/uL Neutrophils # 9.8 H (1.3-7.7) k/uL Chloride (98-107) mmol/L Creatinine (0.52-1.04) mg/dL Glucose 114 H (74-99) mg/dL Calcium (8.4-10.2) mg/dL Alkaline Phosphatase 139 H (38-126) U/L Total Protein (6.3-8.2) g/dL Albumin (3.5-5.0) g/dL Amylase 1378 H* (30-110) U/L Lipase 01109 H (23-300) U/L Urine Appearance Cloudy H (Clear) Urine Protein Trace H (Negative) Ur Leukocyte Esterase Trace H (Negative) Urine Bacteria Rare H (None) /hpf Urine Mucus Rare H (None) /hpf 06/13/21 Range/Units 05:55 WBC (3.8-10.6) k/uL Neutrophils # (1.3-7.7) k/uL Chloride 111 H (98-107) mmol/L Creatinine 0.47 L (0.52-1.04) mg/dL Glucose 121 H (74-99) mg/dL Calcium 7.7 L (8.4-10.2) mg/dL Alkaline Phosphatase (38-126) U/L Total Protein 5.9 L (6.3-8.2) g/dL Albumin 3.3 L (3.5-5.0) g/dL Amylase 417 H* (30-110) U/L Lipase 2682 H (23-300) U/L Urine Appearance (Clear) Urine Protein (Negative) Ur Leukocyte Esterase (Negative) Urine Bacteria (None) /hpf Urine Mucus (None) /hpf
[2021-06-13] MEDS: FAMOTIDINE 20 MG TAB PO SCH (20:04)
[2021-06-13] MEDS: DULoxetine HCL 30 MG CAPSULE.DR PO SCH (20:05)
[2021-06-13] MEDS: DOCUSATE 100 MG CAP PO SCH (20:05)
[2021-06-14] MEDS: SODIUM CHLORIDE 0.9% 1,000 ML IV SCH ×3 (01:33→16:56)
[2021-06-14] MEDS: HYDROmorphone 0.5 MG/0.5 ML SYRINGE IVP PRN ×3 (02:00→20:20)
[2021-06-14] MEDS: ONDANSETRON 4 MG/2 ML VIAL IVP PRN ×2 (05:04→20:20)
[2021-06-14] MEDS: HYDROmorphone 1 MG/ML 1 ML SYRINGE IVP PRN (06:06)
[2021-06-14 07:16] LABS: HCT 36.8 % (34.0-46.0); HGB 12.1 gm/dL (11.4-16.0); Hypochromasia Slight; MCH 30.6 pg (25.0-35.0); MCHC 32.9 g/dL (31.0-37.0); MCV 93.1 fL (80.0-100.0); Mean Platelet Volume 7.3; Platelet Count 322 k/uL (150-450); RBC 3.96 m/uL (3.80-5.40); RDW 14.4 % (11.5-15.5); WBC 9.6 k/uL (3.8-10.6)
[2021-06-14 07:45] LABS: ALT 17 U/L (4-34); AST 24 U/L (14-36); African American GFR (CKD) >90 (>60 ml/min/1.73 sqM); Albumin 3.1 g/dL (3.5-5.0); Alkaline Phosphatase 71 U/L (38-126); Anion Gap 4 mmol/L; Blood Urea Nitrogen 5 mg/dL (7-17); Calcium 7.7 mg/dL (8.4-10.2); Carbon Dioxide 26 mmol/L (22-30); Chloride 108 mmol/L (98-107); Glucose 106 mg/dL (74-99); Non-African American GFR(CKD) >90 (>60 ml/min/1.73 sqM); Potassium 4.2 mmol/L (3.5-5.1); Sodium 138 mmol/L (137-145); Total Bilirubin 0.4 mg/dL (0.2-1.3); Total Protein 5.7 g/dL (6.3-8.2)
[2021-06-14] MEDS: HEPARIN SODIUM,PORCINE/PF 5,000 UNIT/0.5 ML SYRINGE SQ SCH ×2 (08:00→16:49)
[2021-06-14] MEDS: FOLIC ACID 1 MG TAB PO SCH (08:01)
[2021-06-14] MEDS: PANTOPRAZOLE 40 MG/10 ML VIAL IV SCH (08:01)
[2021-06-14] MEDS: CYANOCOBALAMIN 500 MCG TAB PO SCH (08:01)
[2021-06-14] MEDS ORDERED: PROCHLORPERAZINE 10 MG TAB PO PRN (09:04)
--- NOTE | 2021-06-14 09:09 | P.PN ---
Subjective Progress Note Date: 06/14/21 Principal diagnosis: pancreatitis this is a 56-year-old female who was admitted for acute pancreatitis. She has a history of pancreatitis in 2018. She has been following with gastroenterology and had autoimmune workup which was negative.triglycerides were drawn yesterday and were 87. She denies any history of alcohol abuse, no new medications, no family history of pancreatitis. LFTs have been normal, amylase and lipase have been trending down. Today's lipase is pending. She states abdominal pain has improved and is a 3 out of 10. However patient is still having significant nausea, but no vomiting. No bowel movement since Sunday or Sunday. Objective - Vital Signs Vital signs: Vital Signs Temp 98.1 F 06/14/21 08:22 Pulse 69 06/14/21 08:22 Resp 17 06/14/21 08:22 BP 116/73 06/14/21 08:22 Pulse Ox 95 06/14/21 08:22 Intake & Output 06/13/21 06/14/21 06/14/21 18:59 06:59 18:59 Intake Total 1500 Balance 1500 Intake: Intake, IV Titration 1500 Amount Sodium Chloride 0.9% 1, 1500 000 ml @ 125 mls/hr IV . Q8H [facility] Rx#:[id number] Other: Voiding Method Toilet # Voids 2 2 - Exam General appearance: The patient is alert, oriented, appears in no acute dis tress. HET: Head is normocephalic and atraumatic. Conjunctiva pink. Sclera anicteric. Neck: Supple without lymphadenopathy. Abdomen: Soft, nontender, nondistended with decreased bowel sounds. No guarding or rigidity. Extremities: Normal skin color and turgor. No pedal edema Skin: No rashes, no jaundice Neurological: No focal deficits. Alert and oriented 3. - Labs CBC & Chem 7: 06/14/21 07:05 06/14/21 07:05 Labs: Abnormal Lab Results - Last 24 Hours (Table) 06/14/21 Range/Units 07:05 Chloride 108 H (98-107) mmol/L BUN 5 L (7-17) mg/dL Creatinine 0.43 L (0.52-1.04) mg/dL Glucose 106 H (74-99) mg/dL Calcium 7.7 L (8.4-10.2) mg/dL Total Protein 5.7 L (6.3-8.2) g/dL Albumin 3.1 L (3.5-5.0) g/dL Assessment and Plan (1) Acute pancreatitis Narrative/Plan: This a 56-year-old female with a previous history of pancreatitis diagnosed in 2018 with unknown etiology. Autoimmune workup was completed with negative IgG4 and negative EDISON. Patient has no history of alcohol abuse, recent medications, or family history of pancreatitis. States pain started pretty abruptly 2-3 days ago associated with nausea but no vomiting. States the pain reminded her of her previous pancreatitis. LFTs are normal, on admission amylase was 1378 now down to 417, lipase 14,668 with a repeat today of 2682. Patient's symptoms are improving states pain is 5 out of 10. Will order triglyceride. Gen. surgery was on consult as well. Current Visit: Yes Status: Acute Code(s): K85.90 - ACUTE PANCREATITIS WITHOUT NECROSIS OR INFECTION, UNSP SNOMED Code(s): 300575931 Plan: 1. Continue clear liquid diet for now, advance to full liquid in the morning 2. Continue aggressive IV hydration 3. Pain medication as needed 4. Antiemetics as needed, Compazine added 5. Triglycerides ordered and reviewed 6. If patient continues to have recurrent pancreatitis will consider outpatient EUS Thank you for this consultation, we will continue to follow. Dr. Bianca Nava I agree with the dictator's note, documented as a scribe by Pauline Shane.
[2021-06-14] MEDS: KETOROLAC 15 MG/ML 1 ML VIAL IVP PRN (11:28)
[2021-06-14 15:00] VITALS: RESP 16
[2021-06-14] MEDS: FAMOTIDINE 20 MG TAB PO SCH (20:18)
[2021-06-14] MEDS: DULoxetine HCL 30 MG CAPSULE.DR PO SCH (20:18)
[2021-06-14] MEDS: DOCUSATE 100 MG CAP PO SCH (20:19)
[2021-06-15] MEDS: HEPARIN SODIUM,PORCINE/PF 5,000 UNIT/0.5 ML SYRINGE SQ SCH ×3 (00:02→17:32)
[2021-06-15] MEDS: KETOROLAC 15 MG/ML 1 ML VIAL IVP PRN ×3 (00:03→13:54)
[2021-06-15] MEDS: SODIUM CHLORIDE 0.9% 1,000 ML IV SCH ×2 (02:10→08:06)
[2021-06-15] MEDS: FOLIC ACID 1 MG TAB PO SCH (08:05)
[2021-06-15] MEDS: CYANOCOBALAMIN 500 MCG TAB PO SCH (08:05)
[2021-06-15] MEDS: PANTOPRAZOLE 40 MG/10 ML VIAL IV SCH (08:05)
--- NOTE | 2021-06-15 12:54 | P.PN ---
Subjective Progress Note Date: 06/15/21 Principal diagnosis: pancreatitis this is a 56-year-old female who was admitted for acute pancreatitis. She has a history of pancreatitis in 2018. She has been following with gastroenterology and had autoimmune workup which was negative.triglycerides were drawn yesterday and were 87. She denies any history of alcohol abuse, no new medications, no family history of pancreatitis. LFTs have been normal, amylase and lipase have been trending down. She states abdominal pain and tenuous to improve. States she only had to receive 1 dose of pain medication through the night. She tolerated her meal this morning, has some mild nausea but no vomiting. Patient has had no bowel movement since Sunday or Sunday. Objective - Vital Signs Vital signs: Vital Signs Temp 98.0 F 06/15/21 08:19 Pulse 69 06/15/21 08:19 Resp 16 06/15/21 08:19 BP 126/76 06/15/21 08:19 Pulse Ox 97 06/15/21 08:19 Intake & Output 06/14/21 06/15/21 06/15/21 18:59 06:59 18:59 Intake Total 1915 Balance 1915 Intake: Intake, IV Titration 1375 Amount Sodium Chloride 0.9% 1, 1375 000 ml @ 125 mls/hr IV . Q8H [facility] Rx#:[id number] Oral 540 Other: Voiding Method Toilet # Voids 3 1 - Exam General appearance: The patient is alert, oriented, appears in no acute distress. HET: Head is normocephalic and atraumatic. Conjunctiva pink. Sclera anicteric. Neck: Supple without lymphadenopathy. Abdomen: Soft, right upper quadrant and epigastric tenderness, nondistended with decreased bowel sounds. No guarding or rigidity. Extremities: Normal skin color and turgor. No pedal edema Skin: No rashes, no jaundice Neurological: No focal deficits. Alert and oriented 3. - Labs CBC & Chem 7: 06/14/21 07:05 06/14/21 07:05 Labs: Abnormal Lab Results - Last 24 Hours (Table) 06/14/21 Range/Units 07:05 Lipase 343 H (23-300) U/L Assessment and Plan (1) Acute pancreatitis Narrative/Plan: This a 56-year-old female with a previous history of pancreatitis diagnosed in 2018 with unknown etiology. Autoimmune workup was completed with negative IgG4 and negative EDISON. Patient has no history of alcohol abuse, recent medications, or family history of pancreatitis. States pain started pretty abruptly 2-3 days ago associated with nausea but no vomiting. States the pain reminded her of her previous pancreatitis. LFTs are normal, on admission amylase was 1378 now down to 417, lipase 14,668 with a repeat today of 2682. Patient's symptoms are improving states pain is 5 out of 10. Will order triglyceride. Gen. surgery was on consult as well. Not likely caused by gall bladder disease as gallbladder and CT abdomen and pelvis report no evidence of gallstones reported. As LFTS also have been normal unlikely biliary pancreatitis. Current Visit: Yes Status: Acute Code(s): K85.90 - ACUTE PANCREATITIS WITHOUT NECROSIS OR INFECTION, UNSP SNOMED Code(s): 741174775 Plan: 1. Full liquid diet, advance as tolerated 2. Pain medication as needed 3. Antiemetics as needed, Compazine added 4. Triglycerides ordered and reviewed 5. If patient continues to have recurrent pancreatitis will consider outpatient EUS 6. If patient continues to tolerate diet and pain remains controlled she may be cleared for discharge from gastroenterology Thank you for this consultation, we will continue to follow. Dr. Bianca Nava I agree with the dictator's note, documented as a scribe by Pauline Shane.
[2021-06-15 14:38] VITALS: BP 127/79; PULSE 68; TEMP 98.1
--- NOTE | 2021-06-15 17:43 | P.PN ---
Subjective Progress Note Date: 06/14/21 Progress note: 06/14/2021 HISTORY OF PRESENT ILLNESS: This is a 56-year-old female one of my patient with a previous medical history significant for recurrent pancreatitis, history of GERD with e sophagitis, history of possible necrosis, degenerative disc disease of lumbar spine, insomnia, major depressive disorder, patient presented to the emergency department at [facility] today after she woke up at around 4:00 in the morning with increased abdominal pain located in the epigastric area radiating to the back associated with nausea but no vomiting patient has not had a bowel movement in quite sometimes, patient is aware of her symptoms and she knew that she is having another flareup of her pancreatitis patient has not been drinking any alcohol at this time, however she did have a birthday cake yesterday with a lot of frosting, patient also did have popcorn which was a bit greasy according to her, patient was seen in the ER and had a laboratory evaluation that showed an elevated white count and significantly elevated lipase at 14,000, amylase is elevated as well, patient underwent computed tomography scan of the abdomen with contrast that suggest pancreatitis could not rule out necrotizing pancreatitis at this time, patient was admitted to the floor she was kept on nothing per mouth GI consultation as well as surgical consultation, started the patient on IV fluid in the form of normal saline at 120 5C an hour, ultrasound of the abdomen, we will follow-up with the patient very closely. 06/13: patient is laying down in bed she is feeling a bit better today she st arted on a clear liquid diet, she has no chest pain, shortness breath, she has minimal abdominal pain no nausea or vomiting at this time, she has no diarrhea, she was seen earlier by general surgery, ultrasound of the gallbladder did not show evidence of any gallstones at this time patient does not need to go for laparoscopic cholecystectomy at this time, we'll continue with conservative management patient may need to have an EUS as an outpatient 06/14: Patient is laying down in bed in no apparent distress she is tolerating her liquid diet very well, she has no chest pain or shortness breath, she has some abdominal pain not as bad as it was yesterday her lipase is dropped drastically down, we'll advance the diet to full liquid diet and hopefully discharge her home the next 24 hours. REVIEW OF SYSTEMS: Constitutional: No documented fever, no chills, no night sweats. No weight change. No weakness, fatigue or lethargy. No daytime sleepiness. HEENT: No headache. No blurred vision or double vision, no loss of vision. No loss of Hearing, no ringing in the ears, no dizziness. No nasal drainage or congestion. No epistaxis. No sore throat. Lungs: No shortness of breath, no cough, no sputum production. No wheezing. Reports dyspnea with activity. Cardiovascular: No chest pain, no lower extremity edema. No palpitations. No paroxysmal nocturnal dyspnea. No orthopnea. No lightheadedness or dizziness. No syncopal episodes. Abdominal: Reports abdominal pain. positive for nausea,no vomiting. No diarrhea. positive for constipation. No bloody or tarry stools reports no loss of appetite. Genitourinary: No dysuria, increased frequency, urgency. No urinary retention. Musculoskeletal: No myalgias. No muscle weakness, no gait dysfunction, no frequent falls. No back pain. No neck pain. Integumentary: No wounds, no lesions. No rash or pruritus. No unusual bruising . No change in hair or nails. Neurologic: No aphasia. No facial droop. No change in mentation. No head injury. No headache. No paralysis. No paresthesia. Psychiatric: positive for depression. No anxiety. No mood swings. Endocrine: No abnormal blood sugars. No weight change. PHYSICAL EXAMINATION: General: 56-year-old female laying down in bed in mild distress. HEENT: Head is atraumatic, normocephalic, pupils were equal round reactive to light and recommendation, extraocular muscle movement were intact, sclera nonicteric, conjunctivae were pale, mucous membranes of the mouth are somewhat dry. Neck: Supple, no JVP, normal carotid upstroke bilaterally, no lymphadenopathy. Chest: Decreased breath sounds at the bases, few rhonchi, no expiratory wheezes, no chest wall tenderness, no intercostal retractions. Heart: First heart sound is normal, second heart sounds normal there is no g allop or murmur. Abdomen: Soft, moderate tenderness in the right upper quadrant and midepigastric area positive bowel sounds. No unusual bruising. Extremities: There is no edema no calf tenderness DP +2 bilaterally. Neurologic examination: Patient is awake alert and oriented X3, cranial nerves II-12 appear grossly intact, muscle power were 5 out of 5 in upper extremities and 5 out of 5 in bilateral lower extremities, deep tendon reflexes normal bilaterally. ASSESSMENT AND PLAN: 1. Acute pancreatitis this is a second episode of acute pancreatitis a computed tomography scan of the abdomen with contrast did show evidence of changes suggestive of pancreatitis and rule out necrotizing pancreatitis, keep the patient on clear liquid, continue IV fluid resuscitation, continue Dilaudid 0.5 mg 1 mg IV push every 3 hours as needed, GI and surgical consultation appreciated. 2. Leukocytosis likely related to acute pancreatitis repeat CBC tomorrow morning. 3. GERD with esophagitis. Continue Protonix 40 mg IV push every 24 hours, continue Pepcid 40 mg at bedtime. 4. Osteoporosis. Discontinue alendronate for now. 5. Depressive disorder. Continue Cymbalta 90 mg at bedtime. 6. Insomnia. Continue zolpidem 5 mg at the time. 7. DVT prophylaxis. Continue patient on heparin 5000 units subcutaneously every 8 hours, continue with bilateral knee-high DANIKA hose. 8. GI prophylaxis. Continue patient on Protonix 40 mg IV push every 24 hours along with Pepcid. 9. repeat labs tomorrow morning, keep on clear liquid diet. Objective - Vital Signs Vital signs: Vital Signs Temp 97.6 F 06/14/21 02:00 Pulse 82 06/14/21 02:00 Resp 18 06/14/21 02:00 BP 123/69 06/14/21 02:00 Pulse Ox 96 06/14/21 02:00 Intake & Output 06/13/21 06/14/21 06/14/21 18:59 06:59 18:59 Intake Total 1500 Balance 1500 Intake: Intake, IV Titration 1500 Amount Sodium Chloride 0.9% 1, 1500 000 ml @ 125 mls/hr IV . Q8H [facility] Rx#:[id number] Other: Voiding Method Toilet # Voids 2 2 - Labs CBC & Chem 7: 06/14/21 07:05 06/14/21 07:05 Labs: Abnormal Lab Results - Last 24 Hours (Table) 06/14/21 Range/Units 07:05 Chloride 108 H (98-107) mmol/L BUN 5 L (7-17) mg/dL Creatinine 0.43 L (0.52-1.04) mg/dL Glucose 106 H (74-99) mg/dL Calcium 7.7 L (8.4-10.2) mg/dL Total Protein 5.7 L (6.3-8.2) g/dL Albumin 3.1 L (3.5-5.0) g/dL
[2021-06-15] MEDS ORDERED: PIPERACILLIN-TAZOBACTAM 3.375 GM in SODIUM CHLORIDE 0.9% 100 ML IVPB SCH (18:00)
--- NOTE | 2021-06-15 18:25 | P.PN ---
Subjective Progress Note Date: 06/15/21 Progress note: 06/14/2021 HISTORY OF PRESENT ILLNESS: This is a 56-year-old female one of my patient with a previous medical history significant for recurrent pancreatitis, history of GERD with e sophagitis, history of possible necrosis, degenerative disc disease of lumbar spine, insomnia, major depressive disorder, patient presented to the emergency department at [facility] today after she woke up at around 4:00 in the morning with increased abdominal pain located in the epigastric area radiating to the back associated with nausea but no vomiting patient has not had a bowel movement in quite sometimes, patient is aware of her symptoms and she knew that she is having another flareup of her pancreatitis patient has not been drinking any alcohol at this time, however she did have a birthday cake yesterday with a lot of frosting, patient also did have popcorn which was a bit greasy according to her, patient was seen in the ER and had a laboratory evaluation that showed an elevated white count and significantly elevated lipase at 14,000, amylase is elevated as well, patient underwent computed tomography scan of the abdomen with contrast that suggest pancreatitis could not rule out necrotizing pancreatitis at this time, patient was admitted to the floor she was kept on nothing per mouth GI consultation as well as surgical consultation, started the patient on IV fluid in the form of normal saline at 120 5C an hour, ultrasound of the abdomen, we will follow-up with the patient very closely. 06/13: patient is laying down in bed she is feeling a bit better today she st arted on a clear liquid diet, she has no chest pain, shortness breath, she has minimal abdominal pain no nausea or vomiting at this time, she has no diarrhea, she was seen earlier by general surgery, ultrasound of the gallbladder did not show evidence of any gallstones at this time patient does not need to go for laparoscopic cholecystectomy at this time, we'll continue with conservative management patient may need to have an EUS as an outpatient 06/14: Patient is laying down in bed in no apparent distress she is tolerating her liquid diet very well, she has no chest pain or shortness breath, she has some abdominal pain not as bad as it was yesterday her lipase is dropped drastically down, we'll advance the diet to full liquid diet and hopefully discharge her home the next 24 hours. 06/15: Patient is laying down in bed in no apparent distress she is feeling a lot better than yesterday, we will continue liquid diet for another 24 hours, started on a full liquid diet tomorrow morning, increase activity, decrease IV fluid to 50 mL an hour, and monitor the patient labs in the next 24 hours. REVIEW OF SYSTEMS: Constitutional: No documented fever, no chills, no night sweats. No weight change. No weakness, fatigue or lethargy. No daytime sleepiness. HEENT: No headache. No blurred vision or double vision, no loss of vision. No loss of Hearing, no ringing in the ears, no dizziness. No nasal drainage or congestion. No epistaxis. No sore throat. Lungs: No shortness of breath, no cough, no sputum production. No wheezing. Reports dyspnea with activity. Cardiovascular: No chest pain, no lower extremity edema. No palpitations. No paroxysmal nocturnal dyspnea. No orthopnea. No lightheadedness or dizziness. No syncopal episodes. Abdominal: Reports abdominal pain. positive for nausea,no vomiting. No diarrhea. positive for constipation. No bloody or tarry stools reports no loss of appetite. Genitourinary: No dysuria, increased frequency, urgency. No urinary retention. Musculoskeletal: No myalgias. No muscle weakness, no gait dysfunction, no frequent falls. No back pain. No neck pain. Integumentary: No wounds, no lesions. No rash or pruritus. No unusual bruising. No change in hair or nails. Neurologic: No aphasia. No facial droop. No change in mentation. No head injury. No headache. No paralysis. No paresthesia. Psychiatric: positive for depression. No anxiety. No mood swings. Endocrine: No abnormal blood sugars. No weight change. PHYSICAL EXAMINATION: General: 56-year-old female laying down in bed in mild distress. HEENT: Head is atraumatic, normocephalic, pupils were equal round reactive to light and recommendation, extraocular muscle movement were intact, sclera nonicteric, conjunctivae were pale, mucous membranes of the mouth are somewhat dry. Neck: Supple, no JVP, normal carotid upstroke bilaterally, no lymphadenopathy. Chest: Decreased breath sounds at the bases, few rhonchi, no expiratory wheezes, no chest wall tenderness, no intercostal retractions. Heart: First heart sound is normal, second heart sounds normal there is no gallop or murmur. Abdomen: Soft, moderate tenderness in the right upper quadrant and midepigastric area positive bowel sounds. No unusual bruising. Extremities: There is no edema no calf tenderness DP +2 bilaterally. Neurologic examination: Patient is awake alert and oriented X3, cranial nerves II-12 appear grossly intact, muscle power were 5 out of 5 in upper extremities and 5 out of 5 in bilateral lower extremities, deep tendon reflexes normal bilaterally. ASSESSMENT AND PLAN: 1. Acute pancreatitis this is a second episode of acute pancreatitis a computed tomography scan of the abdomen with contrast did show evidence of changes suggestive of pancreatitis and rule out necrotizing pancreatitis, patient is tolerating full liquid diet well, we will discharge home no immediate need for Lap-jenifer since there is no gallstones 2. Leukocytosis likely related to acute pancreatitis repeat CBC tomorrow morning. 3. GERD with esophagitis. Continue Protonix 40 mg IV push every 24 hours, continue Pepcid 40 mg at bedtime. 4. Osteoporosis. Discontinue alendronate for now. 5. Depressive disorder. Continue Cymbalta 90 mg at bedtime. 6. Insomnia. Continue zolpidem 5 mg at the time. 7. DVT prophylaxis. Continue patient on heparin 5000 units subcutaneously every 8 hours, continue with bilateral knee-high DANIKA hose. 8. GI prophylaxis. Continue patient on Protonix 40 mg IV push every 24 hours along with Pepcid. 9. discharge home and follow up with me in 1 week Objective - Vital Signs Vital signs: Vital Signs Temp 98.1 F 06/15/21 14:11 Pulse 68 06/15/21 14:11 Resp 16 06/15/21 14:11 BP 127/79 06/15/21 14:11 Pulse Ox 98 06/15/21 14:11 Intake & Output 06/14/21 06/15/21 06/15/21 18:59 06:59 18:59 Intake Total 1914 Balance 1914 Intake: Intake, IV Titration 1375 Amount Sodium Chloride 0.9% 1, 1375 000 ml @ 125 mls/hr IV . Q8H JAYLAN Rx#:[id number] Oral 540 Other: Voiding Method Toilet # Voids 3 1 - Labs CBC & Chem 7: 06/14/21 07:05 06/14/21 07:05
--- NOTE | 2021-06-15 18:26 | P.DS ---
Providers Date of admission: 06/12/21 12:33 Expected date of discharge: 06/15/21 Attending physician: Vera Laureano Consults: 06/12/21 12:37 Consult Physician Routine Consulting Provider: Radhika Nava Consult Reason/Comments: Acute pancreatitis Do you want consulting provider notified?: Yes 06/12/21 17:59 Consult Physician Urgent Consulting Provider: Holly Elliott Consult Reason/Comments: acute pancreatitis Do you want consulting provider notified?: Already Contacted Primary care physician: Vera Laureano Hospital Course: HISTORY OF PRESENT ILLNESS: This is a 56-year-old female one of my patient with a previous medical history significant for recurrent pancreatitis, history of GERD with esophagitis, history of possible necrosis, degenerative disc disease of lumbar spine, insomnia, major depressive disorder, patient presented to the emergency department at [facility] today after she woke up at around 4:00 in the morning with increased abdominal pain located in the epigastric area radiating to the back associated with nausea but no vomiting patient has not had a bowel movement in quite sometimes, patient is aware of her symptoms and she knew that she is having another flareup of her pancreatitis patient has not been drinking any alcohol at this time, however she did have a birthday cake yesterday with a lot of frosting, patient also did have popcorn which was a bit greasy according to her, patient was seen in the ER and had a laboratory evaluation that showed an elevated white count and significantly elevated lipase at 14,000, amylase is elevated as well, patient underwent computed tomography scan of the abdomen with contrast that suggest pancreatitis could not rule out necrotizing pancreatitis at this time, patient was admitted to the floor she was kept on nothing per mouth GI consultation as well as surgical consultation, started the patient on IV fluid in the form of normal saline at 120 5C an hour, ultrasound of the abd omen, we will follow-up with the patient very closely. 06/13: patient is laying down in bed she is feeling a bit better today she started on a clear liquid diet, she has no chest pain, shortness breath, she has minimal abdominal pain no nausea or vomiting at this time, she has no diarrhea, she was seen earlier by general surgery, ultrasound of the gallbladder did not show evidence of any gallstones at this time patient does not need to go for laparoscopic cholecystectomy at this time, we'll continue with conservative management patient may need to have an EUS as an outpatient 06/14: Patient is laying down in bed in no apparent distress she is tolerating her liquid diet very well, she has no chest pain or shortness breath, she has some abdominal pain not as bad as it was yesterday her lipase is dropped drastically down, we'll advance the diet to full liquid diet and hopefully discharge her home the next 24 hours. 06/15: Patient is laying down in bed in no apparent distress she is feeling a lot better than yesterday, we will continue liquid diet for another 24 hours, started on a full liquid diet tomorrow morning, increase activity, decrease IV fluid to 50 mL an hour, and monitor the patient labs in the next 24 hours. discharge diagnoses: 1. Acute pancreatitis this is a second episode of acute pancreatitis - no Gallstones. 2. Leukocytosis likely related to acute pancreatitis repeat CBC tomorrow morning. 3. GERD with esophagitis. Continue Protonix 40 mg IV push every 24 hours, continue Pepcid 40 mg at bedtime. 4. Osteoporosis. Discontinue alendronate for now. 5. Depressive disorder. Continue Cymbalta 90 mg at bedtime. 6. Insomnia Patient Condition at Discharge: Good Plan - Discharge Summary Discharge Rx Participant: Yes New Discharge Prescriptions: No Action DULoxetine HCL [Cymbalta] 90 mg PO HS Folic Acid 0.8 mg PO DAILY Cod Liver Oil 1 cap PO DAILY Calcium Carbonate 500 mg PO DAILY Niacin 500 mg PO DAILY Cyanocobalamin (Vitamin B-12) [Vitamin B-12] 1,000 mcg PO DAILY Cyclobenzaprine [Flexeril] 5 mg PO HS PRN PRN Reason: Muscle Pain Alendronate Sodium [Fosamax] 70 mg PO FR Cholecalciferol [Vitamin D3 (25 Mcg = 1000 Iu)] 25 mcg PO DAILY Zolpidem [Ambien] 5 mg PO HS PRN PRN Reason: Insomnia Omeprazole 40 mg PO DAILY Docusate [Colace] 100 mg PO HS Bladderwrack 1 tab PO DAILY Famotidine 40 mg PO HS Discharge Medication List DULoxetine HCL [Cymbalta] 90 mg PO HS 04/24/19 [History] Alendronate Sodium [Fosamax] 70 mg PO FR 06/12/21 [History] Bladderwrack 1 tab PO DAILY 06/12/21 [History] Calcium Carbonate 500 mg PO DAILY 06/12/21 [History] Cholecalciferol [Vitamin D3 (25 Mcg = 1000 Iu)] 25 mcg PO DAILY 06/12/21 [History] Cod Liver Oil 1 cap PO DAILY 06/12/21 [History] Cyanocobalamin (Vitamin B-12) [Vitamin B-12] 1,000 mcg PO DAILY 06/12/21 [History] Cyclobenzaprine [Flexeril] 5 mg PO HS PRN 06/12/21 [History] Docusate [Colace] 100 mg PO HS 06/12/21 [History] Famotidine 40 mg PO HS 06/12/21 [History] Folic Acid 0.8 mg PO DAILY 06/12/21 [History] Niacin 500 mg PO DAILY 06/12/21 [History] Omeprazole 40 mg PO DAILY 06/12/21 [History] Zolpidem [Ambien] 5 mg PO HS PRN 06/12/21 [History] Follow up Appointment(s)/Referral(s): Vera Laureano MD [Primary Care Provider] - 1-2 days
[2021-06-15] MEDS ORDERED: HYDROcodone/APAP 5-325MG 1 EACH TAB PO PRN (18:27)
--- NOTE | 2021-06-15 20:52 | P.PN ---
Subjective Progress Note Date: 06/15/21 CHIEF COMPLAINT: Pancreatitis HISTORY OF PRESENT ILLNESS: The patient is a 56-year-old female presented to the hospital with acute pancreatitis. She reports her abdominal pain has improved but had abdominal soreness following full liquid diet with ice cream. REVIEW OF ORGAN SYSTEMS: No fevers or chills. No chest pain. No shortness of breath. PHYSICAL EXAM: VITALS: Reviewed CONSTITUTIONAL: Well developed and in no acute distress. EYES: Conjuctivae without sclera icterus. Extraocular movements grossly intact. HEAD, EARS, NOSE, THROAT: Moist buccal mucosa. Head is atraumatic, normocephalic. Hears conversational speech. No nasal drainage. RESPIRATORY: Non-labored respirations and equal bilateral excursions. No gross wheezes. CARDIOVASCULAR: Regular rate and rhythm. ABDOMEN: Tender epigastrium. No peritonitis. MUSCULOSKELETAL: No clubbing cyanosis or edema. SKIN: Warm and well perfused with good skin turgor. NEUROLOGIC: Cranial nerves II through XII grossly intact. Sensation upper and extremities intact. No focal or lateralizing signs. PSYCH: Appropriate affect. Alert and oriented to person, place and time. Displays appropriate insight. CLINCAL LABS: Reviewed. Lipase elevated at 14,000 on admission now down to 343. WBC normal 9.7. ASSESSMENT: 1. Acute pancreatitis PLAN: 1. Patient reports worsening symptoms with ice cream, fatty foods. Recommend low-fat diet. 2. Recommend cholecystectomy while inpatient for gallstone-induced pancreatitis. 3. All questions addressed. Objective - Vital Signs Vital signs: Vital Signs Temp 98.1 F 06/15/21 14:11 Pulse 68 06/15/21 14:11 Resp 16 06/15/21 14:11 BP 127/79 06/15/21 14:11 Pulse Ox 98 06/15/21 14:11 Intake & Output 06/15/21 06/15/21 06/16/21 06:59 18:59 06:59 Intake Total 1000 Balance 1000 Intake: Oral 1000 Other: Voiding Method Toilet # Voids 1 3 - Labs CBC & Chem 7: 06/14/21 07:05 06/14/21 07:05 Assessment and Plan (1) Acute pancreatitis Status: Acute Code(s): K85.90 - ACUTE PANCREATITIS WITHOUT NECROSIS OR INFECTION, UNSP SNOMED Code(s): 631193355
--- NOTE | 2021-06-15 20:53 | P.PN ---
Progress Note - Text Progress Note Date: 06/15/21 Notified by admitting provider that patient will be discharged with outpatient management.
== END 2021-06-15 19:04 | disposition home or self-care (01) | DRG 440 ==
LOC: EC 10:24 → 6PED 12:33
PROVIDERS: ADMIT Internal Medicine; ATTEND Internal Medicine
DX: K85.90 Acute pancreatitis without necrosis or infection, unspecified (principal); F32.9 Major depressive disorder, single episode, unspecified; K21.00 Gastro-esophageal reflux disease with esophagitis, without bleeding; M51.36 Other intervertebral disc degeneration, lumbar region; F41.9 Anxiety disorder, unspecified; M19.90 Unspecified osteoarthritis, unspecified site; K59.09 Other constipation; G47.33 Obstructive sleep apnea (adult) (pediatric); K86.1 Other chronic pancreatitis; M81.0 Age-related osteoporosis without current pathological fracture; G47.00 Insomnia, unspecified; Z79.83 Long term (current) use of bisphosphonates; Z88.5 Allergy status to narcotic agent
CPT/HCPCS: 36415; 74177; 76700; 80053; 81001; 82150; 83605; 83690; 84478; 85025; 85027; 96361; 96374; 96375; 99285

== ENCOUNTER → 2021-09-10 | Outpatient (CLI) | payer OTHER ==
[2021-09-10 13:53] LABS: Basophils # (A) 0.05 X 10*3/uL (0.00-0.10); Basophils % (A) 0.9 %; Eosinophils # (A) 0.08 X 10*3/uL (0.04-0.35); Eosinophils % (A) 1.4 %; HCT 41.3 % (37.2-46.3); HGB 13.5 g/dL (12.0-15.0); Lymphocytes # (A) 1.59 X 10*3/uL (0.90-5.00); Lymphocytes % (A) 27.5 %; MCH 28.3 pg (27.0-32.0); MCHC 32.7 g/dL (32.0-37.0); MCV 86.6 fL (80.0-97.0); Mean Platelet Volume 9.8 fL (9.5-12.2); Monocytes # (A) 0.65 X 10*3/uL (0.20-1.00); Monocytes % (A) 11.2 %; Neutrophils % (A) 58.8 %; Platelet Count 344 X 10*3/uL (140-440); RBC 4.77 X 10*6/uL (4.10-5.20); RDW 14.8 % (11.5-14.5); WBC 5.78 X 10*3/uL (4.50-10.00)
[2021-09-10 13:57] LABS: DHEA Sulfate 43.5 ug/dL (26.0-430.0); Insulin Level 9.9 mIU/mL (3.0-25.0)
[2021-09-10 14:15] LABS: African American GFR (CKD) 118.7 (60.0-200.0); Albumin 4.3 g/dL (3.8-4.9); Albumin/Globulin Ratio 1.66 (1.60-3.17); Anion Gap 11.2 mmol/L (4.00-12.00); BUN/Creat Ratio 9.86 Ratio (12.00-20.00); Blood Urea Nitrogen 5.8 mg/dL (9.0-27.0); C Reactive Protein, High Sens 2.11 mg/L (0.000-3.000); Carbon Dioxide 23.2 mmol/L (21.6-31.8); Folate, Serum 15.7 ng/mL (4.40-31.00); Globulin 2.6 g/dL (1.6-3.3); Non-African American GFR(CKD) 102.4 (60.0-200.0); Potassium 4.1 mmol/L (3.5-5.5); Total Bilirubin 0.3 mg/dL (0.30-1.20); Total Protein 6.9 g/dL (6.2-8.2)
== END | disposition home or self-care (01) ==
LOC: LABWHC1 09-08 10:22
PROVIDERS: ATTEND Pediatrics
DX: K58.9 Irritable bowel syndrome, unspecified (principal); K90.9 Intestinal malabsorption, unspecified; F51.04 Psychophysiologic insomnia; F32.3 Major depressive disorder, single episode, severe with psychotic features; M83.9 Adult osteomalacia, unspecified; R53.83 Other fatigue
CPT/HCPCS: 36415; 80053; 82306; 82607; 82627; 82746; 83036; 83525; 83735; 83880; 84590; 84630; 85025; 86141

== ENCOUNTER → 2021-11-21 | Outpatient (CLI) | payer OTHER ==
--- NOTE | 2021-11-21 20:08 | BD ---
EXAMINATION TYPE: Axial Bone Density DATE OF EXAM: 11/21/2021 COMPARISON: DEXA bone scan October 30, 2019 CLINICAL HISTORY: Postmenopausal female. Height: 5 FT 7 IN Weight: 184 FRAX RISK QUESTIONS: Alcohol (3 or more units per day): NO Family History (Parent hip fracture): NO Glucocorticoids (More than 3mos): NO (Ex: prednisone, prednisolone, methylprednisolone, dexamethasone, and hydrocortisone). History of Fracture in Adulthood: NO Secondary Osteoporosis: 1. Type 1 Diabetes: NO 2. Hyperthyroidism: NO 3. Menopause before 45: NO 4. Malnutrition: NO 5. Chronic liver disease: NO Rheumatoid Arthritis: NO Current Tobacco Use: NO RISK FACTORS HISTORY OF: Surgery to Spine/Hip(right/left)/Wrist (right/left): NO Family History of Osteoporosis: UNSURE Active: NO Diet low in dairy products/other sources of calcium: NO Postmenopausal woman: YES Take estrogen and/or progesterone medications: NO Lost more than 2 inches in height since high school: NO Frequent falls: NO Poor Health: GOOD Hyperparathyroidism: NO Adrenal Insufficiency: NO MEDICATIONS: Osteoporosis Medications: YES Which medication: ALENDRONATE SODIUM How Long: ONE YEAR Additional Medications: ANTI DEPRESSANT, ALENDRONATE SODIUM Additional History: EXAM MEASUREMENTS: Bone mineral densitometry was performed using the [employer] System. Bone mineral density as measured about the Lumbar spine is: ----- L1-L4(G/cm2): 1.205 T Score Values are as follows: ----- L2: 0.3 ----- L3: -0.1 ----- L4: 0.8 ----- L1-L4: 0.2 Bone mineral density has: INCREASED 13.0 % since : 2019 Bone mineral density about the R hip (g/cm2): 0.817 Bone mineral density about the L hip (g/cm2): 0..796 T Score values are as follows: -----R Neck: -1.6 -----L Neck: -1.7 -----R Total: -1.3 -----L Total: -1.5 Bone mineral density has: INCREASED 3.5 % since : 2019 IMPRESSION: Osteopenia (T Score between -2.5 and -1) remains present. There is slightly increased risk of fracture and the patient may be considered for treatment. Re-Screen 2-5 years. NOTE: T-SCORE=SD OF THE YOUNG ADULT MEAN.
== END | disposition home or self-care (01) ==
LOC: RADBDWWP 14:58
PROVIDERS: ATTEND Internal Medicine
DX: M85.89 Other specified disorders of bone density and structure, multiple sites (principal); Z78.0 Asymptomatic menopausal state
CPT/HCPCS: 77080

== ENCOUNTER → 2023-03-31 | Outpatient (CLI) | payer OTHER ==
[2023-03-31 10:25] LABS: Basophils % (A) 1 %; Eosinophils # (A) 0.1 k/uL (0-0.7); Eosinophils % (A) 2 %; HGB 13.2 gm/dL (11.4-16.0); Lymphocytes # (A) 1.8 k/uL (1.0-4.8); Lymphocytes % (A) 31 %; MCH 27.7 pg (25.0-35.0); MCHC 31.5 g/dL (31.0-37.0); MCV 87.9 fL (80.0-100.0); Mean Platelet Volume 6.9; Monocytes # (A) 0.6 k/uL (0-1.0); Monocytes % (A) 10 %; Neutrophils # (A) 3.1 k/uL (1.3-7.7); Neutrophils % (A) 54 %; Platelet Count 407 k/uL (150-450); RBC 4.77 m/uL (3.80-5.40); RDW 14.4 % (11.5-15.5); WBC 5.8 k/uL (3.8-10.6)
[2023-04-01 09:26] LABS: Estimated Average Glucose 123 mg/dL
[2023-04-01 10:18] LABS: ALT 24 U/L; AST 24 U/L; African American GFR (CKD) >90; Alkaline Phosphatase 109 U/L; BUN/Creat Ratio 11.29 Ratio; Blood Urea Nitrogen 7.9 mg/dL; Calcium 8.8 mg/dL; Chloride 106 mmol/L; Chol/HDL Ratio 2.82 Ratio; Globulin 2.5 d/dL; Glucose 91 mg/dL; LDL Cholesterol,Calculated 79.2 mg/dL; Non-African American GFR(CKD) >90; Potassium 4.7 mmol/L; Sodium 140 mmol/L; Total Bilirubin 0.2 mg/dL; Total Protein 6.5 d/dL; VLDL Calculation 18.94 mg/dL
[2023-04-01 10:26] LABS: T4, Free (Free Thyroxine) 1.16 ng/dL
== END | disposition home or self-care (01) ==
LOC: LABWHC1 09:25
PROVIDERS: ATTEND Internal Medicine
DX: Z00.00 Encounter for general adult medical examination without abnormal findings (principal); M85.852 Other specified disorders of bone density and structure, left thigh; F32.9 Major depressive disorder, single episode, unspecified
CPT/HCPCS: 36415; 80053; 80061; 82306; 83036; 84439; 84443; 85025

== ENCOUNTER → 2023-05-23 | Outpatient (CLI) | payer OTHER ==
[2023-05-23 16:27] LABS: Appearance,Urine Turbid (Clear); Bacteria,Urine Few /hpf; Bilirubin,Urine Negative (Negative); Blood,Urine Negative (Negative); Color,Urine Light Red; Glucose,Urine (UA) Negative (Negative); Ketones,Urine Negative (Negative); Leukocyte Esterase,Urine Negative (Negative); Mucus,Urine Few /hpf; Nitrite,Urine Negative (Negative); PH, Urine 5.5 (5.0-8.0); Protein,Urine Trace (Negative); RBC,Urine 2 /hpf (0-5); Specific Gravity,Urine 1.022 (1.001-1.035); Squamous Epithelial Cell,Urine 6 /hpf (0-4); Urobilinogen,Urine <2.0 mg/dL (<2.0); WBC,Urine 2 /hpf (0-5)
--- NOTE | 2023-05-24 20:22 | MM ---
Reason for Exam: Screening (asymptomatic). Last mammogram was performed 2 year(s) and 6 month(s) ago. Patient History: Menarche at age 13. Patient has no children. Postmenopausal. Hormonal Contraceptives for 6 months. Risk Values: Lucille 5 year model risk: 1.5%. NCI Lifetime model risk: 8.5%. Prior Study Comparison: 05/04/2015 Screening Mammogram, [place]. 05/25/2017 Screening Mammogram, [place]. 10/30/2019 Bilateral Screening Mammogram, [facility]. 11/10/2020 Bilateral Screening Mammogram, [facility]. Tissue Density: There are scattered fibroglandular densities. Findings: Analyzed By CAD. There is no suspicious group of microcalcifications or new suspicious mass in either breast. Overall Assessment: Negative, BI-RAD 1 Management: Screening Mammogram of both breasts in 1 year. . Patient should continue monthly self-breast exams. A clinical breast exam by your physician is recommended on an annual basis. This exam should not preclude additional follow-up of suspicious palpable abnormalities. Note on Lucille scores and lifetime risk: 1. A Lucille score greater than 3% is considered moderate risk. If this is the case, consider specialist referral to assess eligibility for a risk reducing agent. 2. If overall lifetime risk for the development of breast cancer is 20% or higher, the patient may qualify for future screening with alternating mammogram and breast MRI. Electronically signed and approved by: Erick Henson M.D. Radiologist
== END | disposition home or self-care (01) ==
LOC: RADMAMWWP 07:29
PROVIDERS: ATTEND Internal Medicine
DX: Z12.31 Encounter for screening mammogram for malignant neoplasm of breast (principal); M85.852 Other specified disorders of bone density and structure, left thigh; Z78.0 Asymptomatic menopausal state
CPT/HCPCS: 77067; 81001